=== PATIENT | female | born 1985 | race Caucasian/White ===

== ENCOUNTER → 2017-12-17 10:37 | Outpatient (CLI) | payer BC, SELFPAY ==
[2017-12-17 12:51] LABS: hCG Titer Quant., Serum 2059 mIU/mL (<9 non-preg)
[2017-12-17 20:07] LABS: Chlamydia Trachomatis by PCR Negative (Negative); Neisserai gonorrhoeae by PCR Negative (Negative); Probe Check PASS; Sample Adequacy Control PASS; Specimen Processing Control PASS
[2017-12-18 09:48] LABS: Progesterone Level 19.35 ng/mL (See Comment)
[2017-12-20 14:17] LABS: HPV Reflexed? NOT INDICATED
== END ==
PROVIDERS: Visit Provider Obstetrics & Gynecology
DX: O20.0 Threatened abortion (principal); Z12.4 Encounter for screening for malignant neoplasm of cervix; Z11.3 Encounter for screening for infections with a predominantly sexual mode of transmission
CPT/HCPCS: 36415; 84144; 84702; 87491; 87591; 88175; G0145

== ENCOUNTER → 2017-12-20 08:23 | Outpatient (CLI) | payer BC, SELFPAY ==
[2017-12-20 09:16] LABS: hCG Titer Quant., Serum 4923 mIU/mL (<9 non-preg)
== END ==
PROVIDERS: Visit Provider Obstetrics & Gynecology
DX: O20.0 Threatened abortion (principal)
CPT/HCPCS: 36415; 84702

== ENCOUNTER → 2017-12-31 15:04 | Outpatient (CLI) | payer BC, SELFPAY ==
[2017-12-31 15:52] LABS: Color, Urine Yellow (Yellow); Glucose, Dipstick Normal (Normal); Ketone-Dipstick Negative (Negative); Leukocyte Esterase-Dipstick 25 /ul (Negative); Nitrite-Dipstick Negative (Negative); Occult Blood-Urine 10 /ul (Negative); Protein-Dipstick Negative (Negative); Specific Gravity, Urine 1.025 (1.002-1.030); Urine Bilirubin Dipstick Negative (Negative); Urine Clarity Turbid (Clear); Urine Urobilinogen Normal (Normal)
[2017-12-31 16:29] LABS: Absolute Lymphocyte Count 1.12 X10^3/ul (0.83-4.51); Absolute Neutrophil Count 4.4 X10^3/uL (2.0-7.7); Basophil# 0.01 X10^3/uL; Basophil% 0.2 % (0-1); Eosinophil# 0.04 X10^3/uL; Eosinophils% 0.7 % (0-5); Hematocrit 36.9 % (37-47); Lymphocyte # 1.12 X10^3/ul (4.0); Lymphocyte % 19.2 % (19-41); Mean Corp Hgb Conc 32.5 g/gl (32-36); Mean Corpuscular Hgb 29.4 pg (27.0-32.0); Mean Corpuscular Volume 90.4 fL (81-99); Monocyte# 0.29 X10^3/uL; Neutrophil # 4.36 X10^3/uL (2.7-7.7); Neutrophil % 74.7 % (47-70); Platelet Count 222 K/mm3 (150-450); RBC Distribution Width CV 14.5 % (11.6-14.6); RBC Distribution Width SD 46.8 fl (35.1-43.9); Red Blood Count 4.08 M/mm3 (4.2-5.4); White Blood Count 5.8 K/mm3 (4.4-11.0)
[2017-12-31 16:32] LABS: Thyroid Stim Hormone (TSH) 1.16 uIU/mL (0.358-3.74)
[2017-12-31 16:36] LABS: POSITIVE COUNT NO; POSITIVE DIFFERENTIAL NO; POSITIVE MORPHOLOGY NO
[2017-12-31 16:47] LABS: Amphetamine Urine VISTA NEGATIVE (<1000 ng/mL); Barbiturate Urine VISTA NEGATIVE (< 200 ng/mL); Benzodiazepine Urine VISTA NEGATIVE (< 200 ng/mL); Cocaine Urine VISTA NEGATIVE (< 300 ng/mL); Ecstacy Urine VISTA POSITIVE (< 500 ng/mL); Methadone Urine VISTA NEGATIVE (< 300 ng/mL); PCP Urine VISTA NEGATIVE (< 25 ng/mL); THC Urine VISTA NEGATIVE (< 50 ng/mL); Vista UDS pH Range 5
[2017-12-31 16:51] LABS: COTININE Drug Screen Negative (<200 ng/mL)
[2018-01-01 09:36] LABS: HIV - WCH Non-Reactive (Nonreactive); Rubella IgG 78.3 IU/mL
[2018-01-02 14:23] LABS: HEPATITIS B SURFACE AG Negative (Negative); Hep C Antibodies 0.1 s/co ratio (0.0-0.9)
[2018-01-03 03:15] LABS: Prenatal RPR NONREACTIVE (NONREACTIVE)
== END ==
PROVIDERS: Visit Provider Obstetrics & Gynecology
DX: Z34.81 Encounter for supervision of other normal pregnancy, first trimester (principal)
CPT/HCPCS: 36415; 80307; 81002; 84443; 85025; 86703; 86762; 86803; 87340

== ENCOUNTER → 2018-05-23 13:16 | Outpatient (CLI) | payer BC, SELFPAY ==
[2018-05-23 14:10] LABS: Hematocrit 32.2 % (37-47); Hemoglobin 10.8 g/dl (12.0-15.0); Mean Corp Hgb Conc 33.5 g/gl (32-36); Mean Corpuscular Hgb 31.4 pg (27.0-32.0); Mean Corpuscular Volume 93.6 fL (81-99); Mean Platelet Vol. 9.6 fl (6.2-12.0); Platelet Count 194 K/mm3 (150-450); RBC Distribution Width CV 13.3 % (11.6-14.6); Red Blood Count 3.44 M/mm3 (4.2-5.4); White Blood Count 7.8 K/mm3 (4.4-11.0)
[2018-05-23 14:13] LABS: AST(SGOT) 12 U/L (15-37); Alanine Aminotransfer ALT/SGPT 16 U/L (13-56); Creatinine, Serum 0.61 mg/dL (0.55-1.02); EST Glomerular Filtration Rate 120 mL/min (>60); Est Glom Filt Rate - Afr Amer 145 mL/min (>60); Glucose Challenge Gest 1H 50g 108 mg/dL (70-140); Uric Acid 2.9 mg/dL (2.6-6.0)
[2018-05-23 14:14] LABS: Protein, Urine (Random) 16.2 mg/dL (<11.9)
[2018-05-23 14:15] LABS: International Normalized Ratio 0.9; Partial Thromboplast Time 25.4 Seconds (24.1-36.2); Prothrombin Time (Protime)PT. 12.5 SECONDS (11.7-14.9)
[2018-05-23 14:19] LABS: Scan Indicated on CBC? Y/N NO
== END ==
PROVIDERS: Visit Provider Obstetrics & Gynecology
DX: Z34.83 Encounter for supervision of other normal pregnancy, third trimester (principal)
CPT/HCPCS: 36415; 82565; 82570; 82950; 84156; 84450; 84460; 84550; 85027; 85610; 85730

== ENCOUNTER → 2018-07-24 14:52 | Outpatient (CLI) | payer BC, SELFPAY ==
[2018-07-24 17:33] LABS: Group B Strep DNA By PCR Negative (Negative); Internal Control PASS; Probe Check PASS; Specimen Processing Control PASS
== END ==
PROVIDERS: Visit Provider Obstetrics & Gynecology
DX: Z36.85 Encounter for antenatal screening for Streptococcus B (principal)
CPT/HCPCS: 87081; 87653

== ENCOUNTER → 2018-08-01 11:35 | Outpatient (CLI) | payer BC, SELFPAY ==
[2018-08-01 12:15] LABS: Prothrombin Time (Protime)PT. 12.8 SECONDS (11.7-14.9)
[2018-08-01 12:16] LABS: Hematocrit 33.8 % (37-47); Hemoglobin 11.4 g/dl (12.0-15.0); Mean Corp Hgb Conc 33.7 g/gl (32-36); Mean Corpuscular Hgb 31.3 pg (27.0-32.0); Mean Corpuscular Volume 92.9 fL (81-99); Mean Platelet Vol. 10.4 fl (6.2-12.0); Partial Thromboplast Time 25.1 Seconds (24.1-36.2); Platelet Count 149 K/mm3 (150-450); RBC Distribution Width CV 13.6 % (11.6-14.6); RBC Distribution Width SD 44.6 fl (35.1-43.9); Red Blood Count 3.64 M/mm3 (4.2-5.4); White Blood Count 5.9 K/mm3 (4.4-11.0)
[2018-08-01 12:27] LABS: Scan Indicated on CBC? Y/N NO
[2018-08-01 12:49] LABS: AST(SGOT) 15 U/L (15-37); Alanine Aminotransfer ALT/SGPT 20 U/L (13-56); Creatinine, Serum 0.79 mg/dL (0.55-1.02); EST Glomerular Filtration Rate 88 mL/min (>60); Est Glom Filt Rate - Afr Amer 106 mL/min (>60); Uric Acid 5.1 mg/dL (2.6-6.0)
[2018-08-01 14:03] LABS: Microalbumin:Creatinine Ratio 87.1 mg/g CRE (<30 mg/g CRE); Protein, Urine (Random) 44.3 mg/dL (<11.9)
== END ==
PROVIDERS: Visit Provider Obstetrics & Gynecology
DX: O13.9 Gestational [pregnancy-induced] hypertension without significant proteinuria, unspecified trimester (principal); Z3A.00 Weeks of gestation of pregnancy not specified
CPT/HCPCS: 36415; 82043; 82565; 82570; 84156; 84450; 84460; 84550; 85027; 85610; 85730

== ENCOUNTER 2018-08-03 19:05 | Inpatient (IN) | payer BC, SELFPAY ==
[2018-08-03] VITALS (14 sets, daily range): BP systolic 132–163; BP diastolic 61–95; PULSE 69–92; RESP 12–20; TEMP 36.4–37.1; O2SAT 96–98; BMI 54.2
[2018-08-03] MEDS: 0.9% Saline Lock 10 ML Syringe IV (19:10)
[2018-08-03] MEDS: Lactated Ringers 1,000 ML 999 ML IV (19:10)
[2018-08-03 19:23] LABS: Hematocrit 35.1 % (37-47); Hemoglobin 11.5 g/dl (12.0-15.0); Mean Corp Hgb Conc 32.8 g/gl (32-36); Mean Corpuscular Hgb 30.8 pg (27.0-32.0); Mean Corpuscular Volume 94.1 fL (81-99); Mean Platelet Vol. 10.3 fl (6.2-12.0); Platelet Count 149 K/mm3 (150-450); RBC Distribution Width SD 48.3 fl (35.1-43.9); Red Blood Count 3.73 M/mm3 (4.2-5.4); Scan Indicated on CBC? Y/N NO; White Blood Count 5.7 K/mm3 (4.4-11.0)
[2018-08-03 19:31] LABS: International Normalized Ratio 1.1; Partial Thromboplast Time 27.7 Seconds (24.1-36.2); Prothrombin Time (Protime)PT. 14.6 SECONDS (11.7-14.9)
[2018-08-03] MEDS: Sodium Citrate/Citric Acid 30 ML UDC PO (19:32)
[2018-08-03 19:47] LABS: Protein, Urine (Random) 109.2 mg/dL (<11.9); Protein:Creat Ratio 821 mg/g CRE (0-200)
[2018-08-03 19:48] LABS: ALB/GLOB Ratio 0.6 RATIO (0.9-2.4); AST(SGOT) 11 U/L (15-37); Alanine Aminotransfer ALT/SGPT 13 U/L (13-56); Albumin, Serum 1.3 g/dL (3.2-5.0); Alkaline Phosphatase 58 U/L (45-117); Anion Gap 15 (5-15); BUN 8 mg/dL (7-18); BUN/Creat Ratio 25.7 RATIO (10-20); Calcium,Total 7.2 mg/dL (8.5-10.1); Chloride 108 mmol/L (98-107); Creatinine, Serum 0.31 mg/dL (0.55-1.02); EST Glomerular Filtration Rate 258 mL/min (>60); Est Glom Filt Rate - Afr Amer 312 mL/min (>60); Estimated Creatinine Clearance 209.53 ml/min; Globulin 2.2 g/dL (2.2-4.2); Glucose 59 mg/dL (74-106); Potassium 4.1 mmol/L (3.5-5.1); Protein, Total 3.5 g/dL (6.4-8.2); Sodium Level 139 mmol/L (136-145); Total Bilirubin < 0.10 mg/dL (0.20-1.00); Uric Acid 3.1 mg/dL (2.6-6.0)
[2018-08-03] MEDS: Magnesium Sulfate 20 GM/500 ML BAG IV (20:00)
[2018-08-03] MEDS: Lactated Ringers 1,000 ML 150 ML IV (20:30)
[2018-08-03] MEDS: Oxytocin 30 units/NS 500 ml 30 UNITS/500 ML IV.SOLN 167 UNITS IV (21:00)
--- NOTE | 2018-08-03 21:16 | PCM.OB.CSR ---
- Problem List (1) Chronic hypertension with superimposed preeclampsia Status: Acute (2) 37 weeks gestation of Status: Acute (3) delivery delivered Status: Acute Delivery Classification: EVANS Final RICHARD: 08/27/18 Final RICHARD Source: US <20 weeks Gestational age: 36 Weeks and 4 Days [place] doctor who attended delivery (if requested by OB): Ml Rowe Indications: 33year old @ 37 4/7wga with history of 2 prior sections admitted with chronic hypertension superimposed preeclampsia for repeat section. Risks, benefits, indications reviewed and informed consent obtained. Indications for : Repeat Elective , - - chronic hypertension with superimposed preeclampsia Description of Procedure: Patient was brought to the OR and sign in performed. Spinal analgesia was placed and the patient repositioned into dorsal supine position with left lateral tilt. FHR obtained 140 bpm. The abdominal retraction system was applied and sharma catheter placed. Time out performed. The abdomen was prepped and draped in sterile fashion and the spinal found to be adequate. A Pfannenstiel incision was made and brought down to incise the rectus fascia at the midline and the fascial incision extended laterally. The superior leaflet of the rectus fascia was bluntly and sharply dissected from the underlying muscle. In similar fashion the inferior rectus fascia was dissected from the underlying muscle. The rectus muscles were sharply and the midline and the peritoneum sharply entered. The peritoneal incision was extended. The bladder blade was placed into the abdomen. The vesicouterine peritoneum was identified and bladder flap created. The bladder blade was repositioned. A low transverse hysterotomy was performed using the Metzumbaum scissors. The hysterotomy was bluntly extended and the head brought to the hysterotomy. A vigorous male delivered. The cord was doubly clamped and cut after approximately 60 seconds. The was passed to the awaiting Pediatric Hospitalist. The placenta was expressed from the uterus and appeared intact on inspection. The uterus was cleared of debris. The hysterotomy was repaired using 0 Vicryl. A second imbricating layer was placed for additional hemostasis. There was however few sites of bleeding from venous sinuses. Several figure of eight sutures were placed with hemostasis attained. The peritoneum was reapproximated using 2-0 Vicryl. The rectus fascia was reapproximated using 0 Vicryl. The subcutaneous tissue was reapproximated in 3 layers using 0-Vicryl, 0-Vicryl and 3-0Vicryl, respectively. The skin was closed using 4-0 Monocryl by the FENCE LABORER under my supervision. The patient was transferred to the recovery room without complication. She tolerated the procedure well. Sponge, needle and instrument counts were correct x 2. 4040g Amniotic Membrane Rupture Type: Artificial Amniotic Fluid Description: Clear Placenta Disposition: Sent to Pathology Specimen(s) sent to pathology: placenta Drain: Sharma to straight drain Fluids Replaced: 2000ml Cord Entanglement: None Nuchal Cord Compression: Without compression Cord Vessel Description: 3 Vessels Esitmated Blood Loss (ml): 600 Infant Gender: Male (1 minute): 9 (5 minute): 9 Delayed cord clamping: Yes Pre-op Antibiotic Given: - - Ancef 3g IV x 1 Pt instructed on risks of surgery: Bleeding, Anesthesia Risks, Infection, Need for Future C-Sections, Injury to surrounding structure(s) including bowel and bladder Complications: None - Admit VTE Documentation VTE Present on Admission: No VTE Mechan Device Prophylaxis: SCD's VTE Pharm Prophylaxis ordered?: No
--- NOTE | 2018-08-03 21:27 | OP.PCM_ITS ---
- Problem List (1) Chronic hypertension with superimposed preeclampsia Status: Acute (2) 37 weeks gestation of Status: Acute (3) delivery delivered Status: Acute Delivery Classification: EVANS Final RICHARD: 08/27/18 Final RICHARD Source: US <20 weeks Gestational age: 36 Weeks and 4 Days [place] doctor who attended delivery (if requested by OB): Ml Rowe Indications: 33year old @ 37 4/7wga with history of 2 prior sections admit roz with chronic hypertension superimposed preeclampsia for repeat section. Risks, benefits, indications reviewed and informed consent obtained. Indications for : Repeat Elective , - - chronic hypertension with superimposed preeclampsia Description of Procedure: Patient was brought to the OR and sign in performed. Spinal analgesia was placed and the patient repositioned into dorsal supine position with left lateral tilt. FHR obtained 140 bpm. The abdominal retraction system was applied and sharma catheter placed. Time out performed. The abdomen was prepped and draped in sterile fashion and the spinal found to be adequate. A Pfannenstiel incision was made and brought down to incise the rectus fascia at the midline and the fascial incision extended laterally. The superior leaflet of the rectus fascia was bluntly and sharply dissected from the underlying muscle. In similar fashion the inferior rectus fascia was dissected from the underlying muscle. The rectus muscles were sharply and the midline and the peritoneum sharply entered. The peritoneal incision was extended. The bladder blade was placed into the abdomen. The vesicouterine peritoneum was identified and bladder flap created. The bladder blade was repositioned. A low transverse hysterotomy was performed using the Metzumbaum scissors. The hysterotomy was bluntly extended and the head brought to the hysterotomy. A vigorous male delivered. The cord was doubly clamped and cut after approximately 60 seconds. The was passed to the awaiting Pediatric Hospitalist. The placenta was expressed from the uterus and appeared intact on inspection. The uterus was cleared of debris. The hysterotomy was repaired using 0 Vicryl. A second imbricating layer was placed for additional hemostasis. There was however few sites of bleeding from venous sinuses. Several figure of eight sutures were placed with hemostasis attained. The peritoneum was reapproximated using 2-0 Vicryl. The rectus fascia was reapproximated using 0 Vicryl. The subcutaneous tissue was reapproximated in 3 layers using 0-Vicryl, 0-Vicryl and 3-0Vicryl, respectively. The skin was closed using 4-0 Monocryl by the SENIOR SYSTEMS PROGRAMMER under my supervision. The patient was transferred to the recovery room without complication. She tolerated the procedure well. Sponge, needle and instrument counts were correct x 2. Infant 4040g Amniotic Membrane Rupture Type: Artificial Amniotic Fluid Description: Clear Placenta Disposition: Sent to Pathology Specimen(s) sent to pathology: placenta Drain: Sharma to straight drain Fluids Replaced: 2000ml Cord Entanglement: None Nuchal Cord Compression: Without compression Cord Vessel Description: 3 Vessels Esitmated Blood Loss (ml): 600 Infant Gender: Male (1 minute): 9 (5 minute): 9 Delayed cord clamping: Yes Pre-op Antibiotic Given: - - Ancef 3g IV x 1 Pt instructed on risks of surgery: Bleeding, Anesthesia Risks, Infection, Need for Future C-Sections, Injury to surrounding structure(s) including bowel and bladder Complications: None - Admit VTE Documentation VTE Present on Admission: No VTE Mechan Device Prophylaxis: SCD's VTE Pharm Prophylaxis ordered?: No
--- NOTE | 2018-08-03 21:31 | PLAC_PTH ---
PATIENT: REI FLANAGAN LOC: [facility] U#:[id number] AGE/SX: 33/F ROOM: WP011 RE08/03/[address]: Dr. Ana Lujan MD : 1985 BED: 1 DIS: 08/06/2018 SPEC #: [id number] RECD: 08/04/18 04:03 STATUS: NAMITA SHALA #: [id number] TARA: 08/03/18 21:[address]: Ana Thompson DEPT: SURGICAL PATHOLOGY RECD BY: Glenroy Schulte Tissues: Placenta, NOS Procedures: Surgery Specimen Level V HEADER OPERATION: Repeat section PRE-OP DIAGNOSIS: CHTN with superimposed preeclampsia, 37 weeks TISSUE SUBMITTED: Placenta MICROSCOPIC DIAGNOSIS Placenta: Placental disc - third trimester placenta (535 gm). Focal area of intraparenchymal hemorrhage (1.5 and 2 cm in greatest dimension). Membranes - no pathologic diagnosis. Umbilical cord - three blood vessels and no pathologic diagnosis. SJ:emmanuel 08/06/18 MICROSCOPIC DESCRIPTION Slides are reviewed. GROSS DESCRIPTION SPECIMEN: PLACENTA / CLINICAL INFORMATION: A. Weight: 4.04 kg B. Gestational Age: 37 weeks C. Sex: Male PLACENTAL WEIGHT (POST FIXATION): 535 gm PLACENTAL DIMENSIONS: 21 x 15 x 3 cm PLACENTAL SHAPE: Usual ovoid PLACENTAL WEIGHT FOR GESTATIONAL AGE: Within 10-99th percentile MEMBRANES - Present A. Insertion: Marginal B. Site of rupture from edge: 5 cm from edge of placental disc. C. Color of membrane: Jaime-short D. Abnormalities: None UMBILICAL CORD - Present A. Color: Jaime-short B. Insertion: Paracentral C. Length: 28 cm D. Diameter: 1.5cm E. Number of vessels: Three F. Abnormalities: None PLACENTAL DISC - Present A. Color of surface: Jaime-short B. surface abnormalities: None C. Maternal cotyledons: Intact with minimal tears. Maternal surface is partly disrupted in one-half of the placenta. No obvious clots are identified in this portion. D. Attached retro placental clot: No clot E. Cut surface: Dark red and spongy F. Lesions: Sections reveal two jaime, hemorrhagic and indurated areas measuring 1.5 and 2 cm in greatest dimension. G. Separate clot: Absent SECTIONS SUBMITTED: 1. Membrane roll 2. Cord, maternal end 3. Cord, end, smaller lesion 4. Placental disc, and maternal surfaces, larger lesion 5. Placental disc, and maternal surfaces 6. Placental disc, and maternal surfaces SIMA:emmanuel 08/05/18 TC:5 CPT: 45940
--- NOTE | 2018-08-03 21:47 | PCM.DCCSEC ---
Discharge Diet: No Restrictions Discharge Activity: Return to Normal Activity, May not drive while taking narcotic pain medications., May Shower May resume sexual activity in: 6 weeks Lifting Restrictions: 10-20 lb Call your doctor if your incision/area has: Continuous Slow Oozing, Sudden Increased Bleeding, Increased Pain/ Swelling, Increased Redness, Foul Smelling Discharge Call your doctor if you observe: Fever of 101 or Higher, Inability to urinate, Inability to have a bowel movement, Using more than one pad per hour, Shortness of breath, Chest pain, Calf discomfort, Uncontrolled pain Suture Line Care: Avoid Pulling/Pushing Remove Dressing in (days):: 5 Cleanse incision/area with: Soap & Water Instructions: Discharge Instructions for High Blood Pressure (Hypertension) Additional Instructions: If you experience any of the following, contact your healthcare provider. Bleeding that soaks a pad every hour for 2 hours Fever 100.4 or higher Unrelieved incision or abdominal pain Swelling, redness, discharge or bleeding from your incision or episiotomy site Your incision begins to separate Problems urinating (including inability to urinate or burning while urinating). Visual changes Severe headache Flu-like symptoms Pain or redness in one of both of your breasts Pain, warmth, tenderness or swelling in your legs, especially the calf area Frequent nausea and vomiting Symptoms of depression or anxiety If you experience any of the following, call 911 or go to the nearest Emergency Room. Chest pain Problems breathing Seizure activity Partial or complete paralysis of a body part, slurred speech, weakness or drooping of the face, or a sudden inability to walk or hold your balance Allergies/Adverse Reactions: Allergies Sulfa (Sulfonamide Antibiotics) Adverse Reaction (Verified 04/24/17 13:17) Vomiting Medications to take at Discharge Docusate Sodium [Colace] 100 mg PO BID PRN PRN #60 capsule 08/03/18 Oxycodone [Oxyir] 5 mg PO Q6H PRN PRN 5 Days #20 tablet 08/03/18 The following prescriptions were given: Oxycodone [Oxyir] 5 mg PO Q6H PRN PRN 5 Days #20 tablet PRN Reason: Severe Pain (6-07/16) Docusate Sodium [Colace] 100 mg PO BID PRN PRN #60 capsule PRN Reason: Constipation Follow-Up: Call to make an appointment with your doctor for an incision check in 1-2 weeks. You will also need a 6 week post- follow up appointment. Test results from this visit will be discussed in further detail at your follow-up appointment, if applicable. Please Follow Up With: Gavino Cortez MD - Blood pressure, incision check When: 7-10 days Please Follow Up With: Gavino Cortez MD - visit When: 6 weeks
--- NOTE | 2018-08-03 21:50 | DCINST_ITS ---
Discharge Diet: No Restrictions Discharge Activity: Return to Normal Activity, May not drive while taking narcotic pain medications., May Shower May resume sexual activity in: 6 weeks Lifting Restrictions: 10-20 lb Call your doctor if your incision/area has: Continuous Slow Oozing, Sudden Increased Bleeding, Increased Pain/ Swelling, Increased Redness, Foul Smelling Discharge Call your doctor if you observe: Fever of 101 or Higher, Inability to urinate, Inability to have a bowel movement, Using more than one pad per hour, Shortness of breath, Chest pain, Calf discomfort, Uncontrolled pain Suture Line Care: Avoid Pulling/Pushing Remove Dressing in (days):: 5 Cleanse incision/area with: Soap & Water Instructions: Discharge Instructions for High Blood Pressure (Hypertension) Additional Instructions: If you experience any of the following, contact your healthcare provider. * Bleeding that soaks a pad every hour for 2 hours * Fever 100.4 or higher * Unrelieved incision or abdominal pain * Swelling, redness, discharge or bleeding from your incision or episiotomy site * Your incision begins to separate * Problems urinating (including inability to urinate or burning while urinating). * Visual changes * Severe headache * Flu-like symptoms * Pain or redness in one of both of your breasts * Pain, warmth, tenderness or swelling in your legs, especially the calf area * Frequent nausea and vomiting * Symptoms of depression or anxiety If you experience any of the following, call 911 or go to the nearest Emergency Room. * Chest pain * Problems breathing * Seizure activity * Partial or complete paralysis of a body part, slurred speech, weakness or drooping of the face, or a sudden inability to walk or hold your balance Allergies/Adverse Reactions: Allergies Sulfa (Sulfonamide Antibiotics) Adverse Reaction (Verified 04/24/17 13:17) Vomiting Medications to take at Discharge Docusate Sodium [Colace] 100 mg PO BID PRN PRN #60 capsule 08/03/18 Oxycodone [Oxyir] 5 mg PO Q6H PRN PRN 5 Days #20 tablet 08/03/18 The following prescriptions were given: Oxycodone [Oxyir] 5 mg PO Q6H PRN PRN 5 Days #20 tablet PRN Reason: Severe Pain (-07/16) Docusate Sodium [Colace] 100 mg PO BID PRN PRN #60 capsule PRN Reason: Constipation Follow-Up: Call to make an appointment with your doctor for an incision check in 1-2 weeks. You will also need a 6 week post- follow up appointment. Test results from this visit will be discussed in further detail at your follow- up appointment, if applicable. Please Follow Up With: Gavino Cortez MD - Blood pressure, incision check When: 7-10 days Please Follow Up With: Gavino Cortez MD - visit When: 6 weeks
[2018-08-04] VITALS (26 sets, daily range): BP systolic 104–148; BP diastolic 57–78; PULSE 72–89; RESP 14–20; TEMP 36.6–37.3; O2SAT 94–99
[2018-08-04 04:05] LABS: Pathology Specimen OB SEE PATHOLOGY REPORT
[2018-08-04] MEDS: Ketorolac 30 MG/ML Syringe IV ×3 (04:29→20:28)
[2018-08-04] MEDS: Magnesium Sulfate 20 GM/500 ML BAG IV ×2 (06:44→17:04)
[2018-08-04] MEDS: Lactated Ringers 500 ML 999 ML IV (07:15)
[2018-08-04] MEDS: Lactated Ringers 1,000 ML 50 ML IV (07:45)
--- NOTE | 2018-08-04 07:52 | NURSING ---
Dr. Spivey notified at 0615 that pt's sharma was emptied for 175cc of concentrated, clear, fidel urine. Sharma last emptied at 0000. also notified of AM BP's of 105/57 and 104/71. ordered 500cc bolus of LR over 30 minutes, hold 0600 labetolol dose this am, and draw serum creatinine with cbc this am.
--- NOTE | 2018-08-04 08:12 | PCM.PN.OB ---
Patient Problems: Active and Suspected Problems Chronic hypertension with superimposed preeclampsia (Acute) 37 weeks gestation of (Acute) delivery delivered (Acute) Subjective: Relates sinus headache and requests Zyrtec. Denies vision changes or abdominal pain. Incisional pain well controlled. She feels well this morning. No nausea or vomiting. Objective: AVSS - Physical Exam General: Alert, Oriented x3, Cooperative, No apparent distress HEENT: Atraumatic, Normocephalic Lungs: Clear to auscultation, Normal air movement Cardiovascular: Regular rate, Regular Rhythm, Normal S1, Normal S2 Abdomen: Bowel Sounds Present, Soft, Non Tender, Non-Distended, - - Fundus firm and nontender - pannal edema present - incisional dressing c/d/i, lochia scant Extremities: No Calf Tenderness, - - +1 b/l LE edema Neurological: - - No clonus, +2 b/l LE DTRs Psych/Mental Status: Normal Affect, Appropriate, Alert and oriented to time, place, person, mood and affect Vital Signs Temp Pulse Resp BP Pulse Ox 98.1 F 77 16 105/57 L 97 08/04/18 06:48 08/04/18 06:48 08/04/18 06:48 08/04/18 06:48 08/04/18 06:48 Oxygen Delivery Method CPAP Weight: 138.9 kg Body Mass Index (BMI) 54.2 Intake and Output for Last 24 Hours 08/02/18 08/03/18 08/04/18 23:59 23:59 23:59 Intake Total 3416 / 3416 1750 / 1750 Output Total 200 / 200 175 / 175 Balance 3216 / 3216 1575 / 1575 Laboratory Tests Past 24 Hrs 08/03/18 08/03/18 08/03/18 19:10 19:10 19:10 WBC 5.7 RBC 3.73 L Hgb 11.5 L Hct 35.1 L MCV 94.1 MCH 30.8 MCHC 32.8 RDW 14.0 RDW Differential 48.3 H Plt Count 149 L MPV 10.3 PT 14.6 INR 1.1 APTT 27.7 Sodium 139 Potassium 4.1 Chloride 108 H Carbon Dioxide 16.0 L Anion Gap 15 BUN 8 Creatinine 0.31 L Estim Creat Clear Calc 209.53 Est GFR (MDRD) Af Amer 312 Est GFR (MDRD) Non-Af 258 BUN/Creatinine Ratio 25.7 H Glucose 59 L Uric Acid 3.1 Calcium 7.2 L Total Bilirubin < 0.10 L AST 11 L ALT 13 Alkaline Phosphatase 58 Total Protein 3.5 L Albumin 1.3 L Globulin 2.2 Albumin/Globulin Ratio 0.6 L U Random Total Protein Urine Creatinine Protein/Creatinin Ratio Blood Type Antibody Screen 08/03/18 08/03/18 19:10 19:30 WBC RBC Hgb Hct MCV MCH MCHC RDW RDW Differential Plt Count MPV PT INR APTT Sodium Potassium Chloride Carbon Dioxide Anion Gap BUN Creatinine Estim Creat Clear Calc Est GFR (MDRD) Af Amer Est GFR (MDRD) Non-Af BUN/Creatinine Ratio Glucose Uric Acid Calcium Total Bilirubin AST ALT Alkaline Phosphatase Total Protein Albumin Globulin Albumin/Globulin Ratio U Random Total Protein 109.2 H Urine Creatinine 133.00 Protein/Creatinin Ratio 821 H Blood Type A POSITIVE Antibody Screen NEGATIVE Medical Necessity - Tobacco Use Smoking Status: Never smoker Assessment/Plan All Active Problems Chronic hypertension with superimposed preeclampsia (Acute) 37 weeks gestation of (Acute) delivery delivered (Acute) 33yo POD#1 s/p RLTCS for cHTN with superimposed preeclampsia -BPs improved this am - am Labetalol held, will continue to monitor -UO low - 500cc bolus given -Continue magnesium to 24h or diuresis -Routine postop care -Rh positive
[2018-08-04 08:33] LABS: Hemoglobin 9.5 g/dl (12.0-15.0); Mean Corp Hgb Conc 32.8 g/gl (32-36); Mean Corpuscular Volume 94.8 fL (81-99); Platelet Count 113 K/mm3 (150-450); RBC Distribution Width CV 14.2 % (11.6-14.6); RBC Distribution Width SD 48.6 fl (35.1-43.9); Red Blood Count 3.06 M/mm3 (4.2-5.4); White Blood Count 5.8 K/mm3 (4.4-11.0)
[2018-08-04 08:34] LABS: Scan Indicated on CBC? Y/N NO
[2018-08-04 08:58] LABS: Creatinine, Serum 0.77 mg/dL (0.55-1.02); EST Glomerular Filtration Rate 91 mL/min (>60); Est Glom Filt Rate - Afr Amer 110 mL/min (>60); Estimated Creatinine Clearance 84.36 ml/min
[2018-08-04] MEDS: Senna/Docusate Sodium 1 Tablet PO (09:14)
[2018-08-04] MEDS: Acetaminophen 500 MG Tablet 1000 MG PO ×2 (09:15→17:03)
[2018-08-04] MEDS: 0.9% Saline Lock 10 ML Syringe IV ×2 (12:17→20:29)
[2018-08-04] MEDS: Labetalol 200 MG Tablet 600 MG PO ×2 (14:02→21:57)
--- NOTE | 2018-08-04 19:29 | NURSING ---
rate verified with LCoe RN at shift change.
[2018-08-05 01:25] VITALS: BP 141/72; PULSE 85; RESP 18; TEMP 37.1; O2SAT 98
[2018-08-05] MEDS: oxyCODONE 5 MG Tablet PO ×4 (01:32→21:45)
[2018-08-05] MEDS: 0.9% Saline Lock 10 ML Syringe IV ×3 (04:18→18:36)
[2018-08-05] MEDS: Ketorolac 30 MG/ML Syringe IV ×3 (04:20→18:36)
[2018-08-05 05:44] VITALS: BP 134/64; PULSE 80; RESP 18; TEMP 36.8; O2SAT 98
[2018-08-05] MEDS: Labetalol 200 MG Tablet 600 MG PO ×3 (05:49→21:45)
[2018-08-05 06:14] LABS: Absolute Lymphocyte Count 0.83 X10^3/ul (0.83-4.51); Basophil# 0.01 X10^3/uL; Basophil% 0.2 % (0-1); Eosinophil# 0.03 X10^3/uL; Eosinophils% 0.6 % (0-5); Hematocrit 27.2 % (37-47); Hemoglobin 8.8 g/dl (12.0-15.0); Lymphocyte # 0.83 X10^3/ul (4.0); Lymphocyte % 16.1 % (19-41); Mean Corp Hgb Conc 32.4 g/gl (32-36); Mean Corpuscular Hgb 30.9 pg (27.0-32.0); Mean Corpuscular Volume 95.4 fL (81-99); Mean Platelet Vol. 9.7 fl (6.2-12.0); Monocyte# 0.26 X10^3/uL; Neutrophil # 4.02 X10^3/uL (2.7-7.7); Neutrophil % 77.7 % (47-70); Platelet Count 123 K/mm3 (150-450); RBC Distribution Width CV 14.1 % (11.6-14.6); RBC Distribution Width SD 46.3 fl (35.1-43.9); Red Blood Count 2.85 M/mm3 (4.2-5.4); White Blood Count 5.2 K/mm3 (4.4-11.0)
[2018-08-05 06:24] LABS: POSITIVE COUNT NO; POSITIVE DIFFERENTIAL NO; POSITIVE MORPHOLOGY NO
[2018-08-05 07:50] VITALS: BP 140/77; PULSE 83; RESP 16; TEMP 37.3; O2SAT 98
[2018-08-05] MEDS: Senna/Docusate Sodium 1 Tablet PO (07:54)
--- NOTE | 2018-08-05 08:15 | PCM.PN.OB ---
Patient Problems: Active and Suspected Problems Chronic hypertension with superimposed preeclampsia (Acute) 37 weeks gestation of (Acute) delivery delivered (Acute) Subjective: Denies headache, vision changes. She is sore this morning. OOB to chair and walking. Passing flatus. Infant is being monitored for blood sugars. Objective: AVSS - Physical Exam General: Alert, Oriented x3, Cooperative, No apparent distress HEENT: Atraumatic, Normocephalic Lungs: Clear to auscultation, Normal air movement Cardiovascular: Regular rate, Regular Rhythm, Normal S1, Normal S2 Abdomen: Bowel Sounds Present, Soft, Non Tender, Non-Distended, - - Incisional dressing c/d/i Extremities: No Calf Tenderness, - - b/l LE edema to calves - 1+ Neurological: Neuro grossly intact Psych/Mental Status: Normal Affect, Appropriate, Alert and oriented to time, place, person, mood and affect Vital Signs Temp Pulse Resp BP Pulse Ox 98.3 F 80 18 134/64 H 98 08/05/18 05:44 08/05/18 05:44 08/05/18 05:44 08/05/18 05:44 08/05/18 05:44 Oxygen Delivery Method Room Air Weight: 138.9 kg Body Mass Index (BMI) 54.2 Intake and Output for Last 24 Hours 08/03/18 08/04/18 08/05/18 23:59 23:59 23:59 Intake Total 3416 / 3416 3824 / 3824 Output Total 200 / 200 2105 / 2105 200 / 200 Balance 3216 / 3216 1719 / 1719 -200 / -200 Laboratory Tests Past 24 Hrs 08/04/18 08/04/18 08/05/18 07:50 07:50 06:00 WBC 5.8 5.2 RBC 3.06 L 2.85 L Hgb 9.5 L 8.8 L Hct 29.0 L 27.2 L MCV 94.8 95.4 MCH 31.0 30.9 MCHC 32.8 32.4 RDW 14.2 14.1 RDW Differential 48.6 H 46.3 H Plt Count 113 L 123 L MPV 10.0 9.7 Immature Gran % (Auto) 0.400 Neut % (Auto) 77.7 H Lymph % (Auto) 16.1 L [place] % (Auto) 5.0 Eos % (Auto) 0.6 Baso % (Auto) 0.2 Absolute Neuts (auto) 4.0 Absolute Lymphs (auto) 0.83 Total Counted Not Reportable Creatinine 0.77 Estim Creat Clear Calc 84.36 Est GFR (MDRD) Af Amer 110 Est GFR (MDRD) Non-Af 91 Medical Necessity - Tobacco Use Smoking Status: Never smoker Assessment/Plan All Active Problems Chronic hypertension with superimposed preeclampsia (Acute) 37 weeks gestation of (Acute) delivery delivered (Acute) 33yo POD#2 s/p RLTCS for cHTN with superimposed preeclampsia -s/p magnesium. -BPs normal to mildly elevated - will titrate antihypertensive as needed. -Rh positive -Routine postop care
--- NOTE | 2018-08-05 08:41 | NURSING ---
pt provided contour gel pads and instructed on use
[2018-08-05] MEDS: Sertraline 50 MG Tablet PO (10:28)
[2018-08-05] MEDS: Acetaminophen 500 MG Tablet 1000 MG PO (10:33)
[2018-08-05 14:30] VITALS: BP 147/73; PULSE 80; RESP 16; TEMP 37; O2SAT 95
[2018-08-05 20:00] VITALS: BP 152/73; PULSE 76; RESP 18; TEMP 37.8; O2SAT 97
[2018-08-05 22:20] VITALS: BP 149/74; PULSE 75
[2018-08-06 04:00] VITALS: BP 156/80; PULSE 85; RESP 16; TEMP 37.1; O2SAT 98
[2018-08-06] MEDS: Acetaminophen 500 MG Tablet 1000 MG PO ×2 (04:31→14:33)
[2018-08-06] MEDS: Labetalol 200 MG Tablet 600 MG PO ×2 (06:19→14:33)
[2018-08-06 08:10] VITALS: BP 148/75; PULSE 82; RESP 16; TEMP 37.1; O2SAT 97
--- NOTE | 2018-08-06 08:32 | PCM.PN.OB ---
Patient Problems: Active and Suspected Problems Chronic hypertension with superimposed preeclampsia (Acute) 37 weeks gestation of (Acute) delivery delivered (Acute) Subjective: No complaints. Pain reasonably controlled. Breast feeding and pumping. Objective: Afeb BP stable but modestly elevated. - Physical Exam General: Alert, Oriented x3, Cooperative, No apparent distress Lungs: Clear to auscultation, Normal air movement Cardiovascular: Regular rate, Regular Rhythm Abdomen: Soft, Non Tender, Non-Distended, - - Incision dressing dry. Extremities: Edema - 1+ Skin: No rashes Neurological: Neuro grossly intact Psych/Mental Status: Normal Affect Comment: Lochia light Vital Signs Temp Pulse Resp BP Pulse Ox 98.8 F 82 16 148/75 H 97 08/06/18 08:10 08/06/18 08:10 08/06/18 08:10 08/06/18 08:10 08/06/18 08:10 Oxygen Delivery Method Room Air Weight: 306 lb 3.553 oz Body Mass Index (BMI) 54.2 Intake and Output for Last 24 Hours 08/04/18 08/05/18 08/06/18 23:59 23:59 23:59 Intake Total 3824 / 3824 Output Total 2105 / 2105 200 / 200 Balance 1719 / 1719 -200 / -200 Medical Necessity - Tobacco Use Smoking Status: Never smoker Assessment/Plan All Active Problems Chronic hypertension with superimposed preeclampsia (Acute) 37 weeks gestation of (Acute) delivery delivered (Acute) Stable on POD#3. Will discharge to hotel status today. Home going instructions and warnings given.
--- NOTE | 2018-08-06 08:34 | PCM.DC.SUM ---
Discharge Date and Diagnosis - Problem List Patient Problems: Active and Suspected Problems Chronic hypertension with superimposed preeclampsia (Acute) 37 weeks gestation of (Acute) delivery delivered (Acute) Date of Admission: 08/03/18 Date of Discharge: 08/06/18 - Primary Discharge Diagnosis Active and Suspected Problems Chronic hypertension with superimposed preeclampsia (Acute) 37 weeks gestation of (Acute) delivery delivered (Acute) - Secondary Discharge Diagnosis Chronic Problems Previous section complicating , with delivery (Chronic) Hospital Course and Treatment Operations: - - Repeat LTCS Summary of Care Provided: The patient is a 33 year old F [admitted with worsening BPs and significant proteinuria with headache. Repeat LTCS performed without complication. Placed on magnesium sulfate prophylaxis due to preeclampsia but made uneventful PO recovery. Discharged on POD#3.] Patient Problems: Active and Suspected Problems Chronic hypertension with superimposed preeclampsia (Acute) 37 weeks gestation of (Acute) delivery delivered (Acute) - Physical Exam Vital Signs Temp Pulse Resp BP Pulse Ox 98.8 F 82 16 148/75 H 97 08/06/18 08:10 08/06/18 08:10 08/06/18 08:10 08/06/18 08:10 08/06/18 08:10 Oxygen Delivery Method Room Air Weight: 306 lb 3.553 oz Body Mass Index (BMI) 54.2 Intake and Output for Last 24 Hours 08/04/18 08/05/18 08/06/18 23:59 23:59 23:59 Intake Total 3824 / 3824 Output Total 2105 / 2105 200 / 200 Balance 1719 / 1719 -200 / -200 Discharge Diet: No Restrictions Discharge Activity: Return to Normal Activity, May not drive while taking narcotic pain medications., May Shower May resume sexual activity in: 6 weeks Call your doctor if your incision/area has: Continuous Slow Oozing, Sudden Increased Bleeding, Increased Pain/ Swelling, Increased Redness, Foul Smelling Discharge Call your doctor if you observe: Fever of 101 or Higher, Inability to urinate, Inability to have a bowel movement, Using more than one pad per hour, Shortness of breath, Chest pain, Calf discomfort, Uncontrolled pain Suture Line Care: Avoid Pulling/Pushing Remove Dressing in (days):: 5 Cleanse incision/area with: Soap & Water Home Medications: Medications to take at Discharge Docusate Sodium [Colace] 100 mg PO BID PRN PRN #60 capsule 08/03/18 Oxycodone [Oxyir] 5 mg PO Q6H PRN PRN 5 Days #20 tablet 08/03/18 Ferrous Sulfate 325 mg PO BID #60 tablet. 08/05/18 Ibuprofen 600 mg PO 4X/DAY #30 tab 08/06/18 Labetalol [Trandate (Beta José Miguel)] 600 mg PO TID #90 tab 08/06/18 Oxycodone [Oxyir] 5 - 10 mg PO Q4H PRN PRN 7 Days #28 tab 08/06/18 Following Prescrptions Were Given to Patient: Oxycodone [Oxyir] 5 - 10 mg PO Q4H PRN PRN 7 Days #28 tab PRN Reason: Mod-Severe Pain (-07/16) Oxycodone [Oxyir] 5 mg PO Q6H PRN PRN 5 Days #20 tablet PRN Reason: Severe Pain (6-07/16) Docusate Sodium [Colace] 100 mg PO BID PRN PRN #60 capsule PRN Reason: Constipation Ferrous Sulfate 325 mg PO BID #60 tablet. Labetalol [Trandate (Beta José Miguel)] 600 mg PO TID #90 tab Ibuprofen 600 mg PO 4X/DAY #30 tab Please Follow Up With: Gavino Cortez MD - Blood pressure, incision check When: 7-10 days Please Follow Up With: Gavino Cortez MD - visit When: 6 weeks Patient Instructions: Discharge Instructions for High Blood Pressure (Hypertension) Disposition: Home Minutes spent on discharge:: 15 Patient Condition:: Good Medical Necessity - Tobacco Use Smoking Status: Never smoker Meaningful Use Info Meaningful Use Diagnoses (Choose all that apply): None applicable
[2018-08-06] MEDS: Sertraline 50 MG Tablet PO (10:00)
[2018-08-06] MEDS: Ibuprofen 600 MG Tablet PO (10:04)
[2018-08-06] MEDS: Senna/Docusate Sodium 1 Tablet PO (10:06)
[2018-08-06 14:30] VITALS: BP 167/78; PULSE 86; RESP 14; TEMP 37.2; O2SAT 96
[2018-08-06 18:00] VITALS: BP 154/97; RESP 16
--- NOTE | 2018-08-06 18:25 | NURSING ---
Discharged to [facility] stay while baby remains in [facility].
--- NOTE | 2018-08-08 13:30 | CASEMGMT ---
Social Work Assessment Labor and Delivery Unit Date of Referral: 08-04-2018 Time of Referral: 09 Date of Intervention: 08-08-2018 Time of Intervention: 1330 Referred by: oven roaster, Dr. Miguel Nair Reason for Referral: [facility]; maternal history of depression History obtained from: Medical record, mother of baby (MOB) and father of baby (FOB). Educated MOB that as this assembly instructions writer is the social media executive for hospital of delivery labor and delivery unit, for continuity of care of families while on the [facility] this assembly instructions writer is assigned as the social media executive to the [facility] Household composition: NABOR Mccall and FORussel Sloan, along with all of their children. Home situation is reported to be safe and adequate. Patient's parent/guardian status: NABOR is 33 year old to WHITNEY, who is the father to all of NABOR's children. Minor children include: Augustus (b. 10-18-2012), Tomy (b. 06.06.2016) and Irineo (b. 08.03.2018). No reports or indication of abuse or safety concerns at home. Medical History: NABOR is G5, P2 to 3 after delivering Irineo. MOB with one first trimester loss in 2010 and then a 16 week loss in 2017. care this started in the first trimester and adequate thereafter. MOB with longstanding history of HTN, and history of preeclampsia. MOB reports this delivery was the first experience of being placed on mag post delivery. Irineo delivered at 37 weeks, weighed 8 pounds 15 ounces, Apgars 9 and 9. Educational Status: NABOR is college educated. No issues with reading, writing, or learning comprehension. Health Care Coverage: [employer] Financial Status: Both parent are gainfully employed. No financial concerns reported or indicated. MOB works in [employer] for [employer] and FOB for [employer]. Childcare/Caregiver(s): MOB and FOB; Parents do have a daycare/preschool lined up for the children. Transportation: No reported issues. Programs/Agencies Involved: No agency involvement or reported/indicated need for referrals for financial help. No reports of any past or present involvement with children services. Behavioral Health Issues: NABOR with history of depression in 2017 after the 16 week loss. MOB reports was place on Sertraline and was going to try and wean off this , but she and FOB thought it would be a good idea to remain on the medicine. MOB reports plan to maintain on medication in this period. MOB denies any thoughts, plans ,intent for harm to self or others. MOB does report that had a lot of stress in 2017 with the loss of the baby at 16 weeks, and MOB's father dying in June of 2017. MOB does have history of treatment with Xanax as needed, but was not on this during . MOB denies any use of illicit drugs and no abuse of prescribed medicine reported or indicated. MOB does not use tobacco. No alcohol use in . MOB with one positive drug screen this on 12.31.17 for MDMA, which was the same for MOB last . In 2016 after investigation the MDMA ended up being a false positive for labetalol (HTN medication). Family Stressors: Maternal history of depression after loss in 2017 and also loss of MOB's father. MOB dealing with high blood pressures now, so this has been more stressful. baby currently admitted to [facility]. No other stressors or concerns reported or identified. Support Systems: MOB, family, and friends. MOB reports support system is adequate. Assessment MOB and FOB both pleasant, cooperative, and engaging in conversation. MOB held good eye contact, bright affect, mood and affect appropriate and congruent to content. MOB and FOB reports to have needed supplies for baby, to have support system as well. MOB plans to remain on antidepressant medication in the period, and receptive to taking depression packet from this assembly instructions writer for home going reference needs (included counseling options should MOB feel the need for more support down the road). Plan MOB and baby to home when medically stable. Resources have been provided. No further needs requested or indicated. -EDDA Griffin, MANAGER OF DRILLING
== END 2018-08-06 17:45 | disposition home or self-care (01) | DRG 788 ==
LOC: WPOUT 19:08 → WP 20:14
PROVIDERS: Admitting Provider Obstetrics & Gynecology; Referring Provider Obstetrics & Gynecology; Visit Provider Obstetrics & Gynecology
DX: O11.4 Pre-existing hypertension with pre-eclampsia, complicating childbirth (principal); O10.92 Unspecified pre-existing hypertension complicating childbirth; O69.81X0 Labor and delivery complicated by cord around neck, without compression, not applicable or unspecified; Z3A.37 37 weeks gestation of pregnancy; Z37.0 Single live birth; Z79.899 Other long term (current) drug therapy
CPT/HCPCS: 59050; 80053; 82565; 82570; 84156; 84550; 85025; 85027; 85610; 85730; 86850; 86900; 88307; 99218; J7120; 90686; A4216; G0378

== ENCOUNTER 2018-08-11 21:55 | Inpatient (IN) | payer BC, SELFPAY ==
[2018-08-11 21:57] VITALS: BP 234/127; PULSE 76; RESP 16; TEMP 36.9; O2SAT 94; BMI 49.8
--- NOTE | 2018-08-11 21:58 | EKG12_ITS ---
Test Reason : CP Blood Pressure : / mmHG Vent. Rate : 081 BPM Atrial Rate : 081 BPM P-R Int : 154 ms QRS Dur : 086 ms QT Int : 364 ms P-R-T Axes : 059 -14 015 degrees QTc Int : 422 ms Normal sinus rhythm Possible Left atrial enlargement Borderline ECG Confirmed by IVONNE VELAZQUEZ, JERALD ([id number]), slot editor HANNAH MAI ([id number]) on 08/14/2018 3:29:20 PM Referred By: LORIE Confirmed By:JERALD CORONADO MD
--- NOTE | 2018-08-11 22:01 | ED.RN ---
NO OLD EKGS IN MUSE
--- NOTE | 2018-08-11 22:10 | RAD_ITS ---
STUDY: X-RAY CHEST REASON FOR EXAM: Female, 33 years old. Shortness of breath and chest pain TECHNIQUE: Single AP portable view of the chest. COMPARISON: None. FINDINGS: equipment monitor phototypesetting leads are present. There are bilateral pulmonary infiltrates in a predominantly perihilar distribution. There is no demonstrated pleural abnormality. Normal size heart. Normal mediastinum and dario. Normal visualized pulmonary arteries. Normal visualized aortic arch and descending thoracic aorta. Normal visualized thoracic spine. Normal visualized ribs, clavicles, and shoulders. There is no demonstrated abnormality of the visualized soft tissue structures of the upper abdomen. RAD/Chest 1 View (Portable) IMPRESSION: Bilateral infiltrates in a predominantly perihilar distribution suggestive of pulmonary edema. Electronically Signed: Winston Singh MD at 22:40 EST , Service support ,
[2018-08-11 22:23] VITALS: BP 211/103; PULSE 75; RESP 16; O2SAT 96
[2018-08-11 23:12] LABS: Absolute Lymphocyte Count 1.17 X10^3/ul (0.83-4.51); Absolute Neutrophil Count 4.8 X10^3/uL (2.0-7.7); Basophil# 0.03 X10^3/uL; Basophil% 0.5 % (0-1); Eosinophil# 0.08 X10^3/uL; Eosinophils% 1.2 % (0-5); Hematocrit 30.8 % (37-47); Hemoglobin 9.9 g/dl (12.0-15.0); Lymphocyte # 1.17 X10^3/ul (4.0); Lymphocyte % 18.1 % (19-41); Mean Corp Hgb Conc 32.1 g/gl (32-36); Mean Corpuscular Hgb 30.4 pg (27.0-32.0); Mean Corpuscular Volume 94.5 fL (81-99); Mean Platelet Vol. 8.9 fl (6.2-12.0); Monocyte# 0.33 X10^3/uL; Monocyte% 5.1 % (0-10); Neutrophil # 4.83 X10^3/uL (2.7-7.7); Neutrophil % 74.9 % (47-70); Platelet Count 238 K/mm3 (150-450); RBC Distribution Width CV 13.5 % (11.6-14.6); RBC Distribution Width SD 46.4 fl (35.1-43.9); Red Blood Count 3.26 M/mm3 (4.2-5.4); White Blood Count 6.5 K/mm3 (4.4-11.0)
[2018-08-11 23:13] LABS: POSITIVE COUNT NO; POSITIVE DIFFERENTIAL NO; POSITIVE MORPHOLOGY NO
[2018-08-11 23:19] LABS: Prothrombin Time (Protime)PT. 13.1 SECONDS (11.7-14.9)
[2018-08-11 23:32] LABS: AST(SGOT) 27 U/L (15-37); Alanine Aminotransfer ALT/SGPT 60 U/L (13-56); Albumin, Serum 2.4 g/dL (3.2-5.0); Alkaline Phosphatase 123 U/L (45-117); Anion Gap 11 (5-15); BUN 23 mg/dL (7-18); BUN/Creat Ratio 25.8 RATIO (10-20); Bilirubin, Direct 0.09 mg/dL (0.00-0.30); Calcium,Total 8.2 mg/dL (8.5-10.1); Chloride 108 mmol/L (98-107); Creatinine, Serum 0.89 mg/dL (0.55-1.02); EST Glomerular Filtration Rate 77 mL/min (>60); Est Glom Filt Rate - Afr Amer 93 mL/min (>60); Estimated Creatinine Clearance 72.98 ml/min; Globulin 3.6 g/dL (2.2-4.2); Glucose 113 mg/dL (74-106); LDH 238 U/L (84-246); Potassium 4.2 mmol/L (3.5-5.1); Sodium Level 143 mmol/L (136-145)
[2018-08-11] MEDS: Labetalol 20 MG/4 ML Vial IV (23:35)
[2018-08-11] MEDS: Magnesium Sulfate 20 GM/500 ML BAG IV (23:36)
--- NOTE | 2018-08-11 23:36 | ED.RN ---
AT THIS TIME, DR BUCKLEY CHECKED A BASELINE DEEP TENDON REFLEX ON THIS PATIENT AND THIS PATIENT +3 ALL AROUND
[2018-08-11 23:41] VITALS: BP 201/99; PULSE 72; RESP 16; O2SAT 94
[2018-08-11 23:45] VITALS: BP 205/102; PULSE 70; RESP 18; O2SAT 93
[2018-08-12] VITALS (82 sets, daily range): BP systolic 137–211; BP diastolic 69–106; PULSE 70–94; RESP 16–25; TEMP 36.3–37; O2SAT 90–100; BMI 50.3
--- NOTE | 2018-08-12 01:35 | ED.RN ---
AT THIS TIME DR BUCKLEY CHECKED DEEP TENDON REFLEXES ON THIS PATIENT AND THEY REMAINED THE SAME PRIOR
--- NOTE | 2018-08-12 02:00 | NURSING ---
Dr Massey called and updated that pt is on unit, bp's 211/106 & 204/100. Orders to start hypertension order set with 1st line of labetalol 20mg IV then follow orders. Aware pt sob with activity and pulse ox 92%-95% states to observe pt as odered
[2018-08-12] MEDS: Lactated Ringers 1,000 ML 50 ML IV ×2 (02:17→20:12)
[2018-08-12] MEDS: hydrALAZINE 20 MG/ML Vial 10 MG IV ×3 (03:03→23:13)
--- NOTE | 2018-08-12 03:23 | NURSING ---
Dr Massey updated on patient BP and pulse oximetry 88-94% on room air. RN to contact Dr Gutierrez to be updated at this time per Dr Horn orders.
--- NOTE | 2018-08-12 03:31 | NURSING ---
pt pumping. 2L NC applied, sats 95% on rm air. Resp labored with exertion, Resp easy at this time.
--- NOTE | 2018-08-12 03:32 | NURSING ---
Plan of care discussed with pharmacy and Nursing picking supervisor Micaela. Ok to proceed with vasotec administations
--- NOTE | 2018-08-12 03:33 | NURSING ---
Addendum entered by Fatou Thomas 08/12/18 04:21: PRN hydralazine to be ordered 20 mg iv q6 hour for bp > 160/110 Original Note: Dr Hernandez notified via phone of BP and pulse ox 88-93%. Orders recieved to given hydralizine 10 mg now and vasotec 0.625mg IV x1. Hydralizine dosage increased at this time.
[2018-08-12] MEDS: Enalaprilat 1.25 MG/ML Vial 0.625 MG IV ×2 (04:06→20:31)
--- NOTE | 2018-08-12 05:38 | NURSING ---
Dr Massey updated via phone, aware pt is c/o headache, pt is sob with sats dropping to 85-88% on 2LNC with exertion that recovers in approx 1-2 min at rest, pt c/o SOB at times, lungs clear, no cough, good output. Reg diet, I.S., Motrin prn ordered, states to clarify with hospitalist about PO meds for BP control, and continue to monitor vitals and O2 sats.
[2018-08-12] MEDS: Ibuprofen 400 MG Tablet PO ×4 (06:00→20:11)
--- NOTE | 2018-08-12 06:13 | NURSING ---
Dr Card updated on patient BP now 150/70s. PRN iv vasotec ordered for BP >160/100 q 6 hr. Hospitalist to see patient this AM and address oral medication. RN unable to find CT results, only chest x-ray report following report of shortness of breath. No new orders at this time. RN to educate patient on risk of and vasotec. Continue to monitor patient at this time.
--- NOTE | 2018-08-12 07:52 | CT_ITS ---
STUDY: CTA CHEST REASON FOR EXAM: Female, 33 years old. Hypoxia. Chest pain. History of eclampsia and recent section. RADIATION DOSAGE (If Supplied By Facility): CTDIvol = ( 16.72 ) mGy, DLP = ( 691.36 ) mGycm TECHNIQUE: The examination was performed with the intravenous administration of 100mL ml of Isovue 370 contrast material. Post-processing of the angiographic images was performed, with multiplanar reformation and 3D reconstruction. Individualized dose optimization techniques were used for this CT. COMPARISON: None. FINDINGS: Normal enhancement of the main pulmonary artery and right and left pulmonary arteries. Normal enhancement of the bilateral peripheral pulmonary arteries. There is no demonstrated pulmonary embolism. Normal thoracic aorta and visualized great vessels. There is no demonstrated aortic dissection. Normal heart and pericardium. Normal mediastinum. Normal hilar regions. Normal visualized trachea and bronchi. The lungs are well expanded. There are small bilateral pleural effusions with bibasilar atelectasis and/or infiltrations. Patchy areas of the airspace disease in the upper lobes. Increased markings with areas of confluence in the perihilar regions bilaterally suggestive of mild degree of CHF. Normal chest wall structures. Normal osseous structures. Normal visualized upper abdomen. CT/CTA Chest W/WO Contrast IMPRESSION: Small bilateral pleural effusions with bibasilar atelectasis and/or infiltration. Nonspecific airspace disease in the upper lobes and perihilar regions. This may represent CHF or fluid overload. Electronically Signed: Sergey Bowers MD at 9:18 EST Tel [phone], Service support ,
--- NOTE | 2018-08-12 07:53 | VDLE_ITS ---
Reason For Study: SOB RIGHT LEFT GSV is normal. GSV is normal. CFV is compressible, spontaneous, phasic, CFV is compressible, spontaneous, phasic, competent and demonstrates normal competent, and demonstrates normal augmentation. augmentation. FV is compressible, spontaneous, phasic, FV is compressible, spontaneous, phasic, competent and demonstrates normal competent and demonstrates normal augmentation. augmentation. POP V is compressible, spontaneous, phasic, POP V is compressible, spontaneous, phasic, competent and demonstrates normal competent and demonstrates normal augmentation. augmentation. T/P Trunk is compressible. T/P Trunk is compressible. PTV is compressible. PTV is compressible. RT PerV is compressible. LT PerV is compressible. Procedure Exam performed portable in patient room. The exam was diagnostic. A preliminary report was called and/or faxed to the pt's RN. <> Interpretation Summary Deep veins of the lower extremities are bilaterally patent and compressible segmentally. There is no evidence of deep vein thrombosis on either side. Valvular competence appears intact within the proximal deep venous systems bilaterally. The greater saphenous veins appear bilaterally patent and compressible segmentally. Ordering Physician: Gavino Haddad Performed By: Jhoan Trujillo, RVT
--- NOTE | 2018-08-12 07:54 | CON.PCM_ITS ---
Problem List (1) CHF (congestive heart failure) Status: Acute (2) Hypertensive crisis Status: Acute (3) delivery delivered Status: Chronic (4) Chronic hypertension with superimposed preeclampsia Status: Chronic Reason for Consult Date of Consultation: 08/12/18 Reason for Consultation: Chest pain and shortness of breath History of Present Illness: The patient is a 33 year old F who underwent section on 08/03/18 who presented to the emergency department on 08/11/2018 with chest pain and shortness of breath. Patient was apparently diagnosed with preeclampsia prior to her delivery of note she did have hypertension is on labetalol 300 mg p.o. twice daily. Hospitalist service was consulted to assist with management of patient markedly elevated systolic blood pressure of greater than 200 on admission. On further questioning patient admits did admit to increasing swelling involving both lower extremities as well as dyspnea with minimal exertion Past Medical History Past Medical History (Chronic Problems): Chronic Problems Chronic hypertension with superimposed preeclampsia (Chronic) delivery delivered (Chronic) Previous section complicating , with delivery (Chronic) Allergies Sulfa (Sulfonamide Antibiotics) Adverse Reaction (Verified 08/12/18 02:31) Vomiting Home Medications: Ambulatory Orders Medication Instructions Recorded Docusate Sodium [Colace] 100 mg PO BID PRN PRN #60 capsule 08/03/18 Ibuprofen 600 mg PO 4X/DAY #30 tab 08/06/18 Oxycodone [Oxyir] 5 - 10 mg PO Q4H PRN PRN 7 Days 08/06/18 #28 tab Labetalol [Trandate (Beta José Miguel)] 600 mg PO TID 08/12/18 Sertraline HCl [Zoloft] 50 mg PO DAILY 08/12/18 Smoking Status: Never smoker - *Family History Maternal History Items: Hypertension Review of Systems Constitutional: Denies: Anorexia, Chills, Fever, Night Sweats, Weight Change HEENT: Denies: Head Aches, Sinus Congestion, Sinus Drainage Cardiovascular: Reports: Chest Pain, Edema. Denies: Orthopnea, Palpitations Respiratory: Reports: Shortness of Breath. Denies: Cough Gastrointestinal: Denies: Abdominal Pain, Hematemesis, Hematochezia, Nausea, Melena, Vomiting Genitourinary: Denies: Dysuria, Frequency, Hematuria, Urgency Musculoskeletal: Denies: Joint Pain, Joint Tenderness Skin: Denies: Rash Neurological: Denies: Focal weakness, Numbness, Tingling Psychiatric: Denies: Homicidal Ideations, Suicidal Ideations Hematologic/ Lymphatic: Denies: Easy Bruising, Easy Bleeding Patient Problems: Active and Suspected Problems CHF (congestive heart failure) (Acute) Hypertensive crisis (Acute) Objective: GENERAL: cooperative, dyspneic at rest HEENT: Atraumatic; moist oral mucosa EYES; Anicteric, Normal Conjunctiva NECK; supple, normal thyroid, no distended JVD. RESPIRATORY: Diminished to auscultation bilaterally, CARDIOVASCULAR: Regular S1 S2, no audible murmurs GI: soft, non-tender, normoactive bowel sounds, : No Renal angle tenderness; EXTREMITIES: Bilateral pedal edema edema, no clubbing, no cyanosis. MUSCULOSKELETAL: No Joint Tenderness; no muscle waisting NEURO: Awake; no lateralizing signs. SKIN: No Rash PSYCH; Normal affect - Physical Exam Vital Signs Temp Pulse Resp BP Pulse Ox 98.1 F 90 24 H 157/77 H 97 08/12/18 07:35 08/12/18 07:35 08/12/18 07:35 08/12/18 07:35 08/12/18 07:51 Oxygen Flow Rate (L/min) 2 Oxygen Delivery Method Nasal Cannula Weight: 128.82 kg Body Mass Index (BMI) 50.3 Intake and Output for Last 24 Hours 08/10/18 08/11/18 08/12/18 23:59 23:59 23:59 Intake Total 799 / 799 Output Total 700 / 700 Balance 99 / 99 Laboratory Tests Past 24 Hrs 08/11/18 08/11/18 08/11/18 23:03 23:03 23:03 WBC 6.5 RBC 3.26 L Hgb 9.9 L Hct 30.8 L MCV 94.5 MCH 30.4 MCHC 32.1 RDW 13.5 RDW Differential 46.4 H Plt Count 238 MPV 8.9 Immature Gran % (Auto) 0.200 Neut % (Auto) 74.9 H Lymph % (Auto) 18.1 L [place] % (Auto) 5.1 Eos % (Auto) 1.2 Baso % (Auto) 0.5 Absolute Neuts (auto) 4.8 Absolute Lymphs (auto) 1.17 Total Counted Not Reportable PT 13.1 INR 1.0 Sodium 143 Potassium 4.2 Chloride 108 H Carbon Dioxide 24.0 Anion Gap 11 BUN 23 H Creatinine 0.89 Estim Creat Clear Calc 72.98 Est GFR (MDRD) Af Amer 93 Est GFR (MDRD) Non-Af 77 BUN/Creatinine Ratio 25.8 H Glucose 113 H Calcium 8.2 L Total Bilirubin 0.30 Direct Bilirubin 0.09 AST 27 ALT 60 H Alkaline Phosphatase 123 H Lactate Dehydrogenase 238 Troponin I 0.020 Total Protein 6.0 L Albumin 2.4 L Globulin 3.6 Assessment/Plan All Active Problems 37 weeks gestation of (Acute) CHF (congestive heart failure) (Acute) Hypertensive crisis (Acute) Patient is a 33-year-old lady who underwent section on 08/03/2017 presented with chest pain, shortness of breath and markedly elevated blood pressure 1. Acute hypertensive crisis: Patient has been admitted to the OB unit. Patient did receive IV Vasotec as well as hydralazine and labetalol. Did resume her home labetalol dose at 100 mg p.o. 3 times daily, also added hydralazine 25 mg p.o. twice daily 2. Shortness of breath do suspect peripartum CHF 2D echo was ordered for EF assessment. Did rule out pulmonary embolism with CTA of the chest 3. Status post section on 08/03/2018 postop management deferred to primary service 4. Morbid obesity with BMI of 50.3 lifestyle modification including weight loss advised Code Visit Office Visits / Consults: [id number] IP Consult L5
--- NOTE | 2018-08-12 07:55 | NURSING ---
appeared labored with slight activity.
--- NOTE | 2018-08-12 08:04 | PCM.HP.BLA ---
History and Physical Date of Admission: 08/11/18 HPI: 33-year-old patient who delivered approximately a week ago by section with hypertension and -induced hypertension during labor presents with severe headache to the emergency room. PIH labs in the emergency room were normal. However, blood pressures were severely elevated requiring IV labetalol to control. Patient has been on p.o. labetalol 400 mg 3 times daily at home. Magnesium sulfate was started in the emergency room and patient brought to labor and delivery for continuation of magnesium sulfate with a presumed diagnosis of -induced hypertension. Past medical histort: patient is a non-smoker. Delivered approximately a week ago by and is breast-feeding Physical exam: HEENT normocephalic, no thyromegaly; cardiovascular shows regular rate and rhythm without murmurs or gallops; respiratory clear to auscultation x2 with no rales wheezing or rhonchi; abdomen is without distention; extremities are with 2+ pitting edema and 1-2+ clonus. Labs: No evidence of -induced hypertension. Cardiac labs okay. O2 sats 94-95% on room air. 97-98% on 2 L O2. Impression and plan: Likely -induced hypertension. Doppler studies ordered. Continuing magnesium sulfate at 2 g an hour, IV labetalol. Consider ordering cardiac echo to rule out cardiomyopathy if condition does not improve. Continuing to monitor closely. Appreciate hospitalist input.
[2018-08-12] MEDS: Labetalol 100 MG Tablet PO ×3 (08:20→21:37)
[2018-08-12] MEDS: hydrALAZINE 25 MG Tablet PO ×2 (08:20→14:43)
[2018-08-12] MEDS: Magnesium Sulfate 20 GM/500 ML BAG IV ×3 (08:23→20:13)
--- NOTE | 2018-08-12 08:40 | ED.VISSUMM ---
- ER Visit Summary Date of Service: 08/12/18 Chief Complaint: Chest pain shortness of breath History of Present Illness: The patient is a 33 F presenting for evaluation secondary chest pain shortness of breath. Patient is couple of days from a section on 08/03. Patient states that her was complicated by preeclampsia. Patient states that she since delivery has been on 600 mg of labetalol 3 times a day. Patient reports that today she started to have chest pain, and since her discharge she is actually had shortness of breath and edema. Patient states that chest pain is worse with breathing, and is not associated with any sort of infectious signs or symptoms such as fever or cough. Patient denies any visual changes numbness weakness lightheadedness or seizure activity. Review of systems otherwise negative. Physical Examination: Blood pressure notable for a elevated pressure of 234/127. Well-nourished female no acute distress. Head normocephalic. Moist mucous membranes. No JVD. PRL, EOMI no evidence of changes on endoscopy. Heart regular rate and rhythm, lungs clear, abdomen soft nontender. Peripheral edema +1 and symmetric. Skin normal color no rash. Patient was alert and oriented. Normal strength and sensation. Patellar reflexes are 3+ and bilaterally symmetric, Achilles are 2 some bilaterally symmetric. Test Results: EKG shows sinus rate of [address] segments normal T waves. CBC chemistry liver LDH and troponin studies are found to be unremarkable. Emergency Department Course and Treatment: Patient presented for evaluation secondary to elevated blood pressure. Patient is in the early stage and I believe this to be preeclampsia. Patient was given labetalol in the emergency department. I discussed patient's case with PATCH FINISHER on-call Dr. Massey and we are in agreement that the patient should be started on a magnesium drip. Ultimately I was able to bring the patient's blood pressure down to 184/100. Patient will be [facility] at this time. Disposition: Admission Impression: 1. Preeclampsia, severe Critical care time 40 minutes This note was generated with [employer] dictation software. It may contain incorrect words, spelling, and punctuation that were not noted in review of the chart prior to signing ED Disposition - Plan for ED Patient: Disposition: Acute Care Hospital [facility] Chief Complaint: Chest Pain
--- NOTE | 2018-08-12 08:44 | ED.DCSUM_ITS ---
- ER Visit Summary Date of Service: 08/12/18 Chief Complaint: Chest pain shortness of breath History of Present Illness: The patient is a 33 F presenting for evaluation secondary chest pain shortness of breath. Patient is couple of days from a section on 08/03. Patient states that her was complicated by preeclampsia. Patient states that she since delivery has been on 600 mg of labetalol 3 times a day. Patient reports that today she started to have chest pain, and since her discharge she is actually had shortness of breath and edema. Patient states that chest pain is worse with breathing, and is not associated with any sort of infectious signs or symptoms such as fever or cough. Patient denies any visual changes numbness weakness lightheadedness or seizure activity. Review of systems otherwise negative. Physical Examination: Blood pressure notable for a elevated pressure of 234/127. Well-nourished female no acute distress. Head normocephalic. Moist mucous membranes. No JVD. PRL, EOMI no evidence of changes on endoscopy. Heart re gular rate and rhythm, lungs clear, abdomen soft nontender. Peripheral edema +1 and symmetric. Skin normal color no rash. Patient was alert and oriented. Normal strength and sensation. Patellar reflexes are 3+ and bilaterally symmetric, Achilles are 2 some bilaterally symmetric. Test Results: EKG shows sinus rate of [address] segments normal T waves. CBC chemistry liver LDH and troponin studies are found to be unremarkable. Emergency Department Course and Treatment: Patient presented for evaluation secondary to elevated blood pressure. Patient is in the early stage and I believe this to be preeclampsia. Patient was given labetalol in the emergency department. I discussed patient's case with BUILDING CONSTRUCTION SUPERINTENDENT on-call Dr. Massey and we are in agreement that the patient should be started on a magnesium drip. Ultimately I was able to bring the patient's blood pressure down to 184/100. [facility] at this [facility]. Disposition: Admission Impression: 1. Preeclampsia, severe Critical care time 40 minutes This note was generated with [employer] dictation software. It may contain incorrect words, spelling, and punctuation that were not noted in review of the chart prior to signing ED Disposition - Plan for ED Patient: Disposition: Acute Care Hospital [facility] Chief Complaint: Chest Pain
--- NOTE | 2018-08-12 08:49 | ECHOD_ITS ---
Reason For Study: CHF Procedure This was a 2D Doppler, Color Flow transthoracic echocardiogram. Exam performed portable in patient room. Left Ventricle Normal size and thickness. The estimated ejection fraction is 65 %. Normal diastology for age. No regional wall motion abnormalities noted. Right Ventricle Mildly dilated right ventricle. Normal systolic function. Atria The left atrium is mildly enlarged. Normal right atrium. Normal atrial septum. Mitral Valve The mitral valve is structurally normal. No prolapse or stenosis seen. Mild (1+) mitral valve insufficiency. Tricuspid Valve Normal tricuspid valve. Mild (1+) tricuspid valve insufficiency. Right ventricular systolic pressure estimated to be 38 mmHg. Mild pulmonary hypertension. Aortic Valve Trisinus/trileaflet aortic valve. Normal aortic valve. Pulmonic Valve Normal pulmonic valve. Great Vessels Normal aortic root. Normal arch. Normal inferior vena cava. Inferior vena cava collapse with sniff. Pericardium/Pleural No pericardial effusion. MMode/2D Measurements & Calculations LVIDd: 5.0 cm IVSd: 1.2 cm Ao root diam: 3.3 cm LVIDs: 3.2 cm LVPWd: 1.3 cm LA dimension: 4.4 cm RVDd: 4.0 cm FS: 35.7 % LAV(MOD-bp): 73.0 ml LVAd ap4: 38.0 cm2 SV(MOD-sp4): 79.0 ml LAV(MOD-bp) Indexed: 32.5 ml/m2 EDV(MOD-sp4): 135.4 ml LAV(MOD-sp2): 79.1 ml EDV(sp4-el): 141.0 ml LAV(MOD-sp4): 65.9 ml LVAs ap4: 21.9 cm2 ESV(MOD-sp4): 56.4 ml ESV(sp4-el): 58.5 ml EF(MOD-sp4): 58.4 % EF(sp4-el): 58.5 % SV(sp4-el): 82.5 ml LA A4 area: 21.8 cm2 RA A4 area: 19.6 cm2 Time Measurements MV dec time: 0.23 sec Doppler Measurements & Calculations MV E max chuy: 135.5 cm/sec Lat Peak E' Chuy: 11.1 cm/sec Med Peak E' Chuy: 8.5 cm/sec MV A max chuy: 68.9 cm/sec E/E' lat: 12.3 E/E' med: 16.0 MV E/A: 2.0 Ao V2 max: 181.3 cm/sec LV V1 max: 134.9 cm/sec PA V2 max: 137.5 cm/sec Ao max P.2 mmHg LV V1 max P.3 mmHg PI end-d chuy: 106.6 cm/sec TR max chuy: 284.8 cm/sec TR max P.4 mmHg Interpretation Summary The estimated ejection fraction is 65 %. Normal diastology for age. The left atrium is mildly enlarged. Normal size and thickness. Mildly dilated right ventricle. Mild (1+) mitral valve insufficiency. Mild (1+) tricuspid valve insufficiency. Right ventricular systolic pressure estimated to be 38 mmHg. Mild pulmonary hypertension. Compared to echo report dated 07/20/2011, LV function has remained the same, but RVSP has increased from 24 to 38 mm Hg. Ordering Physician: Gavino Haddad Referring Physician: MEGGAN MOMIN Performed By: Noni Toro RDCS
--- NOTE | 2018-08-12 08:49 | NURSING ---
0709 dr delgado into see pt states ok for pt to be off of mag for CT scan; pt to CT
--- NOTE | 2018-08-12 09:58 | NURSING ---
0900-Patient back from CT. Patient back to bed and IV Magnesium restarted.
--- NOTE | 2018-08-12 10:24 | NURSING ---
1015- Ultrasound in to do Vascular U/S of L.
[2018-08-12] MEDS: Furosemide 40 MG/4 ML Vial IV ×2 (12:56→22:00)
--- NOTE | 2018-08-12 13:17 | NURSING ---
6064- Dr Haddad paged to call for to update on blood pressure reading
--- NOTE | 2018-08-12 13:18 | NURSING ---
1315- U/S here to perform Echo of heart
--- NOTE | 2018-08-12 14:11 | NURSING ---
1410- Dr Cortez in to discuss POC. Plan is to continue lasix and magnesium until tomorrow. awaiting Echo results to further decide course of treatment.
--- NOTE | 2018-08-12 18:25 | NURSING ---
182-Dr Haddad paged via vegetable harvest machine operator to inform him of most current BPs.
--- NOTE | 2018-08-12 18:36 | NURSING ---
183- no return call from Dr Haddad, called nylon machine operator again to have hospitalist paged to report bp readings.
--- NOTE | 2018-08-12 19:05 | NURSING ---
spoke with hospitalist viewed and discussed medication regime; states to toggle between hydralizine and vasotec to keep Sbp at or under 160
--- NOTE | 2018-08-12 20:36 | NURSING ---
@ 2031 pt placed on hospital monitor before administration of enalaprilat IV. hospital monitor at bedside
[2018-08-12] MEDS: hydrALAZINE 50 MG Tablet PO (21:37)
--- NOTE | 2018-08-12 22:40 | NURSING ---
IBCLC round done. Patient was able to nurse baby earlier today while he was here with her. Plan to pump every 3 hours throughout night. Mother reports being able to nurse her last baby well and was even able to donate milk to the milk bank due to her oversupply. Discussed possibility of lasix to affect . Mother states she had bad PP depression after a 16 week loss. States she had to go back to work shortly after her procedure and loss and it was very difficult for her but states so far this time she has felt good emotionally even with everything she is going through physically. Introduced hospital grade pump to mother so she could pump effectively while away from baby.
[2018-08-13] VITALS (38 sets, daily range): BP systolic 129–171; BP diastolic 63–85; PULSE 74–100; RESP 16–22; TEMP 36.2–37.3; O2SAT 93–98
--- NOTE | 2018-08-13 02:38 | SLEEP ---
Pt's home CPAP unit set up with 2 lpm bled inline.
[2018-08-13] MEDS: Furosemide 40 MG/4 ML Vial IV ×3 (06:02→21:56)
[2018-08-13] MEDS: hydrALAZINE 50 MG Tablet PO ×4 (06:02→23:51)
[2018-08-13] MEDS: Labetalol 100 MG Tablet PO (06:02)
[2018-08-13 06:52] LABS: Hemoglobin 10.8 g/dl (12.0-15.0); Mean Corp Hgb Conc 31.8 g/gl (32-36); Mean Corpuscular Hgb 30.2 pg (27.0-32.0); Mean Platelet Vol. 8.7 fl (6.2-12.0); Platelet Count 271 K/mm3 (150-450); RBC Distribution Width CV 14.1 % (11.6-14.6); RBC Distribution Width SD 48.5 fl (35.1-43.9); Red Blood Count 3.58 M/mm3 (4.2-5.4)
[2018-08-13 06:53] LABS: Scan Indicated on CBC? Y/N NO
[2018-08-13 07:21] LABS: Anion Gap 12 (5-15); BUN 16 mg/dL (7-18); BUN/Creat Ratio 18.6 RATIO (10-20); Calcium,Total 6.4 mg/dL (8.5-10.1); Chloride 100 mmol/L (98-107); Creatinine, Serum 0.86 mg/dL (0.55-1.02); EST Glomerular Filtration Rate 80 mL/min (>60); Est Glom Filt Rate - Afr Amer 97 mL/min (>60); Estimated Creatinine Clearance 75.53 ml/min; Glucose 106 mg/dL (74-106); Magnesium 7.2 mg/dL (1.6-2.6); Potassium 3.8 mmol/L (3.5-5.1); Sodium Level 139 mmol/L (136-145)
[2018-08-13] MEDS: Magnesium Sulfate 20 GM/500 ML BAG IV (07:29)
--- NOTE | 2018-08-13 07:54 | PCM.PN.HOSP ---
Patient Problems: Active and Suspected Problems CHF (congestive heart failure) (Acute) Hypertensive crisis (Acute) Subjective: Seen responded to Lasix with almost 5 L of urine output. Blood pressure still remains elevated with systolic in the 170s. Adjustment was made to patient antihypertensive regimen. Review of diagnostic data significant for calcium of 6.4 replacement initiated Objective: GENERAL: cooperative, HEENT: Atraumatic; moist oral mucosa EYES; Anicteric, Normal Conjunctiva NECK; supple, normal thyroid, RESPIRATORY: Diminished to auscultation bilaterally, CARDIOVASCULAR: Regular S1 S2, no audible murmurs GI: soft, non-tender, normoactive bowel sounds, : No Renal angle tenderness; EXTREMITIES: Bilateral pedal edema edema, MUSCULOSKELETAL: No Joint Tenderness; no muscle waisting NEURO: Awake; no lateralizing signs. SKIN: No Rash PSYCH; Normal affect Vitals/I&O's: Vital Signs Temp Pulse Resp BP Pulse Ox 98.4 F 76 18 132/67 H 96 08/13/18 07:00 08/13/18 07:00 08/13/18 07:00 08/13/18 07:00 08/13/18 07:00 Oxygen Flow Rate (L/min) 2 Oxygen Delivery Method Room Air Weight: 128.82 kg Body Mass Index (BMI) 50.3 Intake and Output for Last 24 Hours 08/11/18 08/12/18 08/13/18 23:59 23:59 23:59 Intake Total 2985.5 / 2985.5 952 / 952 Output Total 6550 / 6550 1825 / 1825 Balance -3564.5 / -3564.5 -873 / -873 Laboratory Results 08/13/18 06:46: WBC 6.0, RBC 3.58 L, Hgb 10.8 L, Hct 34.0 L, MCV 95.0, MCH 30.2, MCHC 31.8 L, RDW 14.1, RDW Differential 48.5 H, Plt Count 271, MPV 8.7 08/13/18 06:46: Sodium 139, Potassium 3.8, Chloride 100, Carbon Dioxide 27.0, Anion Gap 12, BUN 16, Creatinine 0.86, Estim Creat Clear Calc 75.53, Est GFR (MDRD) Af Amer 97, Est GFR (MDRD) Non-Af 80, BUN/Creatinine Ratio 18.6, Glucose 106, Calcium 6.4 L*, Magnesium 7.2 H* Current Medications Calcium Gluconate () 1 gm IV X1 PRN PRN Reason: MAGNESIUM TOXICITY Calcium/Vitamin D (Os-Fidencio 500mg + D) 1 tablet PO TIDCM [facility] Enalaprilat (Vasotec) 0.625 mg IV Q6H PRN PRN PRN Reason: BLOOD PRESSURE Last Admin: 08/12/18 20:31 Dose: 0.625 mg Furosemide (Lasix) 40 mg IV Q8 [facility] Last Admin: 08/13/18 06:02 Dose: 40 mg Hydralazine HCl (Apresoline Iv) 10 mg IV Q4H PRN PRN PRN Reason: SBP > or = 160 Last Admin: 08/12/18 23:13 Dose: 10 mg Hydralazine HCl (Apresoline) 50 mg PO 4X/DAY [facility] Magnesium Sulfate (20gm/500ml) 20 gm in 500 mls @ 50 mls/hr IV .Q10H [facility] Last Admin: 08/13/18 07:29 Dose: 50 mls/hr Lactated Ringer's () 1,000 mls @ 50 mls/hr IV .Q20H [facility] Last Admin: 08/12/18 20:12 Dose: 50 mls/hr Ibuprofen (Motrin) 400 mg PO Q4H PRN PRN PRN Reason: MILD PAIN (1-310) Last Admin: 08/12/18 20:11 Dose: 400 mg Labetalol HCl (Trandate) 200 mg PO TID [facility] Midazolam HCl (Versed) 2 mg IV Q5M PRN PRN Reason: SEIZURE Potassium Chloride (K-Dur) 20 meq PO BIDCM [facility] Sertraline HCl (Zoloft) 50 mg PO DAILY [facility] Medical Necessity - Tobacco Use Smoking Status: Never smoker Assessment/Plan All Active Problems 37 weeks gestation of (Acute) CHF (congestive heart failure) (Acute) Hypertensive crisis (Acute) Patient is a 33-year-old lady who underwent section on 08/03/2017 presented with chest pain, shortness of breath and markedly elevated blood pressure 1. Acute hypertensive crisis: Patient has been admitted to the OB unit. Patient did receive IV Vasotec as well as hydralazine and labetalol. Did resume her home labetalol dose at 100 mg p.o. 3 times daily, also added hydralazine 25 mg p.o. twice daily with patient blood pressure still being markedly elevated adjusted patient antihypertensive medications by increasing labetalol to 200 mg p.o. 3 times daily and hydralazine 50 mg p.o. 4 times daily 2. Acute diastolic congestive heart failure. EF demonstrated preserved ejection fraction of 65%. Patient responded to Lasix. CTA of the chest was negative for PE 3. Status post section on 08/03/2018 postop management deferred to primary service 4. Morbid obesity with BMI of 50.3 lifestyle modification including weight loss advised 5. Hypocalcemia correction initiated 6. DVT prophylaxis; SC heparin Code Visit Inpatient E&M: 99209 Subs Hosp L3
--- NOTE | 2018-08-13 07:57 | PN_ITS ---
Patient Problems: Active and Suspected Problems CHF (congestive heart failure) (Acute) Hypertensive crisis (Acute) Subjective: Seen responded to Lasix with almost 5 L of urine output. Blood pressure still remains elevated with systolic in the 170s. Adjustment was made to patient antihypertensive regimen. Review of diagnostic data significant for calcium of 6.4 replacement initiated Objective: GENERAL: cooperative, HEENT: Atraumatic; moist oral mucosa EYES; Anicteric, Normal Conjunctiva NECK; supple, normal thyroid, RESPIRATORY: Diminished to auscultation bilaterally, CARDIOVASCULAR: Regular S1 S2, no audible murmurs GI: soft, non-tender, normoactive bowel sounds, : No Renal angle tenderness; EXTREMITIES: Bilateral pedal edema edema, MUSCULOSKELETAL: No Joint Tenderness; no muscle waisting NEURO: Awake; no lateralizing signs. SKIN: No Rash PSYCH; Normal affect Vitals/I&O's: Vital Signs Temp Pulse Resp BP Pulse Ox 98.4 F 76 18 132/67 H 96 08/13/18 07:00 08/13/18 07:00 08/13/18 07:00 08/13/18 07:00 08/13/18 07:00 Oxygen Flow Rate (L/min) 2 Oxygen Delivery Method Room Air Weight: 128.82 kg Body Mass Index (BMI) 50.3 Intake and Output for Last 24 Hours 08/11/18 08/12/18 08/13/18 23:59 23:59 23:59 Intake Total 2985.5 / 2985.5 952 / 952 Output Total 6550 / 6550 1825 / 1825 Balance -3564.5 / -3564.5 -873 / -873 Laboratory Results 08/13/18 06:46: WBC 6.0, RBC 3.58 L, Hgb 10.8 L, Hct 34.0 L, MCV 95.0, MCH 30.2, MCHC 31.8 L, RDW 14.1, RDW Differential 48.5 H, Plt Count 271, MPV 8.7 08/13/18 06:46: Sodium 139, Potassium 3.8, Chloride 100, Carbon Dioxide 27.0, Anion Gap 12, BUN 16, Creatinine 0.86, Estim Creat Clear Calc 75.53, Est GFR (MDRD) Af Amer 97, Est GFR (MDRD) Non-Af 80, BUN/Creatinine Ratio 18.6, Glucose 106, Calcium 6.4 L*, Magnesium 7.2 H* Current Medications Calcium Gluconate () 1 gm IV X1 PRN PRN Reason: MAGNESIUM TOXICITY Calcium/Vitamin D (Os-Fidencio 500mg + D) 1 tablet PO TIDCM [facility] Enalaprilat (Vasotec) 0.625 mg IV Q6H PRN PRN PRN Reason: BLOOD PRESSURE Last Admin: 08/12/18 20:31 Dose: 0.625 mg Furosemide (Lasix) 40 mg IV Q8 [facility] Last Admin: 08/13/18 06:02 Dose: 40 mg Hydralazine HCl (Apresoline Iv) 10 mg IV Q4H PRN PRN PRN Reason: SBP > or = 160 Last Admin: 08/12/18 23:13 Dose: 10 mg Hydralazine HCl (Apresoline) 50 mg PO 4X/DAY [facility] Magnesium Sulfate (20gm/500ml) 20 gm in 500 mls @ 50 mls/hr IV .Q10H [facility] Last Admin: 08/13/18 07:29 Dose: 50 mls/hr Lactated Ringer's () 1,000 mls @ 50 mls/hr IV .Q20H [facility] Last Admin: 08/12/18 20:12 Dose: 50 mls/hr Ibuprofen (Motrin) 400 mg PO Q4H PRN PRN PRN Reason: MILD PAIN (1-310) Last Admin: 08/12/18 20:11 Dose: 400 mg Labetalol HCl (Trandate) 200 mg PO TID [facility] Midazolam HCl (Versed) 2 mg IV Q5M PRN PRN Reason: SEIZURE Potassium Chloride (K-Dur) 20 meq PO BIDCM [facility] Sertraline HCl (Zoloft) 50 mg PO DAILY [facility] Medical Necessity - Tobacco Use Smoking Status: Never smoker Assessment/Plan All Active Problems 37 weeks gestation of (Acute) CHF (congestive heart failure) (Acute) Hypertensive crisis (Acute) Patient is a 33-year-old lady who underwent section on 08/03/2017 presented with chest pain, shortness of breath and markedly elevated blood pressure 1. Acute hypertensive crisis: Patient has been admitted to the OB unit. Patient did receive IV Vasotec as well as hydralazine and labetalol. Did resume her home labetalol dose at 100 mg p.o. 3 times daily, also added hydralazine 25 mg p.o. twice daily with patient blood pressure still being markedly elevated adjusted patient antihypertensive medications by increasing labetalol to 200 mg p.o. 3 times daily and hydralazine 50 mg p.o. 4 times daily 2. Acute diastolic congestive heart failure. EF demonstrated preserved ejection fraction of 65%. Patient responded to Lasix. CTA of the chest was negative for PE 3. Status post section on 08/03/2018 postop management deferred to primary service 4. Morbid obesity with BMI of 50.3 lifestyle modification including weight loss advised 5. Hypocalcemia correction initiated 6. DVT prophylaxis; SC heparin Code Visit Inpatient E&M: 46996 Subs Hosp L3
--- NOTE | 2018-08-13 08:28 | PCM.PN.OB ---
Patient Problems: Active and Suspected Problems CHF (congestive heart failure) (Acute) Hypertensive crisis (Acute) Subjective: Having some blurry vision this morning. Some nausea. Headache mild. Breathing well. Objective: Afeb BPs 132-169/67-80 HR 88-109 O2 sats 96-97 now 97% on room air. Uses CPAP at night. urine output over 6500 since yesterday - Physical Exam General: Alert, Oriented x3, Cooperative, No apparent distress Cardiovascular: Regular rate, Regular Rhythm Abdomen: Soft, Non Tender, Non-Distended, - - Incision healing well Extremities: Edema - less Skin: No rashes Psych/Mental Status: Normal Affect Vital Signs Temp Pulse Resp BP Pulse Ox 98.4 F 76 18 132/67 H 96 08/13/18 07:00 08/13/18 07:00 08/13/18 07:00 08/13/18 07:00 08/13/18 07:00 Oxygen Flow Rate (L/min) 2 Oxygen Delivery Method Room Air Weight: 284 lb Body Mass Index (BMI) 50.3 Intake and Output for Last 24 Hours 08/11/18 08/12/18 08/13/18 23:59 23:59 23:59 Intake Total 2985.5 / 2985.5 952 / 952 Output Total 6550 / 6550 1825 / 1825 Balance -3564.5 / -3564.5 -873 / -873 Laboratory Tests Past 24 Hrs 08/13/18 08/13/18 06:46 06:46 WBC 6.0 RBC 3.58 L Hgb 10.8 L Hct 34.0 L MCV 95.0 MCH 30.2 MCHC 31.8 L RDW 14.1 RDW Differential 48.5 H Plt Count 271 MPV 8.7 Sodium 139 Potassium 3.8 Chloride 100 Carbon Dioxide 27.0 Anion Gap 12 BUN 16 Creatinine 0.86 Estim Creat Clear Calc 75.53 Est GFR (MDRD) Af Amer 97 Est GFR (MDRD) Non-Af 80 BUN/Creatinine Ratio 18.6 Glucose 106 Calcium 6.4 L* Magnesium 7.2 H* Medical Necessity - Tobacco Use Smoking Status: Never smoker Assessment/Plan All Active Problems 37 weeks gestation of (Acute) CHF (congestive heart failure) (Acute) Hypertensive crisis (Acute) CHF--responded well to IV lasix with less labored breathing. Echo with preserved EF. Could consider PO diuretic Hypertensive crisis--Over night required two IV doses of Vasotec and one IV dose of hydralazine. PO meds increased today. Will observe for need for rescue IV meds. If stabilized could consider discharge. Consider PO diuretic. Preeclampsia--labs stable except calcium. Magnesium sulfate prophylaxis discontinued. No overt signs of preeclampsia. Continue observation for now. Post operative repeat C/S--Doing well from postoperative healing standpoint.
--- NOTE | 2018-08-13 08:31 | NURSING ---
Dr. Cortez called and updated on Mag level 7.2 per Soila TRIVEDI. Orders to discontinue Mag at this time, states he will be in to unit.
[2018-08-13] MEDS: Calcium Carb/Vitamin D 1 TABLET Tablet PO ×3 (09:05→17:51)
[2018-08-13] MEDS: Sertraline 50 MG Tablet PO (10:00)
[2018-08-13] MEDS: Docusate Sodium 100 MG Capsule PO ×2 (10:00→21:55)
--- NOTE | 2018-08-13 12:03 | NURSING ---
This nursing home social worker reviewed the charting completed by Camila Jay and it is complete.
[2018-08-13] MEDS: Labetalol 200 MG Tablet PO ×2 (13:32→21:58)
[2018-08-13] MEDS: Heparin Injection (Vial) 5,000 UNIT/ML VIAL 5000 UNIT SC ×2 (13:33→21:56)
[2018-08-13] MEDS: hydrALAZINE 20 MG/ML Vial 10 MG IV (21:12)
--- NOTE | 2018-08-13 22:04 | NURSING ---
Dr Cortez updated on most recent BP 161/78 Iv hydralazine given patient due for oral medication at 2200. Orders recieved to monitor patient q 4 hours.
[2018-08-13] MEDS: Lactated Ringers 1,000 ML 50 ML IV (22:15)
[2018-08-14 03:40] VITALS: BP 157/76; PULSE 77; RESP 20; TEMP 37.2
[2018-08-14] MEDS: Labetalol 200 MG Tablet PO (06:12)
[2018-08-14 06:13] VITALS: BP 142/80; PULSE 80
[2018-08-14] MEDS: hydrALAZINE 50 MG Tablet PO ×2 (06:13→10:52)
[2018-08-14] MEDS: Furosemide 40 MG/4 ML Vial IV (06:15)
[2018-08-14] MEDS: Ibuprofen 400 MG Tablet PO (06:26)
[2018-08-14] MEDS: Heparin Injection (Vial) 5,000 UNIT/ML VIAL 5000 UNIT SC (06:31)
[2018-08-14 06:47] LABS: Hematocrit 34.9 % (37-47); Hemoglobin 11.1 g/dl (12.0-15.0); Mean Corp Hgb Conc 31.8 g/gl (32-36); Mean Corpuscular Hgb 30.8 pg (27.0-32.0); Mean Corpuscular Volume 96.9 fL (81-99); Mean Platelet Vol. 8.9 fl (6.2-12.0); Platelet Count 336 K/mm3 (150-450); RBC Distribution Width CV 13.9 % (11.6-14.6); RBC Distribution Width SD 46.8 fl (35.1-43.9); White Blood Count 5.5 K/mm3 (4.4-11.0)
[2018-08-14 06:57] LABS: Scan Indicated on CBC? Y/N NO
--- NOTE | 2018-08-14 07:12 | PCM.PN.HOSP ---
Patient Problems: Active and Suspected Problems CHF (congestive heart failure) (Acute) Hypertensive crisis (Acute) Subjective: Patient seen blood pressure control significantly improved. Did discuss with patient regarding her antihypertensive management when discharged. Plan is to prescribe labetalol 200 mg p.o. 3 times daily, hydralazine 50 mg p.o. 3 times daily, as well as HCTZ 25 mg daily and patient to follow-up with PCP within a week of her discharge for subsequent adjustment if needed Objective: GENERAL: cooperative, HEENT: Atraumatic; moist oral mucosa EYES; Anicteric, Normal Conjunctiva NECK; supple, normal thyroid, RESPIRATORY: Diminished to auscultation bilaterally, CARDIOVASCULAR: Regular S1 S2, no audible murmurs GI: soft, non-tender, normoactive bowel sounds, : No Renal angle tenderness; EXTREMITIES: Bilateral pedal edema edema, MUSCULOSKELETAL: No Joint Tenderness; no muscle waisting NEURO: Awake; no lateralizing signs. SKIN: No Rash PSYCH; Normal affect Vitals/I&O's: Vital Signs Temp Pulse Resp BP Pulse Ox 99 F 80 20 H 142/80 H 98 08/14/18 03:40 08/14/18 06:13 08/14/18 03:40 08/14/18 06:13 08/13/18 22:36 Oxygen Flow Rate (L/min) 2 Oxygen Delivery Method Room Air Weight: 128.82 kg Body Mass Index (BMI) 50.3 Intake and Output for Last 24 Hours 08/12/18 08/13/18 08/14/18 23:59 23:59 23:59 Intake Total 2985.5 / 2985.5 2955 / 2955 Output Total 6550 / 6550 4375 / 4375 600 / 600 Balance -3564.5 / -3564.5 -1420 / -1420 -600 / -600 Laboratory Results 08/13/18 06:46: Sodium 139, Potassium 3.8, Chloride 100, Carbon Dioxide 27.0, Anion Gap 12, BUN 16, Creatinine 0.86, Estim Creat Clear Calc 75.53, Est GFR (MDRD) Af Amer 97, Est GFR (MDRD) Non-Af 80, BUN/Creatinine Ratio 18.6, Glucose 106, Calcium 6.4 L*, Magnesium 7.2 H* 08/14/18 06:35: WBC 5.5, RBC 3.60 L, Hgb 11.1 L, Hct 34.9 L, MCV 96.9, MCH 30.8, MCHC 31.8 L, RDW 13.9, RDW Differential 46.8 H, Plt Count 336, MPV 8.9 08/14/18 06:35: Sodium Pending, Potassium Pending, Chloride Pending, Carbon Dioxide Pending, Anion Gap Pending, BUN Pending, Creatinine Pending, Est GFR (MDRD) Af Amer Pending, Est GFR (MDRD) Non-Af Pending, BUN/Creatinine Ratio Pending, Glucose Pending, Calcium Pending Current Medications Calcium Gluconate () 1 gm IV X1 PRN PRN Reason: MAGNESIUM TOXICITY Calcium/Vitamin D (Os-Fidencio 500mg + D) 1 tablet PO TIDCM [facility] Last Admin: 08/13/18 17:51 Dose: 1 tablet Docusate Sodium (Colace) 100 mg PO BID [facility] Last Admin: 08/13/18 21:55 Dose: 100 mg Enalaprilat (Vasotec) 0.625 mg IV Q6H PRN PRN PRN Reason: BLOOD PRESSURE Last Admin: 08/12/18 20:31 Dose: 0.625 mg Furosemide (Lasix) 40 mg IV Q8 [facility] Last Admin: 08/14/18 06:15 Dose: 40 mg Heparin Sodium (Porcine) (Heparin Na) 5,000 unit SC Q8 [facility] Last Admin: 08/14/18 06:31 Dose: 5,000 unit Hydralazine HCl (Apresoline Iv) 10 mg IV Q4H PRN PRN PRN Reason: SBP > or = 160 Last Admin: 08/13/18 21:12 Dose: 10 mg Hydralazine HCl (Apresoline) 50 mg PO Q6 [facility] Last Admin: 08/14/18 06:13 Dose: 50 mg Lactated Ringer's () 1,000 mls @ 50 mls/hr IV .Q20H [facility] Last Admin: 08/13/18 22:15 Dose: 50 mls/hr Ibuprofen (Motrin) 400 mg PO Q4H PRN PRN PRN Reason: MILD PAIN (1-3/10) Last Admin: 08/14/18 06:26 Dose: 400 mg Labetalol HCl (Trandate) 200 mg PO TID [facility] Last Admin: 08/14/18 06:12 Dose: 200 mg Midazolam HCl (Versed) 2 mg IV Q5M PRN PRN Reason: SEIZURE Potassium Chloride (K-Dur) 20 meq PO BIDCM [facility] Last Admin: 08/13/18 17:51 Dose: 20 meq Sertraline HCl (Zoloft) 50 mg PO DAILY [facility] Last Admin: 08/13/18 10:00 Dose: 50 mg Medical Necessity - Tobacco Use Smoking Status: Never smoker Assessment/Plan All Active Problems 37 weeks gestation of (Acute) CHF (congestive heart failure) (Acute) Hypertensive crisis (Acute) Patient is a 33-year-old lady who underwent section on 08/03/2017 presented with chest pain, shortness of breath and markedly elevated blood pressure 1. Acute hypertensive crisis: Patient has been admitted to the OB unit. Patient did receive IV Vasotec as well as hydralazine and labetalol. Did resume her home labetalol dose at 100 mg p.o. 3 times daily, also added hydralazine 25 mg p.o. twice daily with patient blood pressure still being markedly elevated adjusted patient antihypertensive medications by increasing labetalol to 200 mg p.o. 3 times daily and hydralazine 50 mg p.o. 4 times daily. Did discuss with patient regarding her antihypertensive management when discharged. Plan is to prescribe labetalol 200 mg p.o. 3 times daily, hydralazine 50 mg p.o. 3 times daily, as well as HCTZ 25 mg daily and patient to follow-up with PCP within a week of her discharge for subsequent adjustment if needed 2. Acute diastolic congestive heart failure. EF demonstrated preserved ejection fraction of 65%. Patient responded to Lasix. CTA of the chest was negative for PE 3. Status post section on 08/03/2018 postop management deferred to primary service 4. Morbid obesity with BMI of 50.3 lifestyle modification including weight loss advised 5. Hypocalcemia correction initiated 6. DVT prophylaxis; SC heparin Code Visit Inpatient E&M: 36338 Subs Hosp L2
[2018-08-14 07:22] LABS: Anion Gap 9 (5-15); BUN 20 mg/dL (7-18); BUN/Creat Ratio 21.2 RATIO (10-20); Calcium,Total 6.7 mg/dL (8.5-10.1); Chloride 102 mmol/L (98-107); Creatinine, Serum 0.94 mg/dL (0.55-1.02); EST Glomerular Filtration Rate 72 mL/min (>60); Est Glom Filt Rate - Afr Amer 87 mL/min (>60); Glucose 94 mg/dL (74-106); Sodium Level 142 mmol/L (136-145)
--- NOTE | 2018-08-14 07:51 | PCM.DC ---
- Discharge Diagnoses Current Active Problems: Current Active and Chronic Problems CHF (congestive heart failure) (Acute) Hypertensive crisis (Acute) You will use the following diet at home:: Regular Your food should be the consistency of: Regular Discharge Activity: Return to Normal Activity, May Drive, May Shower Return to work on:: 10/14/18 May shower in (days): 0 May resume sexual activity in: 4 weeks Call your doctor if your incision/area has: Sudden Increased Bleeding, Foul Smelling Discharge, Swelling at the incision site Call your doctor if you observe: Fever of 101 or Higher, Inability to urinate, Inability to have a bowel movement, Using more than one pad per hour, Shortness of breath, Chest pain, Calf discomfort, Uncontrolled pain Cleanse incision/area with: Soap & Water Allergies/Adverse Reactions: Allergies Sulfa (Sulfonamide Antibiotics) Adverse Reaction (Verified 08/12/18 02:31) Vomiting Medications to take at Discharge Docusate Sodium [Colace] 100 mg PO BID PRN PRN #60 capsule 08/03/18 Ibuprofen 600 mg PO 4X/DAY #30 tab 08/06/18 Sertraline HCl [Zoloft] 50 mg PO DAILY 08/12/18 Calcium Carb/Vitamin D [Os-Fidencio 500MG + D] 1 tablet PO TIDCM #90 tablet 08/14/18 Docusate Sodium [Colace] 100 mg PO BID #60 cap 08/14/18 Hydrochlorothiazide [Hctz] 25 mg PO DAILY #30 tab 08/14/18 Hydrochlorothiazide [Hctz] 25 mg PO DAILY #30 tablet 08/14/18 Labetalol [Trandate (Beta José Miguel)] 600 mg PO TID #90 tablet 08/14/18 Sertraline HCl [Zoloft] 50 mg PO DAILY tablet 08/14/18 hydrALAZINE [Apresoline] 50 mg PO TID #60 tab 08/14/18 hydrALAZINE [Apresoline] 50 mg PO TID #90 tablet 08/14/18 The following prescriptions were given: Hydrochlorothiazide [Hctz] 25 mg PO DAILY #30 tablet Hydrochlorothiazide [Hctz] 25 mg PO DAILY #30 tab Docusate Sodium [Colace] 100 mg PO BID #60 cap Calcium Carb/Vitamin D [Os-Fidnecio 500MG + D] 1 tablet PO TIDCM #90 tablet hydrALAZINE [Apresoline] 50 mg PO TID #90 tablet hydrALAZINE [Apresoline] 50 mg PO TID #60 tab Labetalol [Trandate (Beta José Miguel)] 600 mg PO TID #90 tablet Primary Care Physician: Gladys Broussard PA [Primary Care Provider] - Test Results: Test results from this visit will be discussed in further detail at your follow-up appointment, if applicable. Please Follow Up With: Gavino Cortez MD When: one week
--- NOTE | 2018-08-14 07:54 | DCINST_ITS ---
- Discharge Diagnoses Current Active Problems: Current Active and Chronic Problems CHF (congestive heart failure) (Acute) Hypertensive crisis (Acute) You will use the following diet at home:: Regular Your food should be the consistency of: Regular Discharge Activity: Return to Normal Activity, May Drive, May Shower Return to work on:: 10/14/18 May shower in (days): 0 May resume sexual activity in: 4 weeks Call your doctor if your incision/area has: Sudden Increased Bleeding, Foul Smelling Discharge, Swelling at the incision site Call your doctor if you observe: Fever of 101 or Higher, Inability to urinate, Inability to have a bowel movement, Using more than one pad per hour, Shortness of breath, Chest pain, Calf discomfort, Uncontrolled pain Cleanse incision/area with: Soap & Water Allergies/Adverse Reactions: Allergies Sulfa (Sulfonamide Antibiotics) Adverse Reaction (Verified 08/12/18 02:31) Vomiting Medications to take at Discharge Docusate Sodium [Colace] 100 mg PO BID PRN PRN #60 capsule 08/03/18 Ibuprofen 600 mg PO 4X/DAY #30 tab 08/06/18 Sertraline HCl [Zoloft] 50 mg PO DAILY 08/12/18 Calcium Carb/Vitamin D [Os-Fidencio 500MG + D] 1 tablet PO TIDCM #90 tablet 08/14/18 Docusate Sodium [Colace] 100 mg PO BID #60 cap 08/14/18 Hydrochlorothiazide [Hctz] 25 mg PO DAILY #30 tab 08/14/18 Hydrochlorothiazide [Hctz] 25 mg PO DAILY #30 tablet 08/14/18 Labetalol [Trandate (Beta José Miguel)] 600 mg PO TID #90 tablet 08/14/18 Sertraline HCl [Zoloft] 50 mg PO DAILY tablet 08/14/18 hydrALAZINE [Apresoline] 50 mg PO TID #60 tab 08/14/18 hydrALAZINE [Apresoline] 50 mg PO TID #90 tablet 08/14/18 The following prescriptions were given: Hydrochlorothiazide [Hctz] 25 mg PO DAILY #30 tablet Hydrochlorothiazide [Hctz] 25 mg PO DAILY #30 tab Docusate Sodium [Colace] 100 mg PO BID #60 cap Calcium Carb/Vitamin D [Os-Fidencio 500MG + D] 1 tablet PO TIDCM #90 tablet hydrALAZINE [Apresoline] 50 mg PO TID #90 tablet hydrALAZINE [Apresoline] 50 mg PO TID #60 tab Labetalol [Trandate (Beta José Miguel)] 600 mg PO TID #90 tablet Primary Care Physician: Gladys Broussard PA [Primary Care Provider] - Test Results: Test results from this visit will be discussed in further detail at your follow- up appointment, if applicable. Please Follow Up With: Gavino Cortez MD When: one week
--- NOTE | 2018-08-14 07:54 | PCM.PN.OB ---
Patient Problems: Active and Suspected Problems CHF (congestive heart failure) (Acute) Hypertensive crisis (Acute) Subjective: Feels better this morning. No headache. Swelling decrease significantly. Tolerating PO. No respiratory complaints. Objective: Afeb BPs reasonable today with diastolics in 80s. Occassional elevated sytolic above 160. O2 sats normal. - Physical Exam General: Alert, Oriented x3, Cooperative, No apparent distress Lungs: Clear to auscultation, Normal air movement Cardiovascular: Regular rate, Regular Rhythm Abdomen: Soft, Non Tender, Non-Distended, - - Incision healing well. Extremities: Edema - trace Skin: No rashes Neurological: Neuro grossly intact Psych/Mental Status: Normal Affect Comment: Lochia scant Vital Signs Temp Pulse Resp BP Pulse Ox 99 F 80 20 H 142/80 H 98 08/14/18 03:40 08/14/18 06:13 08/14/18 03:40 08/14/18 06:13 08/13/18 22:36 Oxygen Flow Rate (L/min) 2 Oxygen Delivery Method Room Air Weight: 284 lb Body Mass Index (BMI) 50.3 Intake and Output for Last 24 Hours 08/12/18 08/13/18 08/14/18 23:59 23:59 23:59 Intake Total 2985.5 / 2985.5 2955 / 2955 Output Total 6550 / 6550 4375 / 4375 600 / 600 Balance -3564.5 / -3564.5 -1420 / -1420 -600 / -600 Laboratory Tests Past 24 Hrs 08/14/18 08/14/18 06:35 06:35 WBC 5.5 RBC 3.60 L Hgb 11.1 L Hct 34.9 L MCV 96.9 MCH 30.8 MCHC 31.8 L RDW 13.9 RDW Differential 46.8 H Plt Count 336 MPV 8.9 Sodium 142 Potassium 4.0 Chloride 102 Carbon Dioxide 31.0 Anion Gap 9 BUN 20 H Creatinine 0.94 Estim Creat Clear Calc 69.10 Est GFR (MDRD) Af Amer 87 Est GFR (MDRD) Non-Af 72 BUN/Creatinine Ratio 21.2 H Glucose 94 Calcium 6.7 L Medical Necessity - Tobacco Use Smoking Status: Never smoker Assessment/Plan All Active Problems 37 weeks gestation of (Acute) CHF (congestive heart failure) (Acute) Hypertensive crisis (Acute) Doing well today. Given overall improvement in blood pressure control willl discharge home on PO medications. Warnings given regarding worsening BPs or symptoms of respiratory problems or headaches or swelling.
--- NOTE | 2018-08-14 08:02 | PCM.DC.SUM ---
Discharge Date and Diagnosis - Problem List Patient Problems: Active and Suspected Problems CHF (congestive heart failure) (Acute) Hypertensive crisis (Acute) Date of Admission: 08/11/18 Date of Discharge: 08/14/18 - Primary Discharge Diagnosis Active and Suspected Problems CHF (congestive heart failure) (Acute) Hypertensive crisis (Acute) - Secondary Discharge Diagnosis Chronic Problems Chronic hypertension with superimposed preeclampsia (Chronic) delivery delivered (Chronic) Previous section complicating , with delivery (Chronic) Hospital Course and Treatment Operations: None, - - Repeat LTCS Procedures: 2-D Echocardiogram, EKG, - - Chest CT, Doppler venous study Summary of Care Provided: The patient is a 33 year old F [admitted approximately one week post operatively from repeat C/S which was performed for preeclampsia and worsening BPs. She had symptoms of headache and difficulty breathing. She was placed on magnesium sulfate prophylaxis. Studies included CT of the chest, echocardiogram, and venous doppler study. She was diagnosed with CHF but had normal echocardiogram with preserved EF. SHe was placed on a combination of IV and PO antihypertensives and diuretics with good diuresis obtained resulting in better blood pressures and respiratory symptoms. She was stabilized on PO medications and discharged home on hospital day #4.] Patient Problems: Active and Suspected Problems CHF (congestive heart failure) (Acute) Hypertensive crisis (Acute) - Physical Exam General: Alert, Oriented x3, Cooperative, No apparent distress Lungs: Clear to auscultation, Normal air movement Cardiovascular: Regular rate, Regular Rhythm Abdomen: Soft, Non Tender, Non-Distended Extremities: Edema - trace Skin: No rashes Neurological: Neuro grossly intact Psych/Mental Status: Normal Affect Vital Signs Temp Pulse Resp BP Pulse Ox 99 F 80 20 H 142/80 H 98 08/14/18 03:40 08/14/18 06:13 08/14/18 03:40 08/14/18 06:13 08/13/18 22:36 Oxygen Flow Rate (L/min) 2 Oxygen Delivery Method Room Air Weight: 284 lb Body Mass Index (BMI) 50.3 Intake and Output for Last 24 Hours 08/12/18 08/13/18 08/14/18 23:59 23:59 23:59 Intake Total 2985.5 / 2985.5 2955 / 2955 Output Total 6550 / 6550 4375 / 4375 2400 / 2400 Balance -3564.5 / -3564.5 -1420 / -1420 -2400 / -2400 Laboratory Tests Past 24 Hrs 08/14/18 08/14/18 06:35 06:35 WBC 5.5 RBC 3.60 L Hgb 11.1 L Hct 34.9 L MCV 96.9 MCH 30.8 MCHC 31.8 L RDW 13.9 RDW Differential 46.8 H Plt Count 336 MPV 8.9 Sodium 142 Potassium 4.0 Chloride 102 Carbon Dioxide 31.0 Anion Gap 9 BUN 20 H Creatinine 0.94 Estim Creat Clear Calc 69.10 Est GFR (MDRD) Af Amer 87 Est GFR (MDRD) Non-Af 72 BUN/Creatinine Ratio 21.2 H Glucose 94 Calcium 6.7 L Discharge Diet: No Restrictions Discharge Activity: Return to Normal Activity, May Drive, May Shower Return to work on:: 10/14/18 May shower in (days): 0 May resume sexual activity in: 4 weeks Call your doctor if your incision/area has: Sudden Increased Bleeding, Foul Smelling Discharge, Swelling at the incision site Call your doctor if you observe: Fever of 101 or Higher, Inability to urinate, Inability to have a bowel movement, Using more than one pad per hour, Shortness of breath, Chest pain, Calf discomfort, Uncontrolled pain Cleanse incision/area with: Soap & Water Home Medications: Medications to take at Discharge Docusate Sodium [Colace] 100 mg PO BID PRN PRN #60 capsule 08/03/18 Ibuprofen 600 mg PO 4X/DAY #30 tab 08/06/18 Sertraline HCl [Zoloft] 50 mg PO DAILY 08/12/18 Calcium Carb/Vitamin D [Os-Fidencio 500MG + D] 1 tablet PO TIDCM #90 tablet 08/14/18 Docusate Sodium [Colace] 100 mg PO BID #60 cap 08/14/18 Hydrochlorothiazide [Hctz] 25 mg PO DAILY #30 tab 08/14/18 Hydrochlorothiazide [Hctz] 25 mg PO DAILY #30 tablet 08/14/18 Labetalol [Trandate (Beta José Miguel)] 600 mg PO TID #90 tablet 08/14/18 Sertraline HCl [Zoloft] 50 mg PO DAILY tablet 08/14/18 hydrALAZINE [Apresoline] 50 mg PO TID #60 tab 08/14/18 hydrALAZINE [Apresoline] 50 mg PO TID #90 tablet 08/14/18 Following Prescrptions Were Given to Patient: Hydrochlorothiazide [Hctz] 25 mg PO DAILY #30 tablet Hydrochlorothiazide [Hctz] 25 mg PO DAILY #30 tab Docusate Sodium [Colace] 100 mg PO BID #60 cap Calcium Carb/Vitamin D [Os-Fidencio 500MG + D] 1 tablet PO TIDCM #90 tablet hydrALAZINE [Apresoline] 50 mg PO TID #90 tablet hydrALAZINE [Apresoline] 50 mg PO TID #60 tab Labetalol [Trandate (Beta José Miguel)] 600 mg PO TID #90 tablet Primary Care Physician: Gladys Broussard PA [Primary Care Provider] - Please Follow Up With: Gavino Cortez MD When: one week Disposition: Home Minutes spent on discharge:: 20 Patient Condition:: Good Medical Necessity - Tobacco Use Smoking Status: Never smoker Meaningful Use Info Meaningful Use Diagnoses (Choose all that apply): CHF - treated - CHF LAKEISHA/ARB ordered at discharge?: No Reason LAKEISHA/ARB not ordered?: Allergy Documented LVEF (%): 65
[2018-08-14] MEDS: Calcium Carb/Vitamin D 1 TABLET Tablet PO (08:21)
[2018-08-14 08:56] LABS: Magnesium 3.2 mg/dL (1.6-2.6)
[2018-08-14 10:52] VITALS: BP 144/81; PULSE 60
[2018-08-14] MEDS: Docusate Sodium 100 MG Capsule PO (10:52)
[2018-08-14] MEDS: Sertraline 50 MG Tablet PO (10:52)
[2018-08-14 10:55] VITALS: BP 140/78; PULSE 80; RESP 16; TEMP 36.8; O2SAT 98
[2018-08-14 11:00] VITALS: BP 140/78; PULSE 83; RESP 16; TEMP 36.8; O2SAT 98
[2018-08-14] MEDS: hydroCHLOROthiazide 25 MG Tablet PO (11:17)
== END 2018-08-14 11:40 | disposition home or self-care (01) | DRG 776 ==
LOC: ED 22:49 → WP 08-12 01:34
PROVIDERS: Internal Medicine; Admitting Provider Obstetrics & Gynecology; Emergency Provider Emergency Medicine; Family Provider Physician Assistant Medical; PCP Physician Assistant Medical; Visit Provider Obstetrics & Gynecology
DX: O11.5 Pre-existing hypertension with pre-eclampsia, complicating the puerperium (principal); I50.31 Acute diastolic (congestive) heart failure; Z68.43 Body mass index [BMI] 50.0-59.9, adult; I16.9 Hypertensive crisis, unspecified; O10.119 Pre-existing hypertensive heart disease complicating pregnancy, unspecified trimester; I11.0 Hypertensive heart disease with heart failure; O13.5 Gestational [pregnancy-induced] hypertension without significant proteinuria, complicating the puerperium; O99.215 Obesity complicating the puerperium; E66.01 Morbid (severe) obesity due to excess calories; F53.0 Postpartum depression; O90.89 Other complications of the puerperium, not elsewhere classified; R06.02 Shortness of breath; E83.51 Hypocalcemia; Z79.899 Other long term (current) drug therapy
CPT/HCPCS: 36415; 71045; 71275; 80048; 80076; 83615; 83735; 84484; 85025; 85027; 85610; 93005; 93306; 93970; 99218; 99283; J7120; Q9967; A4216; G0378; J1940

== ENCOUNTER → 2018-09-04 08:34 | Outpatient (CLI) | payer BC, SELFPAY ==
[2018-09-04 09:37] LABS: Anion Gap 7 (5-15); BUN 19 mg/dL (7-18); BUN/Creat Ratio 15.6 RATIO (10-20); Calcium,Total 8.7 mg/dL (8.5-10.1); Chloride 104 mmol/L (98-107); Creatinine, Serum 1.22 mg/dL (0.55-1.02); EST Glomerular Filtration Rate 53 mL/min (>60); Est Glom Filt Rate - Afr Amer 64 mL/min (>60); Glucose 104 mg/dL (74-106); Potassium 3.6 mmol/L (3.5-5.1); Sodium Level 142 mmol/L (136-145)
[2018-09-04 10:23] LABS: BNP,B-Type NATRIURETIC PEPTIDE 12.1 pg/mL (0-100)
--- OUTSIDE RECORDS SUMMARY | 2018-10-30 08:16 | XMS RPT_ITS ---
:1985 Author Organization OHIP Support Name Relationship Address Phone MESSI RIVER Unavailable [address] + [place] [address] CHATA FLANAGAN Unavailable [address] + [place] [phone] MESSI RIVER Unavailable [address] + [place] [address] CHATA FLANAGAN Unavailable [address] + [place] [phone] MESSI RIVER Unavailable [address] + [place] [address] CHATA FLANAGAN Unavailable [address] + [place] [phone] MESSI RIVER Unavailable [address] + [place] [address] CHATA FLANAGAN Unavailable [address] + [place] [phone] MESSI RIVER Unavailable [address] + [place] [address] CHATA FLANAGAN Unavailable [address] + [place] [address] MESSI RIVER Unavailable [address] + [place] [phone] CHTAA FLANAGAN Unavailable [address] + [place] [address] MESSI RIVER Unavailable [address] + [place] [phone] CHATA FLANAGAN Unavailable [address] + [place] [phone] MESSI RIVER Unavailable [address] + [place] [address] CHATA FLANAGAN Unavailable [address] + [place] [phone] MESSI RIVER Unavailable [address] + [place] [phone] CHATA FLANAGAN Unavailable [address] + [place] [address] MESSI RIVER Unavailable [address] + [place] [phone] MUNDO FLANAGANIAN Unavailable [address] + [place] [phone] MESSI RIVER Unavailable [address] + [place] [address] CHATA FLANAGAN Unavailable [address] + [place] [phone] MESSI RIVER Unavailable [address] + [place] [address] CHATA FLANAGAN Unavailable [address] + [place] [phone] MESSI RIVER Unavailable [address] + [place] [address] CHATA FLANAGAN Unavailable [address] + [place] [phone] MESSI RIVER Unavailable [address] + [place] [phone] CHATA FLANAGAN Unavailable [address] + [place] [phone] MESSI RIVER Unavailable [address] + [place] [address] CHATA FLANAGAN Unavailable [address] + [place] [phone] MESSI RIVER Unavailable [address] + [place] [phone] CHATA FLANAGAN Unavailable [address] + [place] [address] Care Team Providers Name Role Phone MEGGAN BROUSSARD Admitting Unavailable MEGGAN BROUSSARD Attending Unavailable MEGGAN BROUSSARD Primary Care Unavailable MEGGAN BROUSSARD Admitting Unavailable MEGGAN BROUSSARD Attending Unavailable MEGGAN BROUSSARD Primary Care Unavailable MEGGAN BROUSSARD Attending Unavailable MEGGAN BROUSSARD Primary Care Unavailable MEGGAN BROUSSARD Admitting Unavailable MEGGAN BROUSSARD Attending Unavailable MEGGAN BROUSSARD Primary Care Unavailable MEGGAN BROUSSARD Admitting Unavailable AARTI, MEGGAN B Attending Unavailable AARTI, MEGGAN B Primary Care Unavailable Seals, Gavino Attending Unavailable Aarti, Meggan Primary Care Unavailable Seals, Gavino Attending Unavailable Seals, Gavino Attending Unavailable Seals, Gavino Attending Unavailable Seals, Gavino Attending Unavailable Seals, Gavino Attending Unavailable Seals, Gavino Admitting Unavailable Seals, Gavino Attending Unavailable Aarti, Meggan Primary Care Unavailable Seals, Gavino Attending Unavailable Seals, Gavino Attending Unavailable Tripathi-Tai, Summer Attending Unavailable Tripathi-Tai, Summer Referring Unavailable Tripathi-Tai, Summer Admitting Unavailable Aarti, Meggan Primary Care Unavailable Weeman, Phi Admitting Unavailable Weeman, Phi Attending Unavailable Weeman, Phi Admitting Unavailable Kittoe, Gavino Attending Unavailable Gladstone, Meggan Primary Care Unavailable Weeman, Phi Consulting Unavailable Weeman, Phi Admitting Unavailable Kittoe, Gavino Attending Unavailable Aarti, Meggan Primary Care Unavailable Weeman, Phi Consulting Unavailable Weeman, Phi Admitting Unavailable Kittoe, Gavino Attending Unavailable Aarti, Princewick Primary Care Unavailable Weeman, Phi Consulting Unavailable Aarti, Meggan Attending Unavailable Aarti, Princewick Primary Care Unavailable Aarti, Meggan Referring Unavailable Gilberto Suh Attending Unavailable Weeman, Phi Referring Unavailable PROBLEMS PROBLEMS DATE TYPE CONDITION / CODE ATTENDING STATUS SOURCE 09/22/2018 Unknown Z11.3 - Encounter Gavino Cortez Active [place] for screening for Community infections with a Hospital predominantly sexual Repository mode of transmission / Z11.3(ICD-10) 09/02/2018 Unknown R07.9 - Chest pain, Gilberto Suh Active [place] unspecified / Community R07.9(ICD-10) Hospital Repository 08/06/2018 Unknown O82 - Encounter for Tripathi-Tai, Active [facility]rielle delivery [facility] without indication / Hospital O82(ICD-10) Repository 08/06/2018 Unknown G89.18 - Other acute Deuce-Tai, Active [place] postprocedural pain [facility] / G89.18(ICD-10) Hospital Repository 07/24/2018 Unknown Z36.85 - Encounter Gavino Cortez Active [place] for Community screening for Hospital Streptococcus B / Repository Z36.85(ICD-10) 05/23/2018 Unknown Z34.83 - Encounter Gavino Cortez Active [place] for supervision of Community other normal Hospital , third Repository trimester / Z34.83(ICD-10) 12/31/2017 Unknown Z34.81 - Encounter Seals, Gavino Anthony for supervision of Community other normal Hospital , first Repository trimester / Z34.81(ICD-10) 12/20/2017 Unknown O20.0 - Threatened Seals Gavino Anthony / Community O20.0(ICD-10) Hospital Repository 12/17/2017 Unknown Z12.4 - Encounter Seals Gavino Anthony for screening for Community malignant neoplasm Hospital of cervix / Repository Z12.4(ICD-10) 12/17/2017 Unknown Z32.01 - Encounter Seals, Gavino Anthony for test, Community result positive / Hospital Z32.01(ICD-10) Repository PROCEDURES PROCEDURES No Procedure Records FoundRESULTS RESULTS CT/NG WCH BY PCR Collected: 09/22/2018 Status: F Source: [place] 9:45 AM [facility] REPOSITORY TYPE CODE TESTS RESULT OUT OF RANGE REFERENCE UNITS LAB L8200.2100 Negative Normal Chlam Negative Trac PCR LAB L8200.2200 Negative Normal NG by Negative PCR Performed By: #### L8200.2000 #### [facility] [address] [place], [place], [address] PROGESTERONE LEVEL Collected: 09/18/2018 Status: F Source: [place] 9:54 AM [facility] REPOSITORY TYPE CODE TESTS RESULT OUT OF REFERENCE UNITS RANGE LAB L509.4001 See Comment ng/mL Progesterone Normal 0.16 Result Comment: Progesterone Reference Table: UNITS Female: Follicular 0.15 - 1.40 ng/mL Luteal 3.34 - 25.56 ng/mL Mid-luteal 4.44 - 28.03 ng/mL Postmenopausal 0.0 - 0.73 ng/mL : 1st Trimester 11.22 - 90.00 ng/mL 2nd Trimester 25.55 - 89.40 ng/mL 3rd Trimester 48.40 -422.50 ng/mL Performed By: #### L509.4001 #### [facility] [address] [place], [place], [address] HCG TITER QUANT., Collected: 09/18/2018 Status: F Source: [place] SERUM 9:54 AM [facility] REPOSITORY TYPE CODE TESTS RESULT OUT OF RANGE REFERENCE UNITS LAB L700.8000 <9 non-preg mIU/mL Normal HCG < 1 QUANT. Performed By: #### L700.8000 #### [facility] [address] [place], [address] BASIC METABOLIC Collected: 09/04/2018 Status: F Source: [place] PROFILE (BMP) 8:40 AM [facility] REPOSITORY TYPE CODE TESTS RESULT OUT OF RANGE REFERENCE UNITS LAB L501.0100 74-106 mg/dL Normal GLU 104 Result Comment: Fasting Glucose result from 100 to 125 mg/dL suggests IMPAIRED HOMEOSTASIS per A.D.A. criteria. Please note revised GLUCOSE reference range effective 2017. LAB L501.1000 7-18 mg/dL High BUN 19 LAB L501.1100 0.55-1.02 mg/dL High CREAT,SERUM 1.22 Result Comment: The validity of the calculated GFR AND GFRAA in patients over 70 years has not been determined. Clinical correlation is essential. LAB L501.1110 >60 mL/min Low EST GFR 53 Result Comment: Non- GFR Calc LAB L501.1115 >60 mL/min Normal EST GFR - AA 64 Result Comment: GFR Calc LAB L501.1300 10-20 RATIO Normal BUN/CRE 15.6 LAB L501.2200 8.5-10.1 mg/dL CA Normal 8.7 LAB L501.5300 136-145 mmol/L NA Normal 142 LAB L501.5600 3.5-5.1 mmol/L K Normal 3.6 LAB L501.5900 98-107 mmol/L CL Normal 104 LAB L501.6100 21.0-32.0 mmol/L Normal CO2 31.0 LAB L501.6200 5-15 Normal GAP 7 Performed By: #### L500.2500 #### [facility] [address] [facility] [address] [place], [place], [id number] BNP,B-TYPE NATRIURETIC Collected: 09/04/2018 Status: F Source: [place] PEPTIDE 8:40 AM [facility] REPOSITORY TYPE CODE TESTS RESULT OUT OF RANGE REFERENCE UNITS LAB L503.6620 0-100 pg/mL Normal B-TYPE 12.1 SHAUNA PEP Performed By: #### L503.6620 #### [facility] [address] [place], [address] 12 LEAD ELECTROCARDIOGRAM Observed: 08/14/2018 Status: F Source: [place] 3:29 PM [facility] Cardiovascular Services [address] [place] [address] 12 Lead EKG 08/11/18 2210 MR#: [id number] Acct: [id number] Name: REI FLANAGAN Rep #: [id number] : 1985 33 From: Geo Loco MD Attending Dr: Shilpa VELAZQUEZ,Phi Status: DIS IN Ordering Dr: Provider,Ed P. Date: 08/11/18 Location: Sex: F C Admitted: 08/12/18 Test Reason : CP Blood Pressure : / mmHG Vent. Rate : 081 BPM Atrial Rate : 081 BPM P-R Int : 154 ms QRS Dur : 086 ms QT Int : 364 ms P-R-T Axes : 059 -14 015 degrees QTc Int : 422 ms Normal sinus rhythm Possible Left atrial enlargement Borderline ECG Confirmed by IVONNE VELAZQUEZ, GEO ([id number]), film editor HANNAH MAI ([id number]) on 08/14/2018 3:29:20 PM Referred By: LORIE Confirmed By:GEO LOCO MD 08/14/18 1529 Date Geo Loco MD CC: Meggan Broussard; ED PHYSICIAN PROVIDER; Phi Massey MD Signed DISCHARGE SUMMARY Observed: 08/14/2018 Status: F Source: [place] 8:11 AM [facility] REPOSITORY [facility] Medical Records Department [address] [place] [address] Discharge Summary 08/14/18 0802 MR#: [id number] Acct: [id number] Name: REI FLANAGAN Rep #: [id number] : 1985 33 From: Gavino Cortez MD PCP: Meggan Broussard Status: ADM IN Y Location: [id number] Discharge Date and Diagnosis - Problem List Patient Problems: Active and Suspected Problems CHF (congestive heart failure) (Acute) Hypertensive crisis (Acute) Date of Admission: 08/11/18 Date of Discharge: 08/14/18 - Primary Discharge Diagnosis Active and Suspected Problems CHF (congestive heart failure) (Acute) Hypertensive crisis (Acute) - Secondary Discharge Diagnosis Chronic Problems Chronic hypertension with superimposed preeclampsia (Chronic) delivery delivered (Chronic) Previous section complicating , with delivery (Chronic) Hospital Course and Treatment Operations: None, - - Repeat LTCS Procedures: 2-D Echocardiogram, EKG, - - Chest CT, Doppler venous study Summary of Care Provided: The patient is a 33 year old F [admitted approximately one week post operatively from repeat C/S which was performed for preeclampsia and worsening BPs. She had symptoms of headache and difficulty breathing. She was placed on magnesium sulfate prophylaxis. Studies included CT of the chest, echocardiogram, and venous doppler study. She was diagnosed with CHF but had normal echocardiogram with preserved EF. SHe was placed on a combination of IV and PO antihypertensives and diuretics with good diuresis obtained resulting in better blood pressures and respiratory symptoms. She was stabilized on PO medications and discharged home on hospital day #4.] Patient Problems: Active and Suspected Problems CHF (congestive heart failure) (Acute) Hypertensive crisis (Acute) - Physical Exam General: Alert, Oriented x3, Cooperative, No apparent distress Lungs: Clear to auscultation, Normal air movement Cardiovascular: Regular rate, Regular Rhythm Abdomen: Soft, Non Tender, Non-Distended Extremities: Edema - trace Skin: No rashes Neurological: Neuro grossly intact Psych/Mental Status: Normal Affect Vital Signs Temp Pulse Resp BP Pulse Ox 99 F 80 20 H 142/80 H 98 08/14/18 03:40 08/14/18 06:13 08/14/18 03:40 08/14/18 06:13 08/13/18 22:36 Oxygen Flow Rate (L/min) 2 Oxygen Delivery Method Room Air Weight: 284 lb Body Mass Index (BMI) 50.3 Intake and Output for Last 24 Hours Laboratory Tests Past 24 Hrs WBC 5.5 RBC 3.60 L Hgb 11.1 L Hct 34.9 L Discharge Diet: No Restrictions Discharge Activity: Return to Normal Activity, May Drive, May Shower Return to work on:: 10/14/18 May shower in (days): 0 May resume sexual activity in: 4 weeks Call your doctor if your incision/area has: Sudden Increased Bleeding, Foul Smelling Discharge, Swelling at the incision site Call your doctor if you observe: Fever of 101 or Higher, Inability to urinate, Inability to have a bowel movement, Using more than one pad per hour, Shortness of breath, Chest pain, Calf discomfort, Uncontrolled pain Cleanse incision/area with: Soap AND Water Home Medications: Medications to take at Discharge Docusate Sodium [Colace] 100 mg PO BID PRN PRN #60 capsule 08/03/18 Ibuprofen 600 mg PO 4X/DAY #30 tab 08/06/18 Sertraline HCl [Zoloft] 50 mg PO DAILY 08/12/18 Calcium Carb/Vitamin D [Os-Fidencio 500MG + D] 1 tablet PO TIDCM #90 tablet 08/14/18 Docusate Sodium [Colace] 100 mg PO BID #60 cap 08/14/18 Hydrochlorothiazide [Hctz] 25 mg PO DAILY #30 tab 08/14/18 Hydrochlorothiazide [Hctz] 25 mg PO DAILY #30 tablet 08/14/18 Labetalol [Trandate (Beta José Miguel)] 600 mg PO TID #90 tablet 08/14/18 Sertraline HCl [Zoloft] 50 mg PO DAILY tablet 08/14/18 hydrALAZINE [Apresoline] 50 mg PO TID #60 tab 08/14/18 hydrALAZINE [Apresoline] 50 mg PO TID #90 tablet 08/14/18 Following Prescrptions Were Given to Patient: Hydrochlorothiazide [Hctz] 25 mg PO DAILY #30 tablet Hydrochlorothiazide [Hctz] 25 mg PO DAILY #30 tab Docusate Sodium [Colace] 100 mg PO BID #60 cap Calcium Carb/Vitamin D [Os-Fidencio 500MG + D] 1 tablet PO TIDCM #90 tablet hydrALAZINE [Apresoline] 50 mg PO TID #90 tablet hydrALAZINE [Apresoline] 50 mg PO TID #60 tab Labetalol [Trandate (Beta José Miguel)] 600 mg PO TID #90 tablet Primary Care Physician: Meggan Broussard PA [Primary Care Provider] - Please Follow Up With: Gavino Cortez MD When: one week Disposition: Home Minutes spent on discharge:: 20 Patient Condition:: Good Medical Necessity - Tobacco Use Smoking Status: Never smoker Meaningful Use Info Meaningful Use Diagnoses (Choose all that apply): CHF - treated - CHF LAKEISHA/ARB ordered at discharge?: No Reason LAKEISHA/ARB not ordered?: Allergy Documented LVEF (%): 65 08/14/18 0811 <Electronically signed by Gavino Cortez MD> Date Gavino Cortez MD Cosigner Signature (if applicable): Date CC: Meggan Broussard; Gavino Cortez MD Signed DISCHARGE INSTRUCTION Observed: 08/14/2018 Status: F Source: [place] 7:54 AM [facility] REPOSITORY [facility] Medical Records Department [address] [place] [address] Instructions for Home/Discharge Instructions 08/14/18 0751 MR#: [id number] Acct: [id number] Name: REI FLANAGAN Rep #: [id number] : 1985 33 From: Gavino Cortez MD PCP: Meggan Broussard Status: ADM IN - Discharge Diagnoses Current Active Problems: Current Active and Chronic Problems CHF (congestive heart failure) (Acute) Hypertensive crisis (Acute) You will use the following diet at home:: Regular Your food should be the consistency of: Regular Discharge Activity: Return to Normal Activity, May Drive, May Shower Return to work on:: 10/14/18 May shower in (days): 0 May resume sexual activity in: 4 weeks Call your doctor if your incision/area has: Sudden Increased Bleeding, Foul Smelling Discharge, Swelling at the incision site Call your doctor if you observe: Fever of 101 or Higher, Inability to urinate, Inability to have a bowel movement, Using more than one pad per hour, Shortness of breath, Chest pain, Calf discomfort, Uncontrolled pain Cleanse incision/area with: Soap AND Water Allergies/Adverse Reactions: Allergies Sulfa (Sulfonamide Antibiotics) Adverse Reaction (Verified 08/12/18 02:31) Vomiting Medications to take at Discharge Docusate Sodium [Colace] 100 mg PO BID PRN PRN #60 capsule 08/03/18 Ibuprofen 600 mg PO 4X/DAY #30 tab 08/06/18 Sertraline HCl [Zoloft] 50 mg PO DAILY 08/12/18 Calcium Carb/Vitamin D [Os-Fidencio 500MG + D] 1 tablet PO TIDCM #90 tablet 08/14/18 Docusate Sodium [Colace] 100 mg PO BID #60 cap 08/14/18 Hydrochlorothiazide [Hctz] 25 mg PO DAILY #30 tab 08/14/18 Hydrochlorothiazide [Hctz] 25 mg PO DAILY #30 tablet 08/14/18 Labetalol [Trandate (Beta José Miguel)] 600 mg PO TID #90 tablet 08/14/18 Sertraline HCl [Zoloft] 50 mg PO DAILY tablet 08/14/18 hydrALAZINE [Apresoline] 50 mg PO TID #60 tab 08/14/18 hydrALAZINE [Apresoline] 50 mg PO TID #90 tablet 08/14/18 The following prescriptions were given: Hydrochlorothiazide [Hctz] 25 mg PO DAILY #30 tablet Hydrochlorothiazide [Hctz] 25 mg PO DAILY #30 tab Docusate Sodium [Colace] 100 mg PO BID #60 cap Calcium Carb/Vitamin D [Os-Fidencio 500MG + D] 1 tablet PO TIDCM #90 tablet hydrALAZINE [Apresoline] 50 mg PO TID #90 tablet hydrALAZINE [Apresoline] 50 mg PO TID #60 tab Labetalol [Trandate (Beta José Miguel)] 600 mg PO TID #90 tablet Primary Care Physician: Meggan Broussard PA [Primary Care Provider] - Test Results: Test results from this visit will be discussed in further detail at your follow-up appointment, if applicable. Please Follow Up With: Gavino Cortez MD When: one week 08/14/18 0754 <Electronically signed by Gavino Cortez MD> Date Gavino Cortez MD CC: Meggan Broussard CBC-COMPLETE BLOOD CNT Collected: 08/14/2018 Status: F Source: [place] NO DIFF 6:35 AM [facility] REPOSITORY TYPE CODE TESTS RESULT OUT OF RANGE REFERENCE UNITS LAB L100.1000 4.4-11.0 K/mm3 Normal WBC 5.5 LAB L100.1200 4.2-5.4 M/mm3 Low RBC 3.60 LAB L100.1300 12.0-15.0 g/dl Low HGB 11.1 LAB L100.1400 37-47 % Low HCT 34.9 LAB L100.1500 81-99 fL Normal MCV 96.9 LAB L100.1600 27.0-32.0 pg Normal MCH 30.8 LAB L100.1700 32-36 g/gl Low MCHC 31.8 LAB L100.1810 11.6-14.6 % Normal RDW CV 13.9 LAB L100.1820 35.1-43.9 fl High RDW SD 46.8 LAB L100.1900 150-450 K/mm3 Normal PLT 336 LAB L100.2000 6.2-12.0 fl Normal MPV 8.9 Performed By: #### L100.0500 #### [facility] [address] [place], [place], [address] BASIC METABOLIC Collected: 08/14/2018 Status: F Source: [place] PROFILE (BMP) 6:35 AM [facility] REPOSITORY TYPE CODE TESTS RESULT OUT OF RANGE REFERENCE UNITS LAB L501.0100 74-106 mg/dL Normal GLU 94 Result Comment: Please note revised GLUCOSE reference range effective 2017. LAB L501.1000 7-18 mg/dL High BUN 20 LAB L501.1100 0.55-1.02 mg/dL Normal CREAT,SERUM 0.94 Result Comment: The validity of the calculated GFR AND GFRAA in patients over 70 years has not been determined. Clinical correlation is essential. LAB L501.1110 >60 mL/min Normal EST GFR 72 Result Comment: Non- GFR Calc LAB L501.1115 >60 mL/min Normal EST GFR - AA 87 Result Comment: GFR Calc LAB L501.1255 ml/min Normal Estimated CRCL 69.10 LAB L501.1300 10-20 RATIO High BUN/CRE 21.2 LAB L501.2200 8.5-10 mg/dL Low .1 CA 6.7 LAB L501.5300 136-14 mmol/L Normal 5 NA 142 LAB L501.5600 3.5-5. mmol/L Normal 1 K 4.0 LAB L501.5900 98-107 mmol/L Normal CL 102 LAB L501.6100 21.0-3 mmol/L Normal 2.0 CO2 31.0 LAB L501.6200 5-15 Normal GAP 9 Performed By: #### L500.2500 #### [facility] [address] [facility] [place], [address] MAGNESIUM Collected: 08/14/2018 Status: F Source: [place] 6:35 AM [facility] REPOSITORY TYPE CODE TESTS RESULT OUT OF RANGE REFERENCE UNITS LAB L501.5200 1.6-2.6 mg/dL High MG 3.2 Performed By: #### L501.5200 #### [facility] [address] [place], [place], [address] CBC-COMPLETE BLOOD CNT Collected: 08/13/2018 Status: F Source: [place] NO DIFF 6:46 AM [facility] REPOSITORY TYPE CODE TESTS RESULT OUT OF RANGE REFERENCE UNITS LAB L100.1000 4.4-11.0 K/mm3 Normal WBC 6.0 LAB L100.1200 4.2-5.4 M/mm3 Low RBC 3.58 LAB L100.1300 12.0-15.0 g/dl Low HGB 10.8 LAB L100.1400 37-47 % Low HCT 34.0 LAB L100.1500 81-99 fL Normal MCV 95.0 LAB L100.1600 27.0-32.0 pg Normal MCH 30.2 LAB L100.1700 32-36 g/gl Low MCHC 31.8 LAB L100.1810 11.6-14.6 % Normal RDW CV 14.1 LAB L100.1820 35.1-43.9 fl High RDW SD 48.5 LAB L100.1900 150-450 K/mm3 Normal PLT 271 LAB L100.2000 6.2-12.0 fl Normal MPV 8.7 Performed By: #### L100.0500 #### [facility] [address] [place], [address] BASIC METABOLIC Collected: 08/13/2018 Status: F Source: [place] PROFILE (BMP) 6:46 AM [facility] REPOSITORY TYPE CODE TESTS RESULT OUT OF RANGE REFERENCE UNITS LAB L501.0100 74-106 mg/dL Normal GLU 106 Result Comment: Fasting Glucose result from 100 to 125 mg/dL suggests IMPAIRED HOMEOSTASIS per A.D.A. criteria. Please note revised GLUCOSE reference range effective 2017. LAB L501.1000 7-18 mg/dL Normal BUN 16 LAB L501.1100 0.55-1.02 mg/dL Normal CREAT,SERUM 0.86 Result Comment: The validity of the calculated GFR AND GFRAA in patients over 70 years has not been determined. Clinical correlation is essential. LAB L501.1110 >60 mL/min Normal EST GFR 80 Result Comment: Non- GFR Calc LAB L501.1115 >60 mL/min Normal EST GFR - AA 97 Result Comment: GFR Calc LAB L501.1255 ml/min Normal Estimated CRCL 75.53 LAB L501.1300 10-20 RATIO Normal BUN/CRE 18.6 LAB L501.2200 8.5-10 mg/dL Low .1 CA alert 6.4 Result Comment: Critical Result(s) Called at: 07:21:19 08/13/2018 by: Urszula Rollins LAB L501.5300 136-145 mmol/L Normal NA 139 LAB L501.5600 3.5-5.1 mmol/L Normal K 3.8 LAB L501.5900 98-107 mmol/L Normal CL 100 LAB L501.6100 21.0-32.0 mmol/L Normal CO2 27.0 LAB L501.6200 5-15 Normal GAP 12 Performed By: #### L500.2500, L501.5200 #### [facility] [address] [place], [address] MAGNESIUM Collected: 08/13/2018 Status: F Source: [place] 6:46 AM [facility] REPOSITORY TYPE CODE TESTS RESULT OUT OF RANGE REFERENCE UNITS LAB L501.5200 1.6-2.6 mg/dL High alert MG 7.2 Result Comment: Critical Result(s) Called at: 07:21:29 08/13/2018 by: Urszula Rollins Performed By: #### L500.2500, L501.5200 #### [facility] [address] [place], [address] ECHOCARDIOGRAM COMPLETE Observed: 08/12/2018 Status: F Source: [place] 5:18 PM [facility] REPOSITORY [facility] Cardiovascular Services [address] [place] [address] Echo Complete 08/12/18 1416 MR#: [id number] Acct: [id number] Name: REI FLANAGAN Rep #: [id number] : 1985 33 From: Gilberto Suh MD Attending Dr: Phi Massey MD Status: ADM IN Ordering Dr: Gavino Haddad MD Date: 08/12/18 Location: Sex: F C Admitted: 08/12/18 Reason For Study: CHF Procedure This was a 2D Doppler, Color Flow transthoracic echocardiogram. Exam performed portable in patient room. Left Ventricle Normal size and thickness. The estimated ejection fraction is 65 %. Normal diastology for age. No regional wall motion abnormalities noted. Right Ventricle Mildly dilated right ventricle. Normal systolic function. Atria The left atrium is mildly enlarged. Normal right atrium. Normal atrial septum. Mitral Valve The mitral valve is structurally normal. No prolapse or stenosis seen. Mild (1+) mitral valve insufficiency. Tricuspid Valve Normal tricuspid valve. Mild (1+) tricuspid valve insufficiency. Right ventricular systolic pressure estimated to be 38 mmHg. Mild pulmonary hypertension. Aortic Valve Trisinus/trileaflet aortic valve. Normal aortic valve. Pulmonic Valve Normal pulmonic valve. Great Vessels Normal aortic root. Normal arch. Normal inferior vena cava. Inferior vena cava collapse with sniff. Pericardium/Pleural No pericardial effusion. MMode/2D Measurements AND Calculations LVIDd: 5.0 cm IVSd: 1.2 cm Ao root diam: 3.3 cm LVIDs: 3.2 cm LVPWd: 1.3 cm LA dimension: 4.4 cm RVDd: 4.0 cm FS: 35.7 % LAV(MOD-bp): 73.0 ml LVAd ap4: 38.0 cm2 SV(MOD-sp4): 79.0 ml LAV(MOD-bp) Indexed: 32.5 ml/m2 EDV(MOD-sp4): 135.4 ml LAV(MOD-sp2): 79.1 ml EDV(sp4-el): 141.0 ml LAV(MOD-sp4): 65.9 ml LVAs ap4: 21.9 cm2 ESV(MOD-sp4): 56.4 ml ESV(sp4-el): 58.5 ml EF(MOD-sp4): 58.4 % EF(sp4-el): 58.5 % SV(sp4-el): 82.5 ml LA A4 area: 21.8 cm2 RA A4 area: 19.6 cm2 Time Measurements MV dec time: 0.23 sec Doppler Measurements AND Calculations MV E max chuy: 135.5 cm/sec Lat Peak E' Chuy: 11.1 cm/sec Med Peak E' Chuy: 8.5 cm/sec MV A max chuy: 68.9 cm/sec E/E' lat: 12.3 E/E' med: 16.0 MV E/A: 2.0 Ao V2 max: 181.3 cm/sec LV V1 max: 134.9 cm/sec PA V2 max: 137.5 cm/sec Ao max P.2 mmHg LV V1 max P.3 mmHg PI end-d chuy: 106.6 cm/sec TR max chuy: 284.8 cm/sec TR max P.4 mmHg Interpretation Summary The estimated ejection fraction is 65 %. Normal diastology for age. The left atrium is mildly enlarged. Normal size and thickness. Mildly dilated right ventricle. Mild (1+) mitral valve insufficiency. Mild (1+) tricuspid valve insufficiency. Right ventricular systolic pressure estimated to be 38 mmHg. Mild pulmonary hypertension. Compared to echo report dated 07/20/2011, LV function has remained the same, but RVSP has increased from 24 to 38 mm Hg. Ordering Physician: Gavino Haddad Referring Physician: MEGGAN BROUSSARD Performed By: Noni Toro RDCS 08/12/181717 Date Gilberto Suh MD CC: Meggan Broussard; Gavino Haddad MD; Phi Massey MD Date Dictated: 08/12/18 1416 Date Transcribed: 08/12/181717 Director Design: Signed VENOUS DUPLEX LOWER Observed: 08/12/2018 Status: F Source: [place] EXTREMITY 3:39 PM [facility] REPOSITORY [facility] Cardiovascular Services [address] [place] [address] Venous Duplex US - Luke Extrem 08/12/18 1014 MR#: [id number] Acct: [id number] Name: REI FLANAGAN Rep #: [id number] : 1985 33 From: Salbador Rodrigues MD Attending Dr: Phi Massey MD Status: ADM IN Ordering Dr: Gavino Haddad MD Date: 08/12/18 Location: Sex: F C Admitted: 08/12/18 Reason For Study: SOB RIGHT LEFT GSV is normal. GSV is normal. CFV is compressible, spontaneous, phasic, CFV is compressible, spontaneous, phasic, competent and demonstrates normal competent, and demonstrates normal augmentation. augmentation. FV is compressible, spontaneous, phasic, FV is compressible, spontaneous, phasic, competent and demonstrates normal competent and demonstrates normal augmentation. augmentation. POP V is compressible, spontaneous, phasic, POP V is compressible, spontaneous, phasic, competent and demonstrates normal competent and demonstrates normal augmentation. augmentation. T/P Trunk is compressible. T/P Trunk is compressible. PTV is compressible. PTV is compressible. RT PerV is compressible. LT PerV is compressible. Procedure Exam performed portable in patient room. The exam was diagnostic. A preliminary report was called and/or faxed to the pt's RN. <> Interpretation Summary Deep veins of the lower extremities are bilaterally patent and compressible segmentally. There is no evidence of deep vein thrombosis on either side. Valvular competence appears intact within the proximal deep venous systems bilaterally. The greater saphenous veins appear bilaterally patent and compressible segmentally. Ordering Physician: Gavino Haddad Performed By: Jhoan Trujillo, RVT 08/12/18 1538 Date Salbador Rodrigues MD CC: Meggan Broussard; Gavino Haddad MD; Phi Massey MD Date Dictated: 08/12/18 1014 Date Transcribed: 08/12/18 153 Director Design: Signed CONSULTATION Observed: 08/12/2018 Status: F Source: [place] 12:50 PM [facility] REPOSITORY [facility] Medical Records Department [address] [place] [address] Consultation 08/12/18 0754 MR#: [id number] Acct: [id number] Name: REI FLANAGAN Rep #: [id number] : 1985 33 From: Gavino Haddad MD PCP: Meggan Broussard Status: ADM IN Location: [id number] Problem List (1) CHF (congestive heart failure) Status: Acute (2) Hypertensive crisis Status: Acute (3) delivery delivered Status: Chronic (4) Chronic hypertension with superimposed preeclampsia Status: Chronic Reason for Consult Date of Consultation: 08/12/18 Reason for Consultation: Chest pain and shortness of breath History of Present Illness: The patient is a 33 year old F who underwent section on 08/03/18 who presented to the emergency department on 08/11/2018 with chest pain and shortness of breath. Patient was apparently diagnosed with preeclampsia prior to her delivery of note she did have hypertension is on labetalol 300 mg p.o. twice daily. Hospitalist service was consulted to assist with management of patient markedly elevated systolic blood pressure of greater than 200 on admission. On further questioning patient admits did admit to increasing swelling involving both lower extremities as well as dyspnea with minimal exertion Past Medical History Past Medical History (Chronic Problems): Chronic Problems Chronic hypertension with superimposed preeclampsia (Chronic) delivery delivered (Chronic) Previous section complicating , with delivery (Chronic) Allergies Sulfa (Sulfonamide Antibiotics) Adverse Reaction (Verified 08/12/18 02:31) Vomiting Home Medications: Ambulatory Orders Medication Instructions Recorded Docusate Sodium [Colace] 100 mg PO BID PRN PRN #60 capsule 08/03/18 Ibuprofen 600 mg PO 4X/DAY #30 tab 08/06/18 Smoking Status: Never smoker - *Family History Maternal History Items: Hypertension Review of Systems Constitutional: Denies: Anorexia, Chills, Fever, Night Sweats, Weight Change HEENT: Denies: Head Aches, Sinus Congestion, Sinus Drainage Cardiovascular: Reports: Chest Pain, Edema. Denies: Orthopnea, Palpitations Respiratory: Reports: Shortness of Breath. Denies: Cough Gastrointestinal: Denies: Abdominal Pain, Hematemesis, Hematochezia, Nausea, Melena, Vomiting Genitourinary: Denies: Dysuria, Frequency, Hematuria, Urgency Musculoskeletal: Denies: Joint Pain, Joint Tenderness Skin: Denies: Rash Neurological: Denies: Focal weakness, Numbness, Tingling Psychiatric: Denies: Homicidal Ideations, Suicidal Ideations Hematologic/ Lymphatic: Denies: Easy Bruising, Easy Bleeding Patient Problems: Active and Suspected Problems CHF (congestive heart failure) (Acute) Hypertensive crisis (Acute) Objective: GENERAL: cooperative, dyspneic at rest HEENT: Atraumatic; moist oral mucosa EYES; Anicteric, Normal Conjunctiva NECK; supple, normal thyroid, no distended JVD. RESPIRATORY: Diminished to auscultation bilaterally, CARDIOVASCULAR: Regular S1 S2, no audible murmurs GI: soft, non-tender, normoactive bowel sounds, : No Renal angle tenderness; EXTREMITIES: Bilateral pedal edema edema, no clubbing, no cyanosis. MUSCULOSKELETAL: No Joint Tenderness; no muscle waisting NEURO: Awake; no lateralizing signs. SKIN: No Rash PSYCH; Normal affect - Physical Exam Vital Signs Temp Pulse Resp BP Pulse Ox 98.1 F 90 24 H 157/77 H 97 08/12/18 07:35 08/12/18 07:35 08/12/18 07:35 08/12/18 07:35 08/12/18 07:51 Oxygen Flow Rate (L/min) 2 Oxygen Delivery Method Nasal Cannula Weight: 128.82 kg Body Mass Index (BMI) 50.3 Intake and Output for Last 24 Hours Intake Total 799 / 799 Output Total 700 / 700 Balance 99 / 99 Laboratory Tests Past 24 Hrs Assessment/Plan All Active Problems 37 weeks gestation of (Acute) CHF (congestive heart failure) (Acute) Hypertensive crisis (Acute) Patient is a 33-year-old lady who underwent section on 08/03/2017 presented with chest pain, shortness of breath and markedly elevated blood pressure 1. Acute hypertensive crisis: Patient has been admitted to the OB unit. Patient did receive IV Vasotec as well as hydralazine and labetalol. Did resume her home labetalol dose at 100 mg p.o. 3 times daily, also added hydralazine 25 mg p.o. twice daily 2. Shortness of breath do suspect peripartum CHF 2D echo was ordered for EF assessment. Did rule out pulmonary embolism with CTA of the chest 3. Status post section on 08/03/2018 postop management deferred to primary service 4. Morbid obesity with BMI of 50.3 lifestyle modification including weight loss advised Code Visit Office Visits / Consults: 32189 IP Consult L5 08/12/18 1250 <Electronically signed by Gavino Haddad MD> Date Gavino Haddad MD Cosigner Signature (if applicable): Date CC: Meggan Broussard Signed EMERGENCY DEPARTMENT Observed: 08/12/2018 Status: F Source: [place] SUMMARY 8:56 AM [facility] REPOSITORY [facility] Medical Records Department [address] [place] [address] Emergency Department Summary 08/12/18 0840 MR#: [id number] Acct: [id number] Name: REI FLANAGAN Rep #: [id number] : 1985 33 From: Ranjeet Mendez MD PCP: Meggan Broussard Status: ADM IN - ER Visit Summary Date of Service: 08/12/18 Chief Complaint: Chest pain shortness of breath History of Present Illness: The patient is a 33 F presenting for evaluation secondary chest pain shortness of breath. Patient is couple of days from a section on 08/03. Patient states that her was complicated by preeclampsia. Patient states that she since delivery has been on 600 mg of labetalol 3 times a day. Patient reports that today she started to have chest pain, and since her discharge she is actually had shortness of breath and edema. Patient states that chest pain is worse with breathing, and is not associated with any sort of infectious signs or symptoms such as fever or cough. Patient denies any visual changes numbness weakness lightheadedness or seizure activity. Review of systems otherwise negative. Physical Examination: Blood pressure notable for a elevated pressure of 234/127. Well-nourished female no acute distress. Head normocephalic. Moist mucous membranes. No JVD. PRL, EOMI no evidence of changes on endoscopy. Heart regular rate and rhythm, lungs clear, abdomen soft nontender. Peripheral edema +1 and symmetric. Skin normal color no rash. Patient was alert and oriented. Normal strength and sensation. Patellar reflexes are 3+ and bilaterally symmetric, Achilles are 2 some bilaterally symmetric. Test Results: EKG shows sinus rate of [address] segments normal T waves. CBC chemistry liver LDH and troponin studies are found to be unremarkable. Emergency Department Course and Treatment: Patient presented for evaluation secondary to elevated blood pressure. Patient is in the early stage and I believe this to be preeclampsia. Patient was given labetalol in the emergency department. I discussed patient's case with HEARING AID TECHNICIAN on-call Dr. Massey and we are in agreement that the patient should be started on a magnesium drip. Ultimately I was able to bring the patient's blood pressure down to 184/100. Patient will be admitted to the [facility] at this time. Disposition: Admission Impression: 1. Preeclampsia, severe Critical care time 40 minutes This note was generated with Cu[employer] dictation software. It may contain incorrect words, spelling, and punctuation that were not noted in review of the chart prior to signing ED Disposition - Plan for ED Patient: Disposition: Acute Care Hospital [facility] Chief Complaint: Chest Pain What to do if you have Problems For any increased pain, shortness of breath, bleeding, nausea or vomiting, chest pain, or any unexpected problems, contact your Primary Care Provider. Call [facility] ([phone]) or report to the closest Emergency Room. Call 911 if necessary. 08/12/18 0856 <Electronically signed by Ranjeet Mendez MD> Date Ranjeet Mendez MD Cosigner Signature (If Indicated): Date CC: Meggan Broussard HISTORY AND PHYSICAL Observed: 08/12/2018 Status: F Source: [place] EXAM 8:13 AM [facility] REPOSITORY [facility] Medical Records Department [address] [place] [address] History and Physical 08/12/18 0804 MR#: [id number] Acct: [id number] Name: REI FLANAGAN Rep #: [id number] : 1985 33 From: Phi Massey MD PCP: Meggan Broussard Status: ADM IN Location: [id number] History and Physical Date of Admission: 08/11/18 HPI: 33-year-old patient who delivered approximately a week ago by section with hypertension and -induced hypertension during labor presents with severe headache to the emergency room. PIH labs in the emergency room were normal. However, blood pressures were severely elevated requiring IV labetalol to control. Patient has been on p.o. labetalol 400 mg 3 times daily at home. Magnesium sulfate was started in the emergency room and patient brought to labor and delivery for continuation of magnesium sulfate with a presumed diagnosis of -induced hypertension. Past medical histort: patient is a non-smoker. Delivered approximately a week ago by and is breast-feeding Physical exam: HEENT normocephalic, no thyromegaly; cardiovascular shows regular rate and rhythm without murmurs or gallops; respiratory clear to auscultation x2 with no rales wheezing or rhonchi; abdomen is without distention; extremities are with 2+ pitting edema and 1-2+ clonus. Labs: No evidence of -induced hypertension. Cardiac labs okay. O2 sats 94-95% on room air. 97-98% on 2 L O2. Impression and plan: Likely -induced hypertension. Doppler studies ordered. Continuing magnesium sulfate at 2 g an hour, IV labetalol. Consider ordering cardiac echo to rule out cardiomyopathy if condition does not improve. Continuing to monitor closely. Appreciate hospitalist input. 08/12/18 0813 <Electronically signed by Phi Massey MD> Date Phi Massey MD Cosigner Signature: Date (if applicable) CC: Meggan Broussard; Phi Massey MD Signed CTA CHEST W/WO Observed: 08/12/2018 Status: F Source: [place] CONTRAST 7:54 AM [facility] REPOSITORY [facility] Imaging Services [address] [place] [address] CTA Chest W/WO Contrast MR#: [id number] Acct: [id number] Name: REI FLANAGAN Rep #: [id number] : 1985 F 33 From: Sergey Bowers MD PCP: Meggan Broussard Status: ADM IN Study: CTA Chest W/WO Contrast Date of Exam: 08/12/18 Exam# [id number] Ordering Dr: Gavino Haddad MD STUDY: CTA CHEST REASON FOR EXAM: Female, 33 years old. Hypoxia. Chest pain. History of eclampsia and recent section. RADIATION DOSAGE (If Supplied By Facility): CTDIvol = ( 16.72 ) mGy, DLP = ( 691.36 ) mGycm TECHNIQUE: The examination was performed with the intravenous administration of 100mL ml of Isovue 370 contrast material. Post-processing of the angiographic images was performed, with multiplanar reformation and 3D reconstruction. Individualized dose optimization techniques were used for this CT. COMPARISON: None. FINDINGS: Normal enhancement of the main pulmonary artery and right and left pulmonary arteries. Normal enhancement of the bilateral peripheral pulmonary arteries. There is no demonstrated pulmonary embolism. Normal thoracic aorta and visualized great vessels. There is no demonstrated aortic dissection. Normal heart and pericardium. Normal mediastinum. Normal hilar regions. Normal visualized trachea and bronchi. The lungs are well expanded. There are small bilateral pleural effusions with bibasilar atelectasis and/or infiltrations. Patchy areas of the airspace disease in the upper lobes. Increased markings with areas of confluence in the perihilar regions bilaterally suggestive of mild degree of CHF. Normal chest wall structures. Normal osseous structures. Normal visualized upper abdomen. CT/CTA Chest W/WO Contrast IMPRESSION: Small bilateral pleural effusions with bibasilar atelectasis and/or infiltration. Nonspecific airspace disease in the upper lobes and perihilar regions. This may represent CHF or fluid overload. Electronically Signed: Sergey Bowers MD at 9:18 EST Tel [phone], Service support , CC: Meggan Broussard; Gavino Haddad MD Director Design: Signed CBC W/DIFF, AUTOMATED Collected: 08/11/2018 Status: F Source: [place] 11:03 PM [facility] REPOSITORY TYPE CODE TESTS RESULT OUT OF RANGE REFERENCE UNITS LAB L100.1000 4.4-11.0 K/mm3 Normal WBC 6.5 LAB L100.1200 4.2-5.4 M/mm3 Low RBC 3.26 LAB L100.1300 12.0-15.0 g/dl Low HGB 9.9 LAB L100.1400 37-47 % Low HCT 30.8 LAB L100.1500 81-99 fL Normal MCV 94.5 LAB L100.1600 27.0-32.0 pg Normal MCH 30.4 LAB L100.1700 32-36 g/gl Normal MCHC 32.1 LAB L100.1810 11.6-14.6 % Normal RDW CV 13.5 LAB L100.1820 35.1-43.9 fl High RDW SD 46.4 LAB L100.1900 150-450 K/mm3 Normal PLT 238 LAB L100.2000 6.2-12.0 fl Normal MPV 8.9 LAB L100.2100 47-70 % High NEUT% 74.9 LAB L100.2200 19-41 % Low LY% 18.1 LAB L100.2300 0-10 % Normal MONO% 5.1 LAB L100.2400 0-5 % Normal EO% 1.2 LAB L100.2500 0-1 % Normal BASO% 0.5 LAB L100.2550 0.0-0.9 % Normal IM GRAN % 0.200 Result Comment: IG% - Immature Granulocytes (promyelocytes, myelocytes and metamyelocytes) > 1% indicates that a LEFT SHIFT is Present. LAB L100.2620 2.0-7.7 X10 3/uL Normal Absolute Neut 4.8 LAB L100.2720 0.83-4.51 X10 3/ul Normal Absolute Lymph 1.17 Performed By: #### L100.0100, L300.3900 #### [facility] [address] [place], [place], [id number] PROTHROMBIN TIME W/INR Collected: 08/11/2018 Status: F Source: [place] 11:03 PM [facility] REPOSITORY TYPE CODE TESTS RESULT OUT OF RANGE REFERENCE UNITS LAB L300.4150 11.7-14.9 SECONDS Normal PROTIME 13.1 LAB L300.4200 Normal INR 1.0 Performed By: #### L100.0100, L300.3900 #### [facility] [address] [place], [address] BASIC METABOLIC Collected: 08/11/2018 Status: F Source: [place] PROFILE (BMP) 11:03 PM [facility] REPOSITORY TYPE CODE TESTS RESULT OUT OF RANGE REFERENCE UNITS LAB L501.0100 74-106 mg/dL High GLU 113 Result Comment: Fasting Glucose result from 100 to 125 mg/dL suggests IMPAIRED HOMEOSTASIS per A.D.A. criteria. Please note revised GLUCOSE reference range effective 2017. LAB L501.1000 7-18 mg/dL High BUN 23 LAB L501.1100 0.55-1.02 mg/dL Normal CREAT,SERUM 0.89 Result Comment: The validity of the calculated GFR AND GFRAA in patients over 70 years has not been determined. Clinical correlation is essential. LAB L501.1110 >60 mL/min Normal EST GFR 77 Result Comment: Non- GFR Calc LAB L501.1115 >60 mL/min Normal EST GFR - AA 93 Result Comment: GFR Calc LAB L501.1255 ml/min Normal Estimated CRCL 72.98 LAB L501.1300 10-20 RATIO High BUN/CRE 25.8 LAB L501.2200 8.5-10 mg/dL Low .1 CA 8.2 LAB L501.5300 136-14 mmol/L Normal 5 NA 143 LAB L501.5600 3.5-5. mmol/L Normal 1 K 4.2 LAB L501.5900 98-107 mmol/L High CL 108 LAB L501.6100 21.0-3 mmol/L Normal 2.0 CO2 24.0 LAB L501.6200 5-15 Normal GAP 11 Performed By: #### L500.2500, L500.3400, L501.4010, L504.2610 #### [facility] [address] [place], [address] LIVER PROFILE Collected: 08/11/2018 Status: F Source: [place] 11:03 [facility] [place] TYPE CODE TESTS RESULT OUT OF RANGE REFERENCE UNITS LAB L501.1500 6.4-8.2 g/dL Low T PROT 6.0 LAB L501.1800 3.2-5.0 g/dL Low ALB 2.4 LAB L501.1950 2.2-4.2 g/dL Normal GLOB 3.6 LAB L501.4100 15-37 U/L Normal AST 27 LAB L501.4305 45-117 U/L High ALK P 123 LAB L501.4405 13-56 U/L High ALT 60 LAB L501.4600 0.20-1.00 mg/dL Normal T BILI 0.30 LAB L501.4700 0.00-0.30 mg/dL Normal D BILI 0.09 Performed By: #### L500.2500, L500.3400, L501.4010, L504.2610 #### [facility] [address] [place], [address] TROPONIN-I Collected: 08/11/2018 Status: F Source: [place] 11:03 PM [facility] REPOSITORY TYPE CODE TESTS RESULT OUT OF RANGE REFERENCE UNITS LAB L501.4010 <0.045 ng/mL Normal 0.020 TROPONIN-I Result Comment: TROPONIN-I EXPECTED VALUES <0.045 Negative 0.045 - 0.590 Consistent with Cardiac Damage > OR = 0.600 Critical Value Not every elevated troponin is indicative of NH. These values should be used with clinical judgement in examining the patient's clinical picture for diagnosis. To establish a diagnosis of NH versus myocardial injury, there must be a demonstrated rise and/or fall in the troponin values, in addition to ischemic symptoms, EKG changes, new regional wall motion abnormality, and/or angiographical evidence. PLEASE NOTE: REFERENCE RANGES EDITED 18 Performed By: #### L500.2500, L500.3400, L501.4010, L504.2610 #### [facility] [address] [place], [address] LDH Collected: 08/11/2018 Status: F Source: [place] 11:03 PM [facility] REPOSITORY TYPE CODE TESTS RESULT OUT OF RANGE REFERENCE UNITS LAB L504.2610 84-246 U/L Normal LDH 238 Performed By: #### L500.2500, L500.3400, L501.4010, L504.2610 #### [facility] [address] [place], [address] CHEST 1 VIEW Observed: 08/11/2018 Status: F Source: [place] (PORTABLE) 9:59 PM [facility] REPOSITORY [facility] Imaging Services [address] [place] [address] Chest 1 View (Portable) MR#: [id number] Acct: [id number] Name: REI FLANAGAN Rep #: [id number] : 1985 F 33 From: Winston Singh MD PCP: Meggan Broussard Status: PRE ER Study: Chest 1 View (Portable) Date of Exam: 08/11/18 Exam# [id number] Ordering Dr: Ranjeet Mendez MD STUDY: X-RAY CHEST REASON FOR EXAM: Female, 33 years old. Shortness of breath and chest pain TECHNIQUE: Single AP portable view of the chest. COMPARISON: None. FINDINGS: environmental monitoring specialist leads are present. There are bilateral pulmonary infiltrates in a predominantly perihilar distribution. There is no demonstrated pleural abnormality. Normal size heart. Normal mediastinum and dario. Normal visualized pulmonary arteries. Normal visualized aortic arch and descending thoracic aorta. Normal visualized thoracic spine. Normal visualized ribs, clavicles, and shoulders. There is no demonstrated abnormality of the visualized soft tissue structures of the upper abdomen. RAD/Chest 1 View (Portable) IMPRESSION: Bilateral infiltrates in a predominantly perihilar distribution suggestive of pulmonary edema. Electronically Signed: Winston Singh MD at 22:40 EST , Service support , CC: Meggan Broussard; Ranjeet Mendez Director Design: Signed DISCHARGE SUMMARY Observed: 08/06/2018 Status: F Source: [place] 8:37 AM [facility] REPOSITORY [facility] Medical Records Department [address] [place] [address] Discharge Summary 08/06/18 0834 MR#: [id number] Acct: [id number] Name: REI FLANAGAN Rep #: [id number] : 1985 33 From: Gavino Cortez MD PCP: Status: ADM IN Location: [id number] Discharge Date and Diagnosis - Problem List Patient Problems: Active and Suspected Problems Chronic hypertension with superimposed preeclampsia (Acute) 37 weeks gestation of (Acute) delivery delivered (Acute) Date of Admission: 08/03/18 Date of Discharge: 08/06/18 - Primary Discharge Diagnosis Active and Suspected Problems Chronic hypertension with superimposed preeclampsia (Acute) 37 weeks gestation of (Acute) delivery delivered (Acute) - Secondary Discharge Diagnosis Chronic Problems Previous section complicating , with delivery (Chronic) Hospital Course and Treatment Operations: - - Repeat LTCS Summary of Care Provided: The patient is a 33 year old F [admitted with worsening BPs and significant proteinuria with headache. Repeat LTCS performed without complication. Placed on magnesium sulfate prophylaxis due to preeclampsia but made uneventful PO recovery. Discharged on POD#3.] Patient Problems: Active and Suspected Problems Chronic hypertension with superimposed preeclampsia (Acute) 37 weeks gestation of (Acute) delivery delivered (Acute) - Physical Exam Vital Signs Temp Pulse Resp BP Pulse Ox 98.8 F 82 16 148/75 H 97 08/06/18 08:10 08/06/18 08:10 08/06/18 08:10 08/06/18 08:10 08/06/18 08:10 Oxygen Delivery Method Room Air Weight: 306 lb 3.553 oz Body Mass Index (BMI) 54.2 Intake and Output for Last 24 Hours Intake Total 3824 / 3824 Output Total 2105 / 2105 200 / 200 Balance 1719 / 1719 -200 / -200 Discharge Diet: No Restrictions Discharge Activity: Return to Normal Activity, May not drive while taking narcotic pain medications., May Shower May resume sexual activity in: 6 weeks Call your doctor if your incision/area has: Continuous Slow Oozing, Sudden Increased Bleeding, Increased Pain/ Swelling, Increased Redness, Foul Smelling Discharge Call your doctor if you observe: Fever of 101 or Higher, Inability to urinate, Inability to have a bowel movement, Using more than one pad per hour, Shortness of breath, Chest pain, Calf discomfort, Uncontrolled pain Suture Line Care: Avoid Pulling/Pushing Remove Dressing in (days):: 5 Cleanse incision/area with: Soap AND Water Home Medications: Medications to take at Discharge Docusate Sodium [Colace] 100 mg PO BID PRN PRN #60 capsule 08/03/18 Oxycodone [Oxyir] 5 mg PO Q6H PRN PRN 5 Days #20 tablet 08/03/18 Ferrous Sulfate 325 mg PO BID #60 tablet.dr 08/05/18 Ibuprofen 600 mg PO 4X/DAY #30 tab 08/06/18 Labetalol [Trandate (Beta José Miguel)] 600 mg PO TID #90 tab 08/06/18 Oxycodone [Oxyir] 5 - 10 mg PO Q4H PRN PRN 7 Days #28 tab 08/06/18 Following Prescrptions Were Given to Patient: Oxycodone [Oxyir] 5 - 10 mg PO Q4H PRN PRN 7 Days #28 tab PRN Reason: Mod-Severe Pain (4-07/16) Oxycodone [Oxyir] 5 mg PO Q6H PRN PRN 5 Days #20 tablet PRN Reason: Severe Pain (6-07/16) Docusate Sodium [Colace] 100 mg PO BID PRN PRN #60 capsule PRN Reason: Constipation Ferrous Sulfate 325 mg PO BID #60 tablet. Labetalol [Trandate (Beta José Miguel)] 600 mg PO TID #90 tab Ibuprofen 600 mg PO 4X/DAY #30 tab Please Follow Up With: Gavino Cortez MD - Blood pressure, incision check When: 7-10 days Please Follow Up With: Gavino Cortez MD - visit When: 6 weeks Patient Instructions: Discharge Instructions for High Blood Pressure (Hypertension) Disposition: Home Minutes spent on discharge:: 15 Patient Condition:: Good Medical Necessity - Tobacco Use Smoking Status: Never smoker Meaningful Use Info Meaningful Use Diagnoses (Choose all that apply): None applicable 08/06/18 0837 <Electronically signed by Gavino Cortez MD> Date Gavino Cortez MD Cosigner Signature (if applicable): Date CC: Gavino Cortez MD Signed DISCHARGE INSTRUCTION Observed: 08/05/2018 Status: F Source: [place] 8:03 AM [facility] REPOSITORY [facility] Medical Records Department [address] [place] [address] Instructions for Home/Discharge Instructions 08/03/18 2147 MR#: [id number] Acct: [id number] Name: REI FLANAGAN Rep #: [id number] : 1985 33 From: Ana Lujan MD PCP: Status: ADM IN ADDENDUM by Ana Spivey MD on 08/05/18 at 0803 Take an iron supplement, ferrous sulfate 325mg, by mouth twice daily. This has been sent to your pharmacy. 08/05/18802 Date Ana Spivey MD cc: * Signed Discharge Diet: No Restrictions Discharge Activity: Return to Normal Activity, May not drive while taking narcotic pain medications., May Shower May resume sexual activity in: 6 weeks Lifting Restrictions: 10-20 lb Call your doctor if your incision/area has: Continuous Slow Oozing, Sudden Increased Bleeding, Increased Pain/ Swelling, Increased Redness, Foul Smelling Discharge Call your doctor if you observe: Fever of 101 or Higher, Inability to urinate, Inability to have a bowel movement, Using more than one pad per hour, Shortness of breath, Chest pain, Calf discomfort, Uncontrolled pain Suture Line Care: Avoid Pulling/Pushing Remove Dressing in (days):: 5 Cleanse incision/area with: Soap AND Water Instructions: Discharge Instructions for High Blood Pressure (Hypertension) Additional Instructions: If you experience any of the following, contact your healthcare provider. * Bleeding that soaks a pad every hour for 2 hours * Fever 100.4 or higher * Unrelieved incision or abdominal pain * Swelling, redness, discharge or bleeding from your incision or episiotomy site * Your incision begins to separate * Problems urinating (including inability to urinate or burning while urinating). * Visual changes * Severe headache * Flu-like symptoms * Pain or redness in one of both of your breasts * Pain, warmth, tenderness or swelling in your legs, especially the calf area * Frequent nausea and vomiting * Symptoms of depression or anxiety If you experience any of the following, call 911 or go to the nearest Emergency Room. * Chest pain * Problems breathing * Seizure activity * Partial or complete paralysis of a body part, slurred speech, weakness or drooping of the face, or a sudden inability to walk or hold your balance Allergies/Adverse Reactions: Allergies Sulfa (Sulfonamide Antibiotics) Adverse Reaction (Verified 04/24/17 13:17) Vomiting Medications to take at Discharge Docusate Sodium [Colace] 100 mg PO BID PRN PRN #60 capsule 08/03/18 Oxycodone [Oxyir] 5 mg PO Q6H PRN PRN 5 Days #20 tablet 08/03/18 The following prescriptions were given: Oxycodone [Oxyir] 5 mg PO Q6H PRN PRN 5 Days #20 tablet PRN Reason: Severe Pain (-07/16) Docusate Sodium [Colace] 100 mg PO BID PRN PRN #60 capsule PRN Reason: Constipation Follow-Up: Call to make an appointment with your doctor for an incision check in 1-2 weeks. You will also need a 6 week post- follow up appointment. Test results from this visit will be discussed in further detail at your follow-up appointment, if applicable. Please Follow Up With: Gavino Cortez MD - Blood pressure, incision check When: 7-10 days Please Follow Up With: Gavino Cortez MD - visit When: 6 weeks 08/03/182149 <Electronically signed by Ana Spivey MD> Date Ana Spivey MD CC: CBC W/DIFF, AUTOMATED Collected: 08/05/2018 Status: F Source: [place] 6:00 AM [facility] REPOSITORY TYPE CODE TESTS RESULT OUT OF RANGE REFERENCE UNITS LAB L100.1000 4.4-11.0 K/mm3 Normal WBC 5.2 LAB L100.1200 4.2-5.4 M/mm3 Low RBC 2.85 LAB L100.1300 12.0-15.0 g/dl Low HGB 8.8 LAB L100.1400 37-47 % Low HCT 27.2 LAB L100.1500 81-99 fL Normal MCV 95.4 LAB L100.1600 27.0-32.0 pg Normal MCH 30.9 LAB L100.1700 32-36 g/gl Normal MCHC 32.4 LAB L100.1810 11.6-14.6 % Normal RDW CV 14.1 LAB L100.1820 35.1-43.9 fl High RDW SD 46.3 LAB L100.1900 150-450 K/mm3 Low PLT 123 LAB L100.2000 6.2-12.0 fl Normal MPV 9.7 LAB L100.2100 47-70 % High NEUT% 77.7 LAB L100.2200 19-41 % Low LY% 16.1 LAB L100.2300 0-10 % Normal MONO% 5.0 LAB L100.2400 0-5 % Normal EO% 0.6 LAB L100.2500 0-1 % Normal BASO% 0.2 LAB L100.2550 0.0-0.9 % Normal IM GRAN % 0.400 Result Comment: IG% - Immature Granulocytes (promyelocytes, myelocytes and metamyelocytes) > 1% indicates that a LEFT SHIFT is Present. LAB L100.2620 2.0-7.7 X10 3/uL Normal Absolute Neut 4.0 LAB L100.2720 0.83-4.51 X10 3/ul Normal Absolute Lymph 0.83 Performed By: #### L100.0100 #### [facility] [address] [place], [address] CBC-COMPLETE BLOOD CNT Collected: 08/04/2018 Status: F Source: [place] NO DIFF 7:50 AM [facility] REPOSITORY Order Comment: Comments: Day #1 Reason for Laboratory Test TYPE CODE TESTS RESULT OUT OF RANGE REFERENCE UNITS LAB L100.1000 4.4-11.0 K/mm3 Normal WBC 5.8 LAB L100.1200 4.2-5.4 M/mm3 Low RBC 3.06 LAB L100.1300 12.0-15.0 g/dl Low HGB 9.5 LAB L100.1400 37-47 % Low HCT 29.0 LAB L100.1500 81-99 fL Normal MCV 94.8 LAB L100.1600 27.0-32.0 pg Normal MCH 31.0 LAB L100.1700 32-36 g/gl Normal MCHC 32.8 LAB L100.1810 11.6-14.6 % Normal RDW CV 14.2 LAB L100.1820 35.1-43.9 fl High RDW SD 48.6 LAB L100.1900 150-450 K/mm3 Low PLT 113 LAB L100.2000 6.2-12.0 fl Normal MPV 10.0 Performed By: #### L100.0500, L350.1800 #### [facility] [address] [place], [address] SERUM CREATININE AND Collected: 08/04/2018 Status: F Source: [place] GFR 7:50 AM [facility] REPOSITORY TYPE CODE TESTS RESULT OUT OF RANGE REFERENCE UNITS LAB L501.1100 0.55-1.02 mg/dL Normal 0.77 CREAT,SERUM Result Comment: The validity of the calculated GFR AND GFRAA in patients over 70 years has not been determined. Clinical correlation is essential. LAB L501.1110 >60 mL/min Normal EST GFR 91 Result Comment: Non- GFR Calc LAB L501.1115 >60 mL/min Normal EST GFR - AA 110 Result Comment: GFR Calc LAB L501.1255 ml/min Normal Estimated CRCL 84.36 Performed By: #### L501.1105 #### [facility] [address] [place], [address] PATHOLOGY SPECIMEN OB Collected: 08/03/2018 Status: F Source: [place] 9:31 PM [facility] REPOSITORY Order Comment: Reason for Laboratory Test Placenta for Lab studies Send Specimen For (Specify): Studies @ [facility] Lab:Routine Time of Procedure: 2130 Date of Procedure: 08/03/18 Reason specimen being sent to pathology (Hx/complications): chtn with superimposed preeclampsia, 37w, repeat C/S Type of specimen: Placenta Type of procedure performed: Repeat Section TYPE CODE TESTS RESULT OUT OF RANGE REFERENCE UNITS LAB L350.1800 SEE Normal PATH. PATHOLOGY Spec. OB REPORT Result Comment: Specimen submitted to Anatomical Pathology Department for testing. Performed By: #### L100.0500, L350.1800 #### [facility] [address] [place], [address] PLACENTA Observed: 08/03/2018 Status: F Source: [place] 9:31 PM [facility] REPOSITORY Patient: REI FLANAGAN : 1985 (33/F) Acct Num: [id number] Phys: Patric VELAZQUEZ,Summer Unit Num: [id number] Loc: WP [id number] Specimen: [id number] Received: 08/04/18402 Spec Type: PLACENTA TISSUES 1 TISSUES: Placenta, NOS GROSS DESCRIPTION SPECIMEN: PLACENTA / CLINICAL INFORMATION: A. Weight: 4.04 kg B. Gestational Age: 37 weeks C. Sex: Male PLACENTAL WEIGHT (POST FIXATION): 535 gm PLACENTAL DIMENSIONS: 21 x 15 x 3 cm PLACENTAL SHAPE: Usual ovoid PLACENTAL WEIGHT FOR GESTATIONAL AGE: Within 10-99th percentile MEMBRANES - Present A. Insertion: Marginal B. Site of rupture from edge: 5 cm from edge of placental disc. C. Color of membrane: Jaime-short D. Abnormalities: None UMBILICAL CORD - Present A. Color: Jaime-short B. Insertion: Paracentral C. Length: 28 cm D. Diameter: 1.5cm E. Number of vessels: Three F. Abnormalities: None PLACENTAL DISC - Present A. Color of surface: Jaime-short B. surface abnormalities: None C. Maternal cotyledons: Intact with minimal tears. Maternal surface is partly disrupted in one-half of the placenta. No obvious clots are identified in this portion. D. Attached retro placental clot: No clot E. Cut surface: Dark red and spongy F. Lesions: Sections reveal two jaime, hemorrhagic and indurated areas measuring 1.5 and 2 cm in greatest dimension. G. Separate clot: Absent SECTIONS SUBMITTED: 1. Membrane roll 2. Cord, maternal end 3. Cord, end, smaller lesion 4. Placental disc, and maternal surfaces, larger lesion 5. Placental disc, and maternal surfaces 6. Placental disc, and maternal surfaces :emmanuel 08/05/18 TC:5 CPT: 74137 HEADER OPERATION: Repeat section PRE-OP DIAGNOSIS: CHTN with superimposed preeclampsia, 37 weeks TISSUE SUBMITTED: Placenta MICROSCOPIC DESCRIPTION Slides are reviewed. MICROSCOPIC DIAGNOSIS Placenta: Placental disc - third trimester placenta (535 gm). Focal area of intraparenchymal hemorrhage (1.5 and 2 cm in greatest dimension). Membranes - no pathologic diagnosis. Umbilical cord - three blood vessels and no pathologic diagnosis. SIMA:emmanuel 08/06/18 Signed Ar Powell 08/06/18 <signature on file> Performed By: #### PPLAC #### [facility] [address] [place], [id number] OPERATIVE REPORT Observed: 08/03/2018 Status: F Source: [place] 9:29 PM [facility] REPOSITORY [facility] Medical Records Department [address] [place] [id number] Operative Report 08/03/18 2116 MR#: [id number] Acct: [id number] Name: REI FLANAGAN Rep #: [id number] : 1985 33 From: Ana Lujan MD PCP: Status: ADM IN Y Location: [place] [id number] - Problem List (1) Chronic hypertension with superimposed preeclampsia Status: Acute (2) 37 weeks gestation of Status: Acute (3) delivery delivered Status: Acute Delivery Classification: EVANS Final RICHARD: 08/27/18 Final RICHARD Source: US <20 weeks Gestational age: 36 Weeks and 4 Days doctor who attended delivery (if requested by OB): Ml Rowe Indications: 33year old @ 37 4/7wga with history of 2 prior sections admitted with chronic hypertension superimposed preeclampsia for repeat section. Risks, benefits, indications reviewed and informed consent obtained. Indications for : Repeat Elective , - - chronic hypertension with superimposed preeclampsia Description of Procedure: Patient was brought to the OR and sign in performed. Spinal analgesia was placed and the patient repositioned into dorsal supine position with left lateral tilt. FHR obtained 140 bpm. The abdominal retraction system was applied and sharma catheter placed. Time out performed. The abdomen was prepped and draped in sterile fashion and the spinal found to be adequate. A Pfannenstiel incision was made and brought down to incise the rectus fascia at the midline and the fascial incision extended laterally. The superior leaflet of the rectus fascia was bluntly and sharply dissected from the underlying muscle. In similar fashion the inferior rectus fascia was dissected from the underlying muscle. The rectus muscles were sharply and the midline and the peritoneum sharply entered. The peritoneal incision was extended. The bladder blade was placed into the abdomen. The vesicouterine peritoneum was identified and bladder flap created. The bladder blade was repositioned. A low transverse hysterotomy was performed using the Metzumbaum scissors. The hysterotomy was bluntly extended and the head brought to the hysterotomy. A vigorous male infant delivered. The cord was doubly clamped and cut after approximately 60 seconds. The was passed to the awaiting Pediatric Hospitalist. The placenta was expressed from the uterus and appeared intact on inspection. The uterus was cleared of debris. The hysterotomy was repaired using 0 Vicryl. A second imbricating layer was placed for additional hemostasis. There was however few sites of bleeding from venous sinuses. Several figure of eight sutures were placed with hemostasis attained. The peritoneum was reapproximated using 2-0 Vicryl. The rectus fascia was reapproximated using 0 Vicryl. The subcutaneous tissue was reapproximated in 3 layers using 0- Vicryl, 0-Vicryl and 3-0Vicryl, respectively. The skin was closed using 4-0 Monocryl by the [place]IL [employer]AY TECHNICIAN under my supervision. The patient was transferred to the recovery room without complication. She tolerated the procedure well. Sponge, needle and instrument counts were correct x 2. Infant 4040g Amniotic Membrane Rupture Type: Artificial Amniotic Fluid Description: Clear Placenta Disposition: Sent to Pathology Specimen(s) sent to pathology: placenta Drain: Sharma to straight drain Fluids Replaced: 2000ml Cord Entanglement: None Nuchal Cord Compression: Without compression Cord Vessel Description: 3 Vessels Esitmated Blood Loss (ml): 600 Gender: Male (1 minute): 9 (5 minute): 9 Delayed cord clamping: Yes Pre-op Antibiotic Given: - - Ancef 3g IV x 1 Pt instructed on risks of surgery: Bleeding, Anesthesia Risks, Infection, Need for Future C-Sections, Injury to surrounding structure(s) including bowel and bladder Complications: None - Admit VTE Documentation VTE Present on Admission: No VTE Mechan Device Prophylaxis: SCD's VTE Pharm Prophylaxis ordered?: No 08/03/182128 <Electronically signed by Ana Spivey MD> Date Ana Spivey MD CC: Ana Spivey MD Signed PROTEIN+CREATININE Collected: Status: F Source: [place] RATIO,URINE 08/03/2018 7:30 PM [facility] REPOSITORY TYPE CODE TESTS RESULT OUT OF RANGE REFERENCE UNITS LAB L501.1200 NO RANGE EST. mg/dL Normal UR CREAT 133.00 LAB L501.1930 <11.9 mg/dL High 109.2 PROTEIN,UR.R AN. LAB L501.1940 0-200 mg/g CRE High PROT:CRE 821 RATIO Performed By: #### L501.0900 #### [facility] [address] [place], [place], [id number] CBC-COMPLETE BLOOD CNT Collected: 08/03/2018 Status: F Source: [place] NO DIFF 7:10 PM [facility] REPOSITORY TYPE CODE TESTS RESULT OUT OF RANGE REFERENCE UNITS LAB L100.1000 4.4-11.0 K/mm3 Normal WBC 5.7 LAB L100.1200 4.2-5.4 M/mm3 Low RBC 3.73 LAB L100.1300 12.0-15.0 g/dl Low HGB 11.5 LAB L100.1400 37-47 % Low HCT 35.1 LAB L100.1500 81-99 fL Normal MCV 94.1 LAB L100.1600 27.0-32.0 pg Normal MCH 30.8 LAB L100.1700 32-36 g/gl Normal MCHC 32.8 LAB L100.1810 11.6-14.6 % Normal RDW CV 14.0 LAB L100.1820 35.1-43.9 fl High RDW SD 48.3 LAB L100.1900 150-450 K/mm3 Low PLT 149 LAB L100.2000 6.2-12.0 fl Normal MPV 10.3 Performed By: #### L100.0500 #### [facility] [address] [facility] [place], [place], [id number] PROTHROMBIN TIME W/INR Collected: 08/03/2018 Status: F Source: [place] 7:10 PM [facility] REPOSITORY TYPE CODE TESTS RESULT OUT OF RANGE REFERENCE UNITS LAB L300.4150 11.7-14.9 SECONDS Normal PROTIME 14.6 LAB L300.4200 Normal INR 1.1 Performed By: #### L300.3900, L300.4310 #### [facility] [address] [place], [place], [address] PARTIAL THROMBOPLAST Collected: 08/03/2018 Status: F Source: [place] TIME 7:10 PM [facility] REPOSITORY TYPE CODE TESTS RESULT OUT OF RANGE REFERENCE UNITS LAB L300.4310 24.1-36.2 Seconds Normal PTT 27.7 Performed By: #### L300.3900, L300.4310 #### [facility] [address] [place], [place], [address] COMPREHENSIVE METABOLIC Collected: 08/03/2018 Status: F Source: [place] PROFIL 7:10 PM [facility] REPOSITORY TYPE CODE TESTS RESULT OUT OF RANGE REFERENCE UNITS LAB L501.0100 74-106 mg/dL Low GLU 59 Result Comment: Please note revised GLUCOSE reference range effective 2017. LAB L501.1000 7-18 mg/dL Normal BUN 8 LAB L501.1100 0.55-1.02 mg/dL Low CREAT,SERUM 0.31 Result Comment: The validity of the calculated GFR AND GFRAA in patients over 70 years has not been determined. Clinical correlation is essential. LAB L501.1110 >60 mL/min Normal EST GFR 258 Result Comment: Non- GFR Calc LAB L501.1115 >60 mL/min Normal EST GFR - AA 312 Result Comment: GFR Calc LAB L501.1255 ml/min Normal Estimated CRCL 209.53 LAB L501.1300 10-20 RATIO High BUN/CRE 25.7 LAB L501.1500 6.4-8. g/dL Low 2 T PROT 3.5 LAB L501.1800 3.2-5. g/dL Low 0 ALB 1.3 LAB L501.1950 2.2-4. g/dL 2 GLOB Normal 2.2 LAB L501.2000 0.9-2. RATIO Low 4 A/G 0.6 LAB L501.2200 8.5-10 mg/dL Low .1 CA 7.2 LAB L501.4100 15-37 U/L Low AST 11 LAB L501.4305 45-117 U/L ALK P Normal 58 LAB L501.4405 13-56 U/L ALT Normal 13 LAB L501.4600 0.20-1 mg/dL Low .00 T BILI < 0.10 LAB L501.5300 136-14 mmol/L 5 NA Normal 139 LAB L501.5600 3.5-5. mmol/L 1 K Normal 4.1 LAB L501.5900 98-107 mmol/L High CL 108 LAB L501.6100 21.0-3 mmol/L Low 2.0 CO2 16.0 LAB L501.6200 5-15 GAP Normal 15 Performed By: #### L500.4050, L501.1400 #### [facility] [address] [place], [place], [address] URIC ACID Collected: 08/03/2018 Status: F Source: [place] 7:10 PM [facility] REPOSITORY TYPE CODE TESTS RESULT OUT OF RANGE REFERENCE UNITS LAB L501.1400 2.6-6.0 mg/dL Normal URIC 3.1 Result Comment: The drugs N-Acetylcysteine and Metamizole may falsely depress this assay. Performed By: #### L500.4050, L501.1400 #### [facility] [address] [facility] [place], [place], [id number] TYPE AND SCREEN Collected: 08/03/2018 Status: F Source: [place] 7:10 PM [facility] REPOSITORY Order Comment: Reason for Type AND Screen/Red Cells: SURGERY Type of Surgery: TYPE CODE TESTS RESULT OUT OF RANGE REFERENCE UNITS LAB B10.0800 A Normal BLOOD TYPE GEL POSITIVE LAB B100.4000 Normal Antibody NEGATIVE Screen Performed By: #### B101.7450 #### [facility] [address] [place], [place], [address] PROTHROMBIN TIME W/INR Collected: 08/01/2018 Status: F Source: [place] 11:39 AM [facility] REPOSITORY TYPE CODE TESTS RESULT OUT OF RANGE REFERENCE UNITS LAB L300.4150 11.7-14.9 SECONDS Normal PROTIME 12.8 LAB L300.4200 Normal INR 1.0 Performed By: #### L300.3900, L300.4310 #### [facility] [address] [place], [place], [address] PARTIAL THROMBOPLAST Collected: 08/01/2018 Status: F Source: [place] TIME 11:39 AM [facility] REPOSITORY TYPE CODE TESTS RESULT OUT OF RANGE REFERENCE UNITS LAB L300.4310 24.1-36.2 Seconds Normal PTT 25.1 Performed By: #### L300.3900, L300.4310 #### [facility] [address] [place], [address] CBC-COMPLETE BLOOD CNT Collected: 08/01/2018 Status: F Source: [place] NO DIFF 11:39 AM [facility] REPOSITORY TYPE CODE TESTS RESULT OUT OF RANGE REFERENCE UNITS LAB L100.1000 4.4-11.0 K/mm3 Normal WBC 5.9 LAB L100.1200 4.2-5.4 M/mm3 Low RBC 3.64 LAB L100.1300 12.0-15.0 g/dl Low HGB 11.4 LAB L100.1400 37-47 % Low HCT 33.8 LAB L100.1500 81-99 fL Normal MCV 92.9 LAB L100.1600 27.0-32.0 pg Normal MCH 31.3 LAB L100.1700 32-36 g/gl Normal MCHC 33.7 LAB L100.1810 11.6-14.6 % Normal RDW CV 13.6 LAB L100.1820 35.1-43.9 fl High RDW SD 44.6 LAB L100.1900 150-450 K/mm3 Low PLT 149 LAB L100.2000 6.2-12.0 fl Normal MPV 10.4 Performed By: #### L100.0500 #### [facility] [address] [place], [place], [address] SERUM CREATININE AND Collected: 08/01/2018 Status: F Source: [place] GFR 11:39 AM [facility] REPOSITORY TYPE CODE TESTS RESULT OUT OF RANGE REFERENCE UNITS LAB L501.1100 0.55-1.02 mg/dL Normal 0.79 CREAT,SERUM Result Comment: The validity of the calculated GFR AND GFRAA in patients over 70 years has not been determined. Clinical correlation is essential. LAB L501.1110 >60 mL/min Normal EST GFR 88 Result Comment: Non- GFR Calc LAB L501.1115 >60 mL/min Normal EST GFR - AA 106 Result Comment: GFR Calc Performed By: #### L501.1105, L501.1400, L501.4100, L501.4405 #### [facility] [address] [place], [address] URIC ACID Collected: 08/01/2018 Status: F Source: [place] 11:39 AM [facility] REPOSITORY TYPE CODE TESTS RESULT OUT OF RANGE REFERENCE UNITS LAB L501.1400 2.6-6.0 mg/dL Normal URIC 5.1 Result Comment: The drugs N-Acetylcysteine and Metamizole may falsely depress this assay. Performed By: #### L501.1105, L501.1400, L501.4100, L501.4405 #### [facility] [address] [place], [address] AST(SGOT) Collected: 08/01/2018 Status: F Source: [place] 11:39 AM [facility] REPOSITORY TYPE CODE TESTS RESULT OUT OF RANGE REFERENCE UNITS LAB L501.4100 15-37 U/L Normal AST 15 Performed By: #### L501.1105, L501.1400, L501.4100, L501.4405 #### [facility] [address] [place], [address] ALANINE AMINOTRANSFERAS Collected: 08/01/2018 Status: F Source: [place] (SGPT) 11:39 AM [facility] REPOSITORY TYPE CODE TESTS RESULT OUT OF RANGE REFERENCE UNITS LAB L501.4405 13-56 U/L Normal ALT 20 Performed By: #### L501.1105, L501.1400, L501.4100, L501.4405 #### [facility] [address] [place], [address] PROTEIN, URINE Collected: 08/01/2018 Status: F Source: [place] (RANDOM) 11:39 AM [facility] REPOSITORY TYPE CODE TESTS RESULT OUT OF RANGE REFERENCE UNITS LAB L501.1930 <11.9 mg/dL High 44.3 PROTEIN,UR.R AN. Performed By: #### L501.1930, L502.0250 #### [facility] [address] [place], [address] MICROALB:CREAT Collected: 08/01/2018 Status: F Source: [facility] UR 11:39 AM [facility] REPOSITORY TYPE CODE TESTS RESULT OUT OF RANGE REFERENCE UNITS LAB L501.1200 NO RANGE EST. mg/dL Normal UR CREAT 178.00 LAB L502.0500 NO RANGE EST. mg/L Normal 155.0 MICROALBUMIN ,UR LAB L502.0600 <30 mg/g CRE mg/g CRE High 87.1 MALB:CREAT Performed By: #### L501.1930, L502.0250 #### [facility] [address] [place], [place], [address] PROGRESS Observed: 07/24/2018 Status: COMPLETED Source: [place] 11:53 AM [facility] REPOSITORY HNO ID: [id number] Author: Dorothy Mantilla) Bob Service: (none) Author Type: Physician Bar Gauger And Lubricator Tender Type: Progress Notes Filed: 07/24/2018 1:32 PM Note Text: Subjective HPI Patient presents with chief complaint of left ear pain. She has currently 36 weeks . She has had some nasal congestion. No cough. No fever. No cold hearing. No recent swimming. Denies vomiting or abdominal pain. Review of Systems HENT: Positive for ear pain. All other systems reviewed and are negative. No past medical history on file. Current Outpatient Prescriptions: aspirin, enteric coated (ASPIRIN, ENTERIC COATED) 81 mg EC tablet Take 81 mg by mouth once daily. Disp: Rfl: FOLIC ACID ORAL Take by mouth. Disp: Rfl: ferrous sulfate (IRON ORAL) Take by mouth. Disp: Rfl: LABETALOL HCL (LABETALOL ORAL) Take by mouth. Disp: Rfl: amoxicillin (AMOXIL) 875 mg tablet Take 1 tablet by mouth twice daily for 10 days. Disp: 20 tablet Rfl: 0 sertraline (ZOLOFT) 50 mg tablet Take 50 mg by mouth once daily. Disp: Rfl: MEDICATION, NON-DATABASE OTC allergy med Disp: Rfl: clotrimazole-betamethasone (LOTRISONE) cream Apply to affected area.Use twice daily until rash resolved. Disp: 45 g Rfl: 0 topiramate (TOPAMAX) 100 mg ORAL tablet Take 1 tablet by mouth once daily. Disp: Rfl: 0 No current facility-administered medications for this visit. No past surgical history on file. No family history on file. Social History Substance Use Topics - Smoking status: Never Smoker - Smokeless tobacco: Never Used - Alcohol use Yes Comment: occasionally BP 130/80 Pulse 82 Temp 37.1 ?C (98.7 ?F) (Right Tympanic) Resp 16 Wt 131.1 kg (289 lb) BMI 51.19 kg/m? Objective Physical Exam Constitutional: She is oriented to person, place, and time and well-developed, well-nourished, and in no distress. HENT: Head: Normocephalic and atraumatic. Right Ear: Tympanic membrane, external ear and ear canal normal. Left Ear: External ear and ear canal normal. Tympanic membrane is erythematous and bulging. A middle ear effusion is present. Nose: Mucosal edema and rhinorrhea present. Mouth/Throat: Uvula is midline, oropharynx is clear and moist and mucous membranes are normal. Neck: Normal range of motion. Neck supple. Cardiovascular: Normal rate, regular rhythm and normal heart sounds. Pulmonary/Chest: Effort normal and breath sounds normal. Neurological: She is alert and oriented to person, place, and time. Skin: Skin is warm and dry. Psychiatric: Affect and judgment normal. Nursing note and vitals reviewed. ASSESSMENT/PLAN: 1. Acute otitis media, left - ICD9: 382.9, ICD10: H66.92 - Will begin treatment with Amoxicillin for 10 days - Supportive care with plenty of fluids, rest, and analgesia prn. - Follow up in one week if symptoms persist or worsen. ENRIKE Ludwig Observed: 07/24/2018 Status: COMPLETED Source: [place] 11:45 AM [facility] REPOSITORY Office Visit (WSTR) REI FLANAGAN ([id number]) 1985 F Date Time Provider Department 07/24/18 11:45 AM DOROTHY RICKETTS) [facility] During your visit today, we recorded the following information about you: Temperature Pulse Respiration Blood pressure 98.7 degrees 82/minute 16/minute 130/80 Weight 131.1 kg Dorothy Ricketts PA-C 07/24/2018 1:32 PM Signed Subjective HPI Patient presents with chief complaint of left ear pain. She has currently 36 weeks . She has had some nasal congestion. No cough. No fever. No cold hearing. No recent swimming. Denies vomiting or abdominal pain. Review of Systems HENT: Positive for ear pain. All other systems reviewed and are negative. No past medical history on file. Current Outpatient Prescriptions: aspirin, enteric coated (ASPIRIN, ENTERIC COATED) 81 mg EC tablet Take 81 mg by mouth once daily. Disp: Rfl: FOLIC ACID ORAL Take by mouth. Disp: Rfl: ferrous sulfate (IRON ORAL) Take by mouth. Disp: Rfl: LABETALOL HCL (LABETALOL ORAL) Take by mouth. Disp: Rfl: amoxicillin (AMOXIL) 875 mg tablet Take 1 tablet by mouth twice daily for 10 days. Disp: 20 tablet Rfl: 0 sertraline (ZOLOFT) 50 mg tablet Take 50 mg by mouth once daily. Disp: Rfl: MEDICATION, NON-DATABASE OTC allergy med Disp: Rfl: clotrimazole-betamethasone (LOTRISONE) cream Apply to affected area.Use twice daily until rash resolved. Disp: 45 g Rfl: 0 topiramate (TOPAMAX) 100 mg ORAL tablet Take 1 tablet by mouth once daily. Disp: Rfl: 0 No current facility-administered medications for this visit. No past surgical history on file. No family history on file. Social History Substance Use Topics - Smoking status: Never Smoker - Smokeless tobacco: Never Used - Alcohol use Yes Comment: occasionally BP 130/80 Pulse 82 Temp 37.1 ?C (98.7 ?F) (Right Tympanic) Resp 16 Wt 131.1 kg (289 lb) BMI 51.19 kg/m? Objective Physical Exam Constitutional: She is oriented to person, place, and time and well-developed, well-nourished, and in no distress. HENT: Head: Normocephalic and atraumatic. Right Ear: Tympanic membrane, external ear and ear canal normal. Left Ear: External ear and ear canal normal. Tympanic membrane is erythematous and bulging. A middle ear effusion is present. Nose: Mucosal edema and rhinorrhea present. Mouth/Throat: Uvula is midline, oropharynx is clear and moist and mucous membranes are normal. Neck: Normal range of motion. Neck supple. Cardiovascular: Normal rate, regular rhythm and normal heart sounds. Pulmonary/Chest: Effort normal and breath sounds normal. Neurological: She is alert and oriented to person, place, and time. Skin: Skin is warm and dry. Psychiatric: Affect and judgment normal. Nursing note and vitals reviewed. ASSESSMENT/PLAN: 1. Acute otitis media, left - ICD9: 382.9, ICD10: H66.92 - Will begin treatment with Amoxicillin for 10 days - Supportive care with plenty of fluids, rest, and analgesia prn. - Follow up in one week if symptoms persist or worsen. Dorothy Ricketts PA-C Referring Provider: SELF [200] Allergies As of Date: 07/24/2018 Noted Allergy Reaction SULFA (SULFONAMIDE ANTIBIOTICS) 08/26/2006 11 - Vomiting Date Reviewed: 07/24/2018 Reviewed by: Agustina Krause Ma - Fully Assessed Reason for Visit: Ear Pain [817] Cmt: Left ear Primary Visit Diagnosis:Acute otitis media, left [H66.92] Order(s):amoxicillin (AMOXIL) 875 mg tabletTake 1 tablet by mouth twice daily for 10 days.Disp: 20 tabletRfl: 0 Prescriptions as of 07/24/2018 Sig: ASPIRIN 81 MG TABLET,DELAYED * Take 81 mg by mouth once wesley* FOLIC ACID ORAL Take by mouth. IRON ORAL Take by mouth. LABETALOL ORAL Take by mouth. 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 Encounter Status:Closed by DOROTHY RICKETTS PA-C on 07/24/18 GROUP B STREP DNA Collected: 07/24/2018 Status: F Source: [place] BY PCR 11:05 AM [facility] REPOSITORY Order Comment: Source: Vaginal-Rectal TYPE CODE TESTS RESULT OUT OF RANGE REFERENCE UNITS LAB L8200.0100 Negative Normal GBS TEST Negative RESULT Performed By: #### L8200.0000 #### [facility] [address] [place], [address] Observed: 07/24/2018 Status: F Source: [place] CULTURE, GROUP B 12:00 AM [facility] STREPTOCOCCUS REPOSITORY GO Culture Group B Beta Streptococcus is not isolated. Performed By: #### M100.1800 #### [facility] [address] [place], [address] GLUCOSE CHALLENGE GEST Collected: 05/23/2018 Status: F Source: [place] 1H 50G 1:10 PM [facility] REPOSITORY TYPE CODE TESTS RESULT OUT OF RANGE REFERENCE UNITS LAB L501.0250 70-140 mg/dL Normal GLU GEST 108 50g 1H Performed By: #### L501.0250, L501.1105, L501.1400, L501.4100, L501.4405 #### [facility] [address] [place], [address] SERUM CREATININE AND Collected: 05/23/2018 Status: F Source: [place] GFR 1:10 PM [facility] REPOSITORY TYPE CODE TESTS RESULT OUT OF RANGE REFERENCE UNITS LAB L501.1100 0.55-1.02 mg/dL Normal 0.61 CREAT,SERUM Result Comment: The validity of the calculated GFR AND GFRAA in patients over 70 years has not been determined. Clinical correlation is essential. LAB L501.1110 >60 mL/min Normal EST GFR 120 Result Comment: Non- GFR Calc LAB L501.1115 >60 mL/min Normal EST GFR - AA 145 Result Comment: GFR Calc Performed By: #### L501.0250, L501.1105, L501.1400, L501.4100, L501.4405 #### [facility] [address] [place], [address] URIC ACID Collected: 05/23/2018 Status: F Source: [place] 1:10 PM [facility] REPOSITORY TYPE CODE TESTS RESULT OUT OF RANGE REFERENCE UNITS LAB L501.1400 2.6-6.0 mg/dL Normal URIC 2.9 Result Comment: The drugs N-Acetylcysteine and Metamizole may falsely depress this assay. Performed By: #### L501.0250, L501.1105, L501.1400, L501.4100, L501.4405 #### [facility] [address] [place], [address] AST(SGOT) Collected: 05/23/2018 Status: F Source: [place] 1:10 PM [facility] REPOSITORY TYPE CODE TESTS RESULT OUT OF RANGE REFERENCE UNITS LAB L501.4100 15-37 U/L Low AST 12 Performed By: #### L501.0250, L501.1105, L501.1400, L501.4100, L501.4405 #### [facility] [address] [place], [address] ALANINE AMINOTRANSFERAS Collected: 05/23/2018 Status: F Source: [place] (SGPT) 1:10 PM [facility] REPOSITORY TYPE CODE TESTS RESULT OUT OF RANGE REFERENCE UNITS LAB L501.4405 13-56 U/L Normal ALT 16 Performed By: #### L501.0250, L501.1105, L501.1400, L501.4100, L501.4405 #### [facility] [address] [place], [address] CREATININE, URINE Collected: 05/23/2018 Status: F Source: [place] (RANDOM) 1:10 PM [facility] REPOSITORY TYPE CODE TESTS RESULT OUT OF RANGE REFERENCE UNITS LAB L501.1200 NO RANGE EST. mg/dL Normal UR CREAT 138.00 Performed By: #### L501.1200, L501.1930 #### [facility] [address] [place], [place], [address] PROTEIN, URINE Collected: 05/23/2018 Status: F Source: [place] (RANDOM) 1:10 PM [facility] REPOSITORY TYPE CODE TESTS RESULT OUT OF RANGE REFERENCE UNITS LAB L501.1930 <11.9 mg/dL High 16.2 PROTEIN,UR.R AN. Performed By: #### L501.1200, L501.1930 #### [facility] [address] [place], [place], [address] CBC-COMPLETE BLOOD CNT Collected: 05/23/2018 Status: F Source: [place] NO DIFF 1:10 PM [facility] REPOSITORY TYPE CODE TESTS RESULT OUT OF RANGE REFERENCE UNITS LAB L100.1000 4.4-11.0 K/mm3 Normal WBC 7.8 LAB L100.1200 4.2-5.4 M/mm3 Low RBC 3.44 LAB L100.1300 12.0-15.0 g/dl Low HGB 10.8 LAB L100.1400 37-47 % Low HCT 32.2 LAB L100.1500 81-99 fL Normal MCV 93.6 LAB L100.1600 27.0-32.0 pg Normal MCH 31.4 LAB L100.1700 32-36 g/gl Normal MCHC 33.5 LAB L100.1810 11.6-14.6 % Normal RDW CV 13.3 LAB L100.1820 35.1-43.9 fl High RDW SD 44.0 LAB L100.1900 150-450 K/mm3 Normal PLT 194 LAB L100.2000 6.2-12.0 fl Normal MPV 9.6 Performed By: #### L100.0500 #### [facility] [address] [place], [address] PROTHROMBIN TIME W/INR Collected: 05/23/2018 Status: F Source: [place] 1:10 PM [facility] REPOSITORY TYPE CODE TESTS RESULT OUT OF RANGE REFERENCE UNITS LAB L300.4150 11.7-14.9 SECONDS Normal PROTIME 12.5 LAB L300.4200 Normal INR 0.9 Performed By: #### L300.3900, L300.4310 #### [facility] [address] [place], [address] PARTIAL THROMBOPLAST Collected: 05/23/2018 Status: F Source: [place] TIME 1:10 PM [facility] REPOSITORY TYPE CODE TESTS RESULT OUT OF RANGE REFERENCE UNITS LAB L300.4310 24.1-36.2 Seconds Normal PTT 25.4 Performed By: #### L300.3900, L300.4310 #### [facility] [address] [place], [address] URINE DRUG SCREEN Collected: 12/31/2017 Status: F Source: [place] (VISTA) 3:06 PM [facility] REPOSITORY Order Comment: List of Drugs Taken or Suspected? UNK TYPE CODE TESTS RESULT OUT OF RANGE REFERENCE UNITS LAB L505.0075 TO BE Normal CONFIRMED Result Comment: CONFIRMATORY TESTING FOR ALL POSITIVE URINE DRUG SCREEN RESULTS WILL ONLY BE SENT OUT UPON PHYSICIAN ORDER. VISTA Urine Drug Screen methods provide only preliminary analytical test results. A more specific alternate chemical method must be used in order to obtain a confirmed analytical result. Gas chromatography/mass spectrometery (GC/MS) is the preferred confirmatory method. Clinical consideration and professional judgement should be applied to any drug of abuse test result, particularly when preliminary positive results are used. URINE TCA TESTING MUST BE ORDERED SEPARATELY. USE TEST MNEMONIC: [facility] LAB L505.5005 VISTA UDS PH 5 Normal LAB L505.5015 <1000 ng/mL AMPHETAMINES Normal NEGATIVE LAB L505.5025 < 200 ng/mL BARBITIURATES Normal NEGATIVE LAB L505.5035 < 200 ng/mL BENZODIAZIPINE Normal NEGATIVE LAB L505.5045 < 300 ng/mL COCAINE Normal NEGATIVE LAB L505.5055 < 500 High ng/mL ECSTACY POSITIVE LAB L505.5065 < 300 ng/mL METHADONE Normal NEGATIVE LAB L505.5075 < 300 ng/mL OPIATES Normal NEGATIVE LAB L505.5085 < 25 ng/mL PCP Normal NEGATIVE LAB L505.5095 < 50 ng/mL THC Normal NEGATIVE Performed By: #### L505.5000, L505.6240 #### [facility] [address] [place], [place], [address] NICOTINE URINE DRUG Collected: 12/31/2017 Status: F Source: [place] SCREEN 3:06 PM [facility] REPOSITORY Order Comment: List of Drugs Taken or Suspected? UNK TYPE CODE TESTS RESULT OUT OF RANGE REFERENCE UNITS LAB L505.6250 TO BE Normal CONFIRMED Result Comment: CONFIRMATORY TESTING FOR ALL POSITIVE URINE DRUG SCREEN RESULTS WILL ONLY BE SENT OUT UPON PHYSICIAN ORDER. The results of Urine Drug Screen methods provide only preliminary analytical test results. A more specific alternate chemical method must be used in order to obtain a confirmed analytical result. Gas chromatography/mass spectrometery (GC/MS) is the preferred confirmatory method. Clinical consideration and professional judgement should be applied to any drug of abuse test result, particularly when preliminary positive results are used. LAB L505.6270 <200 ng/mL Normal COT DRG Negative SCREEN Result Comment: Cotinine is the first-stage metabolite of Nicotine. Performed By: #### L505.5000, L505.6240 #### [facility] [address] [place], [place], [address] URINALYSIS, ROUTINE Collected: 12/31/2017 Status: F Source: [place] (DIPSTICK) 3:06 PM [facility] REPOSITORY Order Comment: How was Urine Obtained? CLEAN CATCH TYPE CODE TESTS RESULT OUT OF RANGE REFERENCE UNITS LAB L400.3000 Yellow COLOR Normal Yellow LAB L400.3050 Clear Normal CLARITY Turbid LAB L400.3200 Normal mg/dl Normal GLUCOSE, UR Normal LAB L400.3300 Negative mg/dL Normal BILIRUBIN URINE Negative LAB L400.3400 Negative mg/dl Normal KETONE UR Negative LAB L400.3465 1.002-1.030 Normal SP.GR. DIPSTX 1.025 LAB L400.3550 5.0 - 8.0 pH UR Normal 5.0 LAB L400.3600 Negative mg/dl PROT Normal DIPSTX Negative LAB L400.3700 Normal mg/dl Normal UROBILI Normal LAB L400.3750 Negative Normal NITRITE UR Negative LAB L400.3780 Negative /ul High 10 OCCULT BLOOD-UR LAB L400.3800 Negative /ul High LEUK 25 ESTERASE Performed By: #### L400.2010 #### [facility] [address] [place], [place], [address] THYROID STIM HORMONE Collected: 12/31/2017 Status: F Source: [place] (TSH) 3:06 PM [facility] REPOSITORY TYPE CODE TESTS RESULT OUT OF RANGE REFERENCE UNITS LAB L501.9520 0.358-3.74 uIU/mL Normal TSH 1.16 Performed By: #### L501.9520 #### [facility] [address] [place], [address] CBC W/DIFF, AUTOMATED Collected: 12/31/2017 Status: F Source: [place] 3:06 PM [facility] REPOSITORY TYPE CODE TESTS RESULT OUT OF RANGE REFERENCE UNITS LAB L100.1000 4.4-11.0 K/mm3 Normal WBC 5.8 LAB L100.1200 4.2-5.4 M/mm3 Low RBC 4.08 LAB L100.1300 12.0-15.0 g/dl Normal HGB 12.0 LAB L100.1400 37-47 % Low HCT 36.9 LAB L100.1500 81-99 fL Normal MCV 90.4 LAB L100.1600 27.0-32.0 pg Normal MCH 29.4 LAB L100.1700 32-36 g/gl Normal MCHC 32.5 LAB L100.1810 11.6-14.6 % Normal RDW CV 14.5 LAB L100.1820 35.1-43.9 fl High RDW SD 46.8 LAB L100.1900 150-450 K/mm3 Normal PLT 222 LAB L100.2000 6.2-12.0 fl Normal MPV 10.0 LAB L100.2100 47-70 % High NEUT% 74.7 LAB L100.2200 19-41 % Normal LY% 19.2 LAB L100.2300 0-10 % Normal MONO% 5.0 LAB L100.2400 0-5 % Normal EO% 0.7 LAB L100.2500 0-1 % Normal BASO% 0.2 LAB L100.2550 0.0-0.9 % Normal IM GRAN % 0.200 Result Comment: IG% - Immature Granulocytes (promyelocytes, myelocytes and metamyelocytes) > 1% indicates that a LEFT SHIFT is Present. LAB L100.2620 2.0-7.7 X10 3/uL Normal Absolute Neut 4.4 LAB L100.2720 0.83-4.51 X10 3/ul Normal Absolute Lymph 1.12 Performed By: #### L100.0100 #### [facility] [address] [facility] [address] T AND S-NO Collected: 12/31/2017 Status: F Source: [place] CHARGE W/PNP 3:06 PM [facility] REPOSITORY Order Comment: Reason for Type AND Screen/Red Cells: Surgery? N TYPE CODE TESTS RESULT OUT OF RANGE REFERENCE UNITS LAB B10.0800 A Normal BLOOD POSITIVE TYPE GEL LAB B100.4050 Normal Ab SCREEN NEGATIVE GEL Performed By: #### B100.7550 #### [facility] [address] [place], [address] RUBELLA IGG Collected: 12/31/2017 Status: F Source: [place] 3:06 PM [facility] REPOSITORY TYPE CODE TESTS RESULT OUT OF RANGE REFERENCE UNITS LAB L509.4000 IU/mL Normal Rubella IgG 78.3 Result Comment: Antibody results Interpretation of Immune Status < 5 IU/ml Presumed Non-immune 5 - < 10 IU/ml Equivocal > or = 10 IU/ml Presumed Immune Performed By: #### L509.4000, L3890.6005 #### [facility] [address] [facility] [address] HIV - [facility] Collected: 12/31/2017 Status: F Source: [place] 3:06 PM [facility] REPOSITORY TYPE CODE TESTS RESULT OUT OF RANGE REFERENCE UNITS LAB L3890.6005 Nonreactive Normal HIV - [facility] Non-Reactive Performed By: #### L509.4000, L3890.6005 #### [facility] [address] [place], [address] HEPATITIS B SURFACE Collected: 12/31/2017 Status: F Source: [place] AG 3:06 PM [facility] REPOSITORY TYPE CODE TESTS RESULT OUT OF RANGE REFERENCE UNITS LAB L3100.0400 Negative Normal HB Negative SURF AG Result Comment: Performed at: [facility] [id number] Paving Supervisor: Ger Nix PhD, Phone: [phone] Performed By: #### L3100.0390, L3100.0625 #### [facility] (refer to report for specific site) refer to report for address and phone number HEPATITIS C ANTIBODIES Collected: 12/31/2017 Status: F Source: [place] 3:06 PM [facility] REPOSITORY TYPE CODE TESTS RESULT OUT OF RANGE REFERENCE UNITS LAB L3100.0650 0.0-0.9 s/co ratio Normal HEP C AB 0.1 Result Comment: Negative: < 0.8 Indeterminate: 0.8 - 0.9 Positive: > 0.9 The CDC recommends that a positive HCV antibody result be followed up with a HCV Nucleic Acid Amplification test ([id number]). Performed By: #### L3100.0390, L3100.0625 #### [facility] (refer to report for specific site) refer to report for address and phone number RPR Collected: 12/31/2017 Status: F Source: [place] 3:06 PM [facility] REPOSITORY TYPE CODE TESTS RESULT OUT OF REFERENCE UNITS RANGE LAB L700.5100 NONREACTIVE Normal RPR NONREACTIVE Performed By: #### L700.5100 #### [facility] [address] [place], [place], [address] (728) HCG TITER QUANT., Collected: 12/20/2017 Status: F Source: [place] SERUM 8:26 AM [facility] REPOSITORY TYPE CODE TESTS RESULT OUT OF RANGE REFERENCE UNITS LAB L700.8000 <9 non-preg mIU/mL High HCG 4923 QUANT. Performed By: #### L700.8000 #### [facility] [address] [place], [address] HCG TITER QUANT., Collected: 12/17/2017 Status: F Source: [place] SERUM 10:43 AM [facility] REPOSITORY TYPE CODE TESTS RESULT OUT OF RANGE REFERENCE UNITS LAB L700.8000 <9 non-preg mIU/mL High HCG 2059 QUANT. Performed By: #### L700.8000 #### [facility] [address] [place], [address] PROGESTERONE LEVEL Collected: 12/17/2017 Status: F Source: [place] 10:43 AM [facility] REPOSITORY TYPE CODE TESTS RESULT OUT OF REFERENCE UNITS RANGE LAB L509.4001 See Comment ng/mL Progesterone Normal 19.35 Result Comment: Progesterone Reference Table: UNITS Female: Follicular 0.15 - 1.40 ng/mL Luteal 3.34 - 25.56 ng/mL Mid-luteal 4.44 - 28.03 ng/mL Postmenopausal 0.0 - 0.73 ng/mL : 1st Trimester 11.22 - 90.00 ng/mL 2nd Trimester 25.55 - 89.40 ng/mL 3rd Trimester 48.40 -422.50 ng/mL Performed By: #### L509.4001 #### [facility] [address] [place], [address] CT/NG [facility] BY PCR Collected: 12/17/2017 Status: F Source: [place] 10:10 AM [facility] REPOSITORY TYPE CODE TESTS RESULT OUT OF RANGE REFERENCE UNITS LAB L8200.2100 Negative Normal Chlam Negative Trac PCR LAB L8200.2200 Negative Normal NG by Negative PCR Performed By: #### L8200.2000 #### [facility] [address] [place], [address] PAP I-G W/RFX HRHPV Collected: 12/17/2017 Status: F Source: [place] 10:10 AM [facility] REPOSITORY Order Comment: CYTOLOGY INFORMATION: - CLINICAL INFORMATION: - DATE LMP/MENOPAUSE: 10/30/17 LMP - COLLECTION VIAL: Thin Prep Vial - LIGHT BULB ASSEMBLER SOURCE: CERVICAL/ENDOCERVICAL - COLLECTION TECHNIQUE: BRUSH/SPATULA Specimen Comment: [id number] Specimen Comment: No. of containers..01 ThinPrep Vial TYPE CODE TESTS RESULT OUT OF RANGE REFERENCE UNITS LAB L7400.0800 . Normal DIAGN Comment Result Comment: NEGATIVE FOR INTRAEPITHELIAL LESION AND MALIGNANCY. THIS SPECIMEN WAS RESCREENED PART OF OUR BAR FINISH OPERATOR PROGRAM. LAB L7400.0900 . Normal ADEQ Comment Result Comment: Satisfactory for evaluation. Endocervical and/or squamous metaplastic cells (endocervical component) are present. LAB L7400.1400 . Normal PERFORM Comment Result Comment: Messi Guerrero, Osteopathic Neurologist (ASCP) LAB L7400.1500 . Normal QC Comment REV Result Comment: Courtney Streeter Osteopathic Neurologist (ASCP) LAB L7400.2575 . Normal TEST METHOD Comment Result Comment: This liquid based ThinPrep(R) pap test was screened with the use of an image guided system. LAB L7400.2600 . Normal . COMM LAB L7400.2700 . Normal PAPSMR Comment Result Comment: The Pap smear is a screening test designed to aid in the detection of premalignant and malignant conditions of the uterine cervix. It is not a diagnostic procedure and should not be used as the sole means of detecting cervical cancer. Both false-positive and false-negative reports do occur. LAB L7400.2800 . Normal HPV RFLX Comment Result Comment: The HPV DNA reflex criteria were not met with this specimen result therefore, no HPV testing was performed. Performed at: - [facility] [id number] Paving Supervisor: Sandy Aragon MD, Phone: [phone] Performed By: #### L7400.0350 #### [facility] (refer to report for specific site) refer to report for address and phone number ALLERGIES ALLERGIES DATE TYPE / NAME / CODE REACTION SEVERITY SOURCE CODE 08/12/2018 Drug Sulfa (Sulfonamide Vomiting Unknown [place] Allergy/41 Antibiotics)/[id number] [facility] [id number]([facility]) [facility]) Repository 08/26/2006 Drug SULFA (SULFONAMIDE Vomiting [place] Class/4195 ANTIBIOTICS) Clinic Main [address]([facility]) Repository Drug/18241 sulfamethoxazole Mandaen 1003([facility]) System Repository ENCOUNTERS ENCOUNTERS ADMIT/DISCHARGE ACCOUNT NUMBER ADMITTING ENCOUNTER LOCATION SOURCE CLASS 09/22/2018 [id number] Ambulatory [facility] ding:[facility] Repository 09/18/2018 [id number] Ambulatory [facility] [facility] ding:WOBLAB Repository 09/08/2018/09/08/20 [id number] AARTI, Ambulatory [address] ding:[facility] Repository IMRoom: Room 2 09/04/2018 [id number] Ambulatory [facility] ding:LAB.FUT Repository URE 08/18/2018/08/18/20 [id number] [place], Ambulatory [address] ding:[facility] Repository IMRoom: Room 2 08/12/2018/08/14/20 [id number] Phi Massey Inpatient [address] ding:WPRoom: Repository WF109Qsd: 1 08/12/2018 [id number] Phi Massey Ambulatory BMSBuilding: [place]ell BMS.[facility] Repository 08/12/2018 [id number] Phi Massey Ambulatory BMSBuilding: Gabrielle BMS.[facility] Repository 08/12/2018 [id number] Phi Massey Ambulatory BMSBuilding: [place] BMS.[facility] Repository 08/12/2018/08/14/20 [id number] Ambulatory BMSBuilding: Martell [facility] Repository 08/05/2018 [id number] Gavino Cortez Ambulatory [facility] ding:WP Repository 08/03/2018/08/06/20 [id number] Patric, Inpatient [address] ding:WPRoom: Repository WH576Cvw: 1 08/01/2018 [id number] Ambulatory [facility] ding:WOBLAB Repository 07/24/2018 [id number] Ambulatory [facility] ding:LABSPEC Repository 07/24/2018/07/24/20 [id number] Ambulatory [address] Repository 05/23/2018 [id number] Ambulatory [facility] ding:WOBLAB Repository 12/31/2017 [id number] Ambulatory [facility] ding:WOBLAB Repository 12/20/2017 [id number] Ambulatory [facility] ding:WOBLAB Repository 12/17/2017 [id number] Ambulatory [facility] ding:WOBLAB Repository 11/28/[id number] [facility] ding:[place] IM 11/28/2017/11/28/19 [id number] [place], [address] ding:[place] Repository IMRoom: Room 2 10/17/2017/10/17/[id number] [facility]oom: Room 2 PAYERS PAYERS ENCOUNTER GUARANTOR PAYER SUBSCRIBER SOURCE 09/22/2018 REI Bill Primary REI H Gabrielle [id number] Insurance:ANTHEMPolic EICHELBERGERDOB: Community CR y Number: [id number] Repository [place] [address]Amx: Date:2739-14-71WD [address] [place] [address] 95[address]XL: 09/22/2018 Secondary NOT GIVENUNK [place]ell Insurance:SELF PAY [facility] Number: Effective Repository Date:2018-09-22 09/18/2018 REI H Primary REI H Gabrielle [id number] Insurance:ANTHEMPolic EICHELBERGERDOB: Community CR y Number: [id number] [id number] Repository , [place] [address]Dgm: Date:0802-01-15IW [address] [place] [address]) 474[address]GZ: 09/18/2018 Secondary NOT GIVENUNK Gabrielle Insurance:SELF PAY [facility] Number: Effective Repository Date:2018-09-18 09/04/2018 REI H Primary REI H [place] [id number] Insurance:ANTHEMPolic EICHELBERGERDOB: Community CR y Number: [id number] [id number] Repository , [place] [address]Cgu: Date:0032-03-63LA [address] RONNIE [address]EVENSON () [address]HW: 09/04/2018 Secondary NOT GIVENUNK [place] Insurance:SELF PAY [facility] Number: Effective Repository Date:2018-08-19 08/12/2018 REI H Primary REI H Gabrielle [id number] Insurance:ANTHEMPolic EICHELBERGERDOB: Community CR y Number: [id number] [id number] Repository , [place] [address]Ytd: Date:8862-16-45NS [address]QOZCCHVRONNIE CONDE () [address]SC: 08/12/2018 Secondary NOT GIVENUNK Gabrielle Insurance:SELF PAY [facility] Number: Effective Repository Date:2018-08-11 08/12/2018 REI H Primary REI H [place]rielle [id number] Insurance:ANTHEMPolic EICHELBERGERDOB: Community CR y Number: [id number] [id number] Repository , [place] [address]Fzf: Date:8533-76-92SS [address]TMBNFADRONNIE CONDE () [address]WO: 08/12/2018 Secondary NOT GIVENUNK Gabrielle Insurance:SELF PAY [facility] Number: Effective Repository Date:2018-08-12 08/12/2018 REI H Primary REI H [place] [id number] Insurance:ANTHEMPolic EICHELBERGERDOB: Community CR y Number: [id number] [id number] Repository , [place] [address]Knu: Date:8589-86-88VE [address]GUAKTKTRONNIE CONDE () [address]BR: 08/12/2018 Secondary NOT GIVENUNK [place] Insurance:SELF PAY [facility] Number: Effective Repository Date:2018-08-12 08/12/2018 REI Khan Primary REI Anthony [id number] Insurance:ANTHEMPolic EICHELBERGERDOB: Community CR y Number: [id number] [id number] Repository , [place] [address]Ptg: Date:7202-71-17ND [address]AVZLULB, [facility]) [address]GY: 08/12/2018 Secondary NOT GIVENUNK Gabrielle Insurance:SELF PAY [facility] Number: Effective Repository Date:2018-08-12 08/12/2018 REI Khan Primary REI Anthony [id number] Insurance:ANTHEMPolic EICHELBERGERDOB: Community CR y Number: [id number] [id number] Repository , [place] [address]Cbe: Date:8710-16-49QB [address] [place] [address] [facility]) 59213BB: 08/12/2018 Secondary NOT GIVENUNK [place] Insurance:SELF PAY [facility] Number: Effective Repository Date:2018-08-12 08/05/2018 REI Khan Primary REI Anthony [id number] Insurance:ANTHEMPolic EICHELBERGERDOB: Community CR y Number: [id number] [id number] Repository , [place] [address]Dns: Date:2168-04-68RR [address] [place] [address] [facility]) 788[address]FS: 08/05/2018 Secondary NOT GIVENUNK [place] Insurance:SELF PAY [facility] Number: Effective Repository Date:2018-06-18 08/03/2018 REI Khan Primary REI Anthony [id number] Insurance:ANTHEMPolic EICHELBERGERDOB: Community CR y Number: [id number] Repository , [place] [address]Gpy: Date:8939-74-15AP [address]QDBONAKRONNIE CONDE () [address]OV: 08/03/2018 Secondary NOT GIVENUNK [place] Insurance:SELF PAY [facility] Number: Effective Repository Date:2018-08-03 08/01/2018 Rei Bill Primary Rei Bill Gabrielle [id number] Insurance:ANTHEMPolic EichelbergerDOB: Community CR y Number: [id number] [id number] Repository , [place] [address]Vwi: Date:9681-55-87GG [address] R[address]EVENSON () [address]DR: 08/01/2018 Secondary NOT GIVENUNK [place] Insurance:SELF PAY [facility] Number: Effective Repository Date:2018-08-01 07/24/2018 Rei H Primary Rei H Gabrielle [id number] Insurance:ANTHEMPolic EichelbergerDOB: Community CR y Number: [id number] [id number] Repository , [place] [address]Tmd: Date:8300-56-88TY [address]MNQKIAORONNIE CONDE () [address]YG: 07/24/2018 Secondary NOT GIVENUNK Gabrielle Insurance:SELF PAY [facility] Number: Effective Repository Date:2018-07-24 05/23/2018 Rei H Primary Rei H Gabrielle [id number] Insurance:ANTHEMPolic EichelbergerDOB: [address] y Number: [id number] Repository , [place] [address]Umb: Date:2156-85-44UU [address]YFFPNLARONNIE CONDE () [address]ZQ: 05/23/2018 Secondary NOT GIVENUNK Gabrielle Insurance:SELF PAY [facility] Number: Effective Repository Date:2018-05-23 12/31/2017 Rei H Primary Rei H Gabrielle [id number] Insurance:ANTHEMPolic EichelbergerD[facility] Number: [id number] [id number] Repository , [place] [address]Sqj: Date:4793-90-04AL [phone] [id number], [place] -2 () [address]TP: 12/31/2017 Secondary NOT GIVENUNK Gabrielle Insurance:SELF PAY [facility] Number: Effective Repository Date:2017-12-31 12/20/2017 Rei Khan Primary Rei Anthony [id number] Insurance:ANTHEMPolic EichelbergerDOB[place] [facility] [place] Number: [id number] [id number] Repository , [place] [address]Jdd: Date:2245-93-15YS [phone] [id number], [place] 2 () [address]HB: 12/20/2017 Secondary NOT GIVENUNK [place] Insurance:SELF PAY [facility] Number: Effective Repository Date:2017-12-20 12/17/2017 Rei Khan Primary Rei Anthony [id number] Insurance:ANTHEMPolic EichelbergerDOB: [facility] [place] Number: [id number] [id number] Repository , [place] [address]Fms: Date:0989-54-53QI [phone] [id number], [place] -2 () [address]MF: 12/17/2017 Secondary NOT GIVENUNK [place] Insurance:SELF PAY [facility] Number: Effective Repository Date:2017-12-17 11/28/2017 REI Khan Primary REI Palacios EICKALYANBERGERDOB: Insurance:[facility] EICHELBERGERDOB: [facility] ANTHEMPolicy Number: [id number] [facility] Repository [address] [place] [address] Date:2017-11-28 - [address] [place] [address] 7880-35-19Blmf , [place] [id number]: Name:CD:[id number] O [id number]: [address] [place] [address] (HP) [phone]: (800) (HP) [phone] (WP) 11/28/2017 REI Khan Primary REI CARBONEB: Insurance:1500 [facility]: [facility] ANTHEMPolicy Number: [id number] [address] Date:2017-10-17 - [address] [place] [address] [id number] , [place] [id number]: Name:CD:[id number] O [id number]: [address] [place] [address] (HP) [phone]: (800) (HP) [phone] (WP) 10/17/2017 REI Khan Primary [facility]I [facility]: Insurance:1500 [facility]: [facility] ANTHEMPolicy Number: [id number] [place] [address] Date:2017-10-17 - [address] [place] [address] [id number] , [place] [id number]: Name:CD:[id number] O [id number]: [address] [place] [address] MD (HP) [phone]: (800) (HP) [phone] (WP)
== END ==
PROVIDERS: Family Provider Physician Assistant Medical; PCP Physician Assistant Medical; Referring Provider Physician Assistant Medical; Visit Provider Physician Assistant Medical
DX: O14.90 Unspecified pre-eclampsia, unspecified trimester (principal); O26.899 Other specified pregnancy related conditions, unspecified trimester; I50.9 Heart failure, unspecified; Z79.899 Other long term (current) drug therapy; Z3A.00 Weeks of gestation of pregnancy not specified
CPT/HCPCS: 36415; 80048; 83880

== ENCOUNTER → 2018-09-18 09:51 | Outpatient (CLI) | payer BC, SELFPAY ==
[2018-09-18 12:01] LABS: Progesterone Level 0.16 ng/mL (See Comment)
[2018-09-18 12:15] LABS: hCG Titer Quant., Serum < 1 mIU/mL (<9 non-preg)
--- OUTSIDE RECORDS SUMMARY | 2018-11-04 03:53 | XMS RPT_ITS ---
:1985 Author Organization OHIP Support Name Relationship Address Phone MESSI RIVER Unavailable [address] + [place] [address] CHATA FLANAGAN Unavailable [address] + [place] [id number] MESSI RIVER Unavailable [address] + [place] [address] CHATA FLAANGAN Unavailable [address] + [place] [phone] MESSI RIVER Unavailable [address] + [place] [address] CHATA FLANAGAN Unavailable [address] + [place] [phone] MESSI RIVER Unavailable [address] + [place] [address] CHATA FLANAGAN Unavailable [address] + [place] [phone] MESSI RIVER Unavailable [address] + [place] [address] CHATA FLANAGAN Unavailable [address] + [place] [phone] MESSI RIVER Unavailable [address] + [place] [id number] CHATA FLANAGAN Unavailable [address] + [place] [address] MESSI RIVER Unavailable [address] + [place] [phone] CHATA FLANAGAN Unavailable [address] + [place] [phone] MESSI RIVER Unavailable [address] + [place] [address] CHATA FLANAGAN Unavailable [address] + [place] [phone] MESSI RIVER Unavailable [address] + [place] [address] CHATA FLANAGAN Unavailable [address] + [place] [phone] MESSI RIVER Unavailable [address] + [place] [address] CHATA FLANAGAN Unavailable [address] + [place] [phone] MESSI RIVER Unavailable [address] + [place] [address] CHATA FLANAGAN Unavailable [address] + [place] [phone] MESSI RIVER Unavailable [address] + [place] [address] CHATA FLANAGAN Unavailable [address] + [place] [phone] MESSI RIVER Unavailable [address] + [place] [address] CHATA FLANAGAN Unavailable [address] + [place] [phone] MESSI RIVER Unavailable [address] + [place] [address] CHATA FLANAGAN Unavailable [address] + [place] [phone] MESSI RIVER Unavailable [address] + [place] [address] CHATA FLANAGAN Unavailable [address] [facility] [address] + [place] [phone] MESSI RIVER Unavailable [address] + [place] [address] CHATA FLANAGAN Unavailable [address] [facility] [address] + [place] [phone] MESSI RIVER Unavailable [address] + [place] [address] CHATA FLANAGAN Unavailable [address] + [place] [phone] MESSI RIVER Unavailable [address] + [place] [address] MUNDO FLANAGANIAN Unavailable [address] + [place] [phone] Care Team Providers Name Role Phone MEGGAN BROUSSARD Attending Unavailable MEGGAN BROUSSARD Primary Care Unavailable AARTI, MEGGAN B Admitting Unavailable AARTI, MEGGAN B Attending Unavailable AARTI, MEGGAN B Primary Care Unavailable AARTI, MEGGAN B Admitting Unavailable AARTI, MEGGAN B Attending Unavailable AARTI, MEGGAN B Primary Care Unavailable AARTI, MEGGAN B Admitting Unavailable AARTI, MEGGAN B Attending Unavailable AARTI, MEGGAN B Primary Care Unavailable AARTI, MEGGAN B Admitting Unavailable AARTI, MEGGAN B Attending Unavailable AARTI, MEGGAN B Primary Care Unavailable Seals, Gavino Attending Unavailable Aarti, Meggan Primary Care Unavailable Seals, Gavino Attending Unavailable Seals, Gavino Attending Unavailable Seals, Gavino Attending Unavailable Aarti, Meggan Attending Unavailable [place], Meggan Referring Unavailable Aarti, Meggan Primary Care Unavailable [place], Meggan Attending Unavailable Aarti, Meggan Primary Care Unavailable Seals, Gavino Attending Unavailable Seals, Gavino Attending Unavailable Seals, Gavino Admitting Unavailable Seals, Gavino Attending Unavailable [place], [place] Primary Care Unavailable Seals, Gavino Attending Unavailable Seals, Gavino Attending Unavailable Patric, Ana Attending Unavailable Ana Spivey Referring Unavailable Ana Spivey Admitting Unavailable Aarti, Meggan Primary Care Unavailable Phi Massey Admitting Unavailable Shilpa, Phi Attending Unavailable Shilpa, Phi Admitting Unavailable [place], Gavino Attending Unavailable [place], Meggan Primary Care Unavailable Phi Massey Consulting Unavailable Shilpa, Phi Admitting Unavailable Kitmarcelo, Gavino Attending Unavailable Aarti, Meggan Primary Care Unavailable Phi Massey Consulting Unavailable Shilpa, Phi Admitting Unavailable [place], Gavino Attending Unavailable [place], [place] Primary Care Unavailable Phi Massey Consulting Unavailable [place], Meggan Attending Unavailable [place], Meggan Primary Care Unavailable Aarti, Meggan Referring Unavailable Gilberto Suh Attending Unavailable Phi Massey Referring Unavailable PROBLEMS PROBLEMS DATE TYPE CONDITION / CODE ATTENDING STATUS SOURCE 10/21/2018 Unknown N18.2 - Chronic Alix Broussard kidney disease, Meggan Community stage 2 (mild) / Hospital N18.2(ICD-10) Repository 09/22/2018 Unknown Z11.3 - Encounter Gavino Cortez for screening for Community infections with a Hospital predominantly sexual Repository mode of transmission / Z11.3(ICD-10) 09/02/2018 Unknown R07.9 - Chest pain, Gilberto Suh Active [facility] unspecified / Community R07.9(ICD-10) Hospital Repository 08/06/2018 Unknown O82 - Encounter for Patric, Active Gabrielle delivery Summer [facility] without indication / Hospital O82(ICD-10) Repository 08/06/2018 Unknown G89.18 - Other acute Patric, Active [facility] postprocedural pain Summer [facility] / G89.18(ICD-10) Hospital Repository 07/24/2018 Unknown Z36.85 - Encounter SealsGavino Active [place]rielle for Community screening for Hospital Streptococcus B / Repository Z36.85(ICD-10) 05/23/2018 Unknown Z34.83 - Encounter Seals, Gavino Active [place]elle for supervision of [facility] other normal Hospital , third Repository trimester / Z34.83(ICD-10) 12/31/2017 Unknown Z34.81 - Encounter Seals, Gavino Active [place]elle for supervision of [facility] other normal Hospital , first Repository trimester / Z34.81(ICD-10) 12/20/2017 Unknown O20.0 - Threatened Seals, Gavino Active [facility] / Community O20.0(ICD-10) Hospital Repository 12/17/2017 Unknown Z12.4 - Encounter SealsGavino Active [facility] for screening for Community malignant neoplasm [facility] cervix / Repository Z12.4(ICD-10) 12/17/2017 Unknown Z32.01 - Encounter Seals, Gavino Active [place] for test, Community result positive / Hospital Z32.01(ICD-10) Repository PROCEDURES PROCEDURES No Procedure Records FoundRESULTS RESULTS COMPREHENSIVE METABOLIC Collected: 10/21/2018 Status: F Source: GABRIELLE PROFIL 11:04 AM [facility] HOSPITAL REPOSITORY TYPE CODE TESTS RESULT OUT OF RANGE REFERENCE UNITS LAB L501.0100 74-106 mg/dL Normal GLU 83 Result Comment: Please note revised GLUCOSE reference range effective 2017. LAB L501.1000 7-18 mg/dL Normal BUN 15 LAB L501.1100 0.55-1.02 mg/dL Normal CREAT,SERUM 0.75 Result Comment: The validity of the calculated GFR AND GFRAA in patients over 70 years has not been determined. Clinical correlation is essential. LAB L501.1110 >60 mL/min Normal EST GFR 93 Result Comment: Non- GFR Calc LAB L501.1115 >60 mL/min Normal EST GFR - AA 112 Result Comment: GFR Calc LAB L501.1300 10-20 RATIO Normal BUN/CRE 19.9 LAB L501.1500 6.4-8.2 g/dL T Normal PROT 7.1 LAB L501.1800 3.2-5.0 g/dL Normal ALB 3.7 LAB L501.1950 2.2-4.2 g/dL Normal GLOB 3.4 LAB L501.2000 0.9-2.4 RATIO Normal A/G 1.1 LAB L501.2200 8.5-10.1 mg/dL CA Normal 8.9 LAB L501.4100 15-37 U/L Normal AST 21 LAB L501.4305 45-117 U/L High ALK P 123 LAB L501.4405 13-56 U/L Normal ALT 42 LAB L501.4600 0.20-1.00 mg/dL T Normal BILI 0.40 LAB L501.5300 136-145 mmol/L NA Normal 143 LAB L501.5600 3.5-5.1 mmol/L K Normal 3.9 LAB L501.5900 98-107 mmol/L High CL 108 LAB L501.6100 21.0-32.0 mmol/L Normal CO2 27.0 LAB L501.6200 5-15 Normal GAP 8 Performed By: #### L500.4050 #### [facility] [address] [place], [address] CT/NG WCH BY PCR Collected: 09/22/2018 Status: F Source: GABRIELLE 9:45 AM [facility] REPOSITORY TYPE CODE TESTS RESULT OUT OF RANGE REFERENCE UNITS LAB L8200.2100 Negative Normal Chlam Negative Trac PCR LAB L8200.2200 Negative Normal NG by Negative PCR Performed By: #### L8200.2000 #### [facility] [address] [place], [address] PROGESTERONE LEVEL Collected: 09/18/2018 Status: F Source: SEALY 9:54 AM [facility] REPOSITORY TYPE CODE TESTS RESULT OUT OF [...] -422.50 ng/mL Performed By: #### L509.4001 #### [facility] [address] [facility] [place], [address] HCG TITER QUANT., Collected: 09/18/2018 Status: F Source: GABRIELEL SERUM 9:54 AM [facility] REPOSITORY TYPE CODE TESTS RESULT OUT OF RANGE REFERENCE UNITS LAB L700.8000 <9 non-preg mIU/mL Normal HCG < 1 QUANT. Performed By: #### L700.8000 #### [facility] [address] [facility] [place], [address] BASIC METABOLIC Collected: 09/04/2018 Status: F Source: GABRIELLE PROFILE (BMP) 8:40 AM [facility] REPOSITORY TYPE CODE TESTS RESULT OUT OF [...] GAP 7 Performed By: #### L500.2500 #### [facility] [address] [place], [address] BNP,B-TYPE NATRIURETIC Collected: 09/04/2018 Status: F Source: SEALY PEPTIDE 8:40 AM [facility] REPOSITORY TYPE CODE TESTS RESULT OUT OF RANGE REFERENCE UNITS LAB L503.6620 0-100 pg/mL Normal B-TYPE 12.1 SHAUNA PEP Performed By: #### L503.6620 #### [facility] [address] [facility] [place], [address] 12 LEAD ELECTROCARDIOGRAM Observed: 08/14/2018 Status: F Source: GABRIELLE 3:29 PM [facility] REPOSITORY [facility] Cardiovascular Services [address] [place] [address] 12 Lead EKG 08/11/18 2210 MR#: [id number] Acct: [id number] Name: REI FLANAGAN Rep #: [id number] : 1985 33 From: Geo Loco MD Attending Dr: Phi Massey MD Status: DIS IN Ordering Dr: Rommel Dumont Date: 08/11/18 Location: Sex: F C Admitted: [...] Left atrial enlargement Borderline ECG Confirmed by GEO LOCO MD ([id number]), staff editor HANNAH MAI ([id number]) on 08/14/2018 3:29:20 PM Referred By: LORIE Confirmed By:GEO LOCO MD 08/14/18 1529 Date Geo Loco MD CC: Meggan Broussard; ED PHYSICIAN PROVIDER; Phi Massey MD Signed DISCHARGE SUMMARY Observed: 08/14/2018 Status: F Source: GABRIELLE 8:11 AM [facility] REPOSITORY [facility] Medical Records Department [address] [place] [address] Discharge Summary 08/14/18 0802 MR#: [id number] Acct: [id number] Name: REI FLANAGAN Rep #: [id number] : 1985 33 From: Gavino Cortez MD PCP: Meggan Broussard Status: ADM IN Y Location: [place] [address] Discharge Date and Diagnosis - Problem List [...] DISCHARGE INSTRUCTION Observed: 08/14/2018 Status: F Source: GABRIELLE 7:54 AM [facility] REPOSITORY [facility] Medical Records Department [address] [place] [address] Instructions for Home/Discharge Instructions 08/14/18 0751 MR#: [id number] Acct: [id number] Name: REI FLANAGAN Rep #: [id number] : 1985 33 From: Gavino Cortez MD [...] 6:35 AM [facility] REPOSITORY TYPE CODE TESTS RESULT OUT OF [...] MPV 8.9 Performed By: #### L100.0500 #### [facility] [address] [place], [address] BASIC METABOLIC Collected: 08/14/2018 Status: F Source: GABRIELLE PROFILE (BMP) 6:35 AM [facility] REPOSITORY TYPE CODE TESTS RESULT OUT OF [...] GAP 9 Performed By: #### L500.2500 #### [facility] [address] [place], [place], [address] MAGNESIUM Collected: 08/14/2018 Status: F Source: GABRIELLE 6:35 AM [facility] REPOSITORY TYPE CODE TESTS RESULT OUT OF RANGE REFERENCE UNITS LAB L501.5200 1.6-2.6 mg/dL High MG 3.2 Performed By: #### L501.5200 #### [facility] [address] [place], [place], [address] CBC-COMPLETE BLOOD CNT Collected: 08/13/2018 Status: F Source: GABRIELLE NO DIFF 6:46 AM [facility] REPOSITORY TYPE CODE TESTS RESULT OUT OF [...] MPV 8.7 Performed By: #### L100.0500 #### [facility] [address] [place], [address] BASIC METABOLIC Collected: 08/13/2018 Status: F Source: SEALY PROFILE ([facility]) 6:46 AM [facility] REPOSITORY TYPE CODE TESTS RESULT OUT OF [...] 12 Performed By: #### L500.2500, L501.5200 #### [facility] [address] [place], [address] MAGNESIUM Collected: 08/13/2018 Status: F Source: SEALY 6:46 AM [facility] REPOSITORY TYPE CODE TESTS RESULT OUT OF RANGE REFERENCE UNITS LAB L501.5200 1.6-2.6 mg/dL High alert MG 7.2 Result Comment: Critical Result(s) Called at: 07:21:29 08/13/2018 by: Urszula Rollins Performed By: #### L500.2500, L501.5200 #### [facility] [address] [place], [address] ECHOCARDIOGRAM COMPLETE Observed: 08/12/2018 Status: F Source: SEALY 5:18 PM [facility] REPOSITORY [facility] Cardiovascular Services [address] [place] [address] Echo Complete 08/12/18 1416 MR#: [id number] Acct: [id number] Name: REI FLANAGAN Rep #: [id number] : 1985 33 From: Gilberto Suh MD [...] Date Dictated: 08/12/18 1416 Date Transcribed: 08/12/181717 Private Detective: Signed VENOUS DUPLEX LOWER Observed: 08/12/2018 Status: F Source: SEALY EXTREMITY 3:39 PM [facility] REPOSITORY [facility] Cardiovascular Services [address] [place] [address] Venous Duplex US - Luke Extrem 08/12/18 1014 MR#: [id number] Acct: [id number] Name: REI FLANAGAN Rep #: [id number] : 1985 33 From: Salbador Rodrigues MD [...] Ordering Physician: Gavino Haddad Performed By: Jhoan Trujillo RVT 08/12/18 1538 Date Salbador Rodrigues MD CC: Meggan Broussard; Gavino Haddad MD; Phi Massey MD Date Dictated: 08/12/18 1014 Date Transcribed: 08/12/18 1538 Private Detective: Signed CONSULTATION Observed: 08/12/2018 Status: F Source: SEALY 12:50 PM [facility] REPOSITORY [facility] Medical Records Department [address] [place] [address] Consultation 08/12/18 0754 MR#: [id number] Acct: [id number] Name: REI FLANAGAN Rep #: [id number] : 1985 33 From: Gavino Haddad MD PCP: Meggan Broussard Status: ADM IN Y Location: [id number] Problem List (1) CHF (congestive heart failure) [...] advised Code Visit Office Visits / Consults: [id number] IP Consult L5 08/12/18 1250 <Electronically signed by Gavino Haddad MD> Date Gavino Haddad MD Cosigner Signature (if applicable): Date CC: Meggan Broussard Signed EMERGENCY DEPARTMENT Observed: 08/12/2018 Status: F Source: SEALY SUMMARY 8:56 AM [facility] REPOSITORY [facility] Medical Records Department [address] [place] [address] Emergency Department Summary 08/12/18 0840 MR#: [id number] Acct: [id number] Name: REI FLANAGAN Rep #: [id number] : 1985 33 From: Ranjeet Mendez MD [...] emergency department. I discussed patient's case with CLINICAL RESEARCH ANALYST on-call Dr. Massey and we are in agreement that the patient should be started on a magnesium drip. Ultimately I was able to bring the patient's blood pressure down to 184/100. Patient will be admitted to the [facility] at this time. Disposition: Admission Impression: 1. Preeclampsia, severe Critical care time 40 minutes This note was generated with [employer] dictation software. It may contain incorrect words, spelling, and punctuation that were not noted in review of the chart prior to signing ED Disposition - Plan for ED Patient: Disposition: Acute Care Hospital [facility] Chief Complaint: Chest Pain What to do if you have Problems For any increased pain, shortness of breath, bleeding, nausea or vomiting, chest pain, or any unexpected problems, contact your Primary Care Provider. Call [facility] ([phone]) or report to the closest Emergency Room. Call 911 if necessary. 08/12/18 0856 <Electronically signed by Ranjeet Mendez MD> Date Ranjeet Mendez MD Cosigner Signature (If Indicated): Date CC: Meggan Broussard HISTORY AND PHYSICAL Observed: 08/12/2018 Status: F Source: SEALY EXAM 8:13 AM [facility] REPOSITORY [facility] Medical Records Department [address] [place] [address] History and Physical 08/12/18 0804 MR#: [id number] Acct: [id number] Name: REI FLANAGAN Rep #: [id number] : 1985 33 From: Phi Massey MD PCP: Meggan Broussard Status: ADM IN Location: LE850-8 History and Physical Date of Admission: 08/11/18 [...] Continuing to monitor closely. Appreciate hospitalist input. 08/12/18812 <Electronically signed by Phi Massey MD> Date Phi Massey MD Cosign Signature: Date (if applicable) CC: Meggan Broussard; Phi Massey MD Signed CTA CHEST W/WO Observed: 08/12/2018 Status: F Source: GABRIELLE CONTRAST 7:54 AM [facility] REPOSITORY [facility] Imaging Services [address] [place] [address] CTA Chest W/WO Contrast MR#: [id number] Acct: [id number] Name: REI FLANAGAN Rep #: [id number] : 1985 F 33 From: Sergey Bowers MD PCP: Meggan Broussard Status: ADM IN Study: CTA Chest W/WO Contrast Date of Exam: 08/12/18 Exam# [id number] Ordering Dr: Gavino Haddad MD STUDY: CTA [...] Sergey Bowers MD at 9:18 EST Tel [phone], Service support , CC: Meggan Broussard; Gavino Haddad MD Private Detective: Signed CBC W/DIFF, AUTOMATED Collected: 08/11/2018 Status: F Source: GABRIELLE 11:03 PM [facility] REPOSITORY TYPE CODE TESTS RESULT OUT OF [...] 1.17 Performed By: #### L100.0100, L300.3900 #### [facility] [address] [place], [place], [address] PROTHROMBIN TIME W/INR Collected: 08/11/2018 Status: F Source: GABRIELLE 11:03 PM [facility] REPOSITORY TYPE CODE TESTS RESULT OUT OF RANGE REFERENCE UNITS LAB L300.4150 11.7-14.9 SECONDS Normal PROTIME 13.1 LAB L300.4200 Normal INR 1.0 Performed By: #### L100.0100, L300.3900 #### [facility] [address] [place], [place], [address] BASIC METABOLIC Collected: 08/11/2018 Status: F Source: GABRIELLE PROFILE (BMP) 11:03 PM [facility] REPOSITORY TYPE CODE TESTS RESULT OUT OF [...] By: #### L500.2500, L500.3400, L501.4010, L504.2610 #### [facility] [address] [place], [address] LIVER PROFILE Collected: 08/11/2018 Status: F Source: GABRIELLE 11:03 PM [facility] REPOSITORY TYPE CODE TESTS RESULT OUT OF [...] By: #### L500.2500, L500.3400, L501.4010, L504.2610 #### [facility] [address] [facility] [place], [place], [address] TROPONIN-I Collected: 08/11/2018 Status: F Source: SEALY 11:03 PM [facility] REPOSITORY TYPE CODE TESTS RESULT OUT OF RANGE REFERENCE UNITS LAB L501.4010 <0.045 ng/mL Normal 0.020 TROPONIN-I Result Comment: TROPONIN-I EXPECTED VALUES <0.045 Negative 0.045 - 0.590 Consistent with Cardiac Damage > OR = 0.600 Critical Value Not every elevated troponin is indicative of FL. These values should be used with clinical judgement in examining the patient's clinical picture for diagnosis. To establish a diagnosis of FL versus myocardial injury, there must be a demonstrated rise and/or fall in the troponin values, in addition to ischemic symptoms, EKG changes, new regional wall motion abnormality, and/or angiographical evidence. PLEASE NOTE: REFERENCE RANGES EDITED 18 Performed By: #### L500.2500, L500.3400, L501.4010, L504.2610 #### [facility] [address] [facility] [place], [place], [address] LDH Collected: 08/11/2018 Status: F Source: SEALY 11:03 PM [facility] REPOSITORY TYPE CODE TESTS RESULT OUT OF RANGE REFERENCE UNITS LAB L504.2610 84-246 U/L Normal LDH 238 Performed By: #### L500.2500, L500.3400, L501.4010, L504.2610 #### [facility] [address] [place], [address] CHEST 1 VIEW Observed: 08/11/2018 Status: F Source: GABRIELLE (PORTABLE) 9:59 PM [facility] HOSPITAL REPOSITORY [facility] Imaging Services [address] [place] [address] Chest 1 View (Portable) MR#: [id number] Acct: [id number] Name: REI FLANAGAN Rep #: [id number] : 1985 F 33 From: Winston Singh MD PCP: Meggan Broussard Status: PRE ER Study: Chest 1 View (Portable) Date of Exam: 08/11/18 Exam# [id number] Ordering Dr: Ranjeet Mendez MD STUDY: X-RAY CHEST REASON FOR EXAM: Female, 33 years old. Shortness of breath and chest pain TECHNIQUE: Single AP portable view of the chest. COMPARISON: None. FINDINGS: door liner helper leads are present. There are bilateral pulmonary [...] support , CC: Meggan Broussard; Ranjeet Mendez Private Detective: Signed DISCHARGE SUMMARY Observed: 08/06/2018 Status: F Source: GABRIELLE 8:37 AM [facility] Medical Records Department [address] [place] [address] Discharge Summary 08/06/18 0834 MR#: [id number] Acct: [id number] Name: REI FLANAGAN Rep #: [id number] : 1985 33 From: Gavino Cortez MD PCP: Status: ADM IN Y Location: [place] [address] Discharge Date and Diagnosis - Problem List [...] Sulfate 325 mg PO BID #60 tablet. 08/05/18 Ibuprofen 600 mg PO 4X/DAY #30 tab 08/06/18 Labetalol [Trandate (Beta José Miguel)] 600 mg PO TID #90 tab 08/06/18 Oxycodone [Oxyir] 5 - 10 mg PO Q4H PRN PRN 7 Days #28 tab 08/06/18 Following Prescrptions Were Given to Patient: Oxycodone [Oxyir] 5 - 10 mg PO Q4H PRN PRN 7 Days #28 tab PRN Reason: Mod-Severe Pain (4-10) Oxycodone [Oxyir] 5 mg PO Q6H PRN PRN 5 Days #20 tablet PRN Reason: Severe Pain (6-10) Docusate Sodium [Colace] 100 mg PO BID [...] Gavino Cortez MD> Date Gavino Cortez MD [facility] Signature (if applicable): Date CC: Gavino Cortez MD Signed DISCHARGE INSTRUCTION Observed: 08/05/2018 Status: F Source: GABRIELLE 8:03 AM [facility] REPOSITORY [facility] Medical Records Department [address] [place] [address] Instructions for Home/Discharge Instructions 08/03/18 2147 MR#: [id number] Acct: [id number] Name: REI FLANAGAN Rep #: [id number] : 1985 33 From: Ana Lujan MD PCP: Status: ADM IN ADDENDUM by Ana Spivey MD on 08/05/18 at 0803 Take an iron supplement, ferrous sulfate 325mg, by mouth twice daily. This has been sent to your pharmacy. 08/05/18 0803 Date Ana Spivey MD cc: * Signed [...] Cortez MD - visit When: 6 weeks 08/03/18 7270 <Electronically signed by Ana Spivey MD> Date Ana Spivey MD CC: ANN W/DIFF, AUTOMATED Collected: 08/05/2018 Status: F Source: GABRIELLE 6:00 AM [facility] REPOSITORY TYPE CODE TESTS RESULT OUT OF [...] Lymph 0.83 Performed By: #### L100.0100 #### [facility] [address] [place], [place], [address] CBC-COMPLETE BLOOD CNT Collected: 08/04/2018 Status: F Source: GABRIELLE NO DIFF 7:50 AM [facility] REPOSITORY Order Comment: Comments: Day #1 Reason [...] 10.0 Performed By: #### L100.0500, L350.1800 #### [facility] [address] [place], [place], [address] SERUM CREATININE AND Collected: 08/04/2018 Status: F Source: SEALY GFR 7:50 AM [facility] REPOSITORY TYPE CODE TESTS RESULT OUT OF [...] CRCL 84.36 Performed By: #### L501.1105 #### [facility] [address] [place], [address] PATHOLOGY SPECIMEN OB Collected: 08/03/2018 Status: F Source: SEALY 9:31 PM [facility] REPOSITORY Order Comment: Reason for Laboratory Test Placenta for Lab studies Send Specimen For (Specify): Studies @ [facility] Lab:Routine Time of Procedure: 2130 Date of [...] testing. Performed By: #### L100.0500, L350.1800 #### [facility] [address] [place], [address] PLACENTA Observed: 08/03/2018 Status: F Source: SEALY 9:31 PM [facility] REPOSITORY Patient: REI FLANAGAN : 1985 (33/F) Acct Num: [id number] Phys: Patric VELAZQUEZ,Summer Unit Num: [id number] Loc: WP [id number] Specimen: [id number] Received: 08/04/18 - 3 Spec Type: PLACENTA TISSUES 1 TISSUES: Placenta, [...] surfaces 6. Placental disc, and maternal surfaces SJ:emmanuel 08/05/18 TC:5 CPT: 25783 HEADER OPERATION: Repeat section PRE-OP DIAGNOSIS: CHTN with superimposed preeclampsia, 37 weeks TISSUE SUBMITTED: Placenta MICROSCOPIC DESCRIPTION Slides are reviewed. MICROSCOPIC DIAGNOSIS Placenta: Placental disc - third trimester placenta (535 gm). Focal area of intraparenchymal hemorrhage (1.5 and 2 cm in greatest dimension). Membranes - no pathologic diagnosis. Umbilical cord - three blood vessels and no pathologic diagnosis. SJ:emmanuel 08/06/18 Signed Ar Powell 08/06/18 <signature on file> Performed By: #### PPLAC #### [facility] [address] [place], [address] OPERATIVE REPORT Observed: 08/03/2018 Status: F Source: SEALY 9:29 PM [facility] REPOSITORY [facility] Medical Records Department [address] [place] [address] Operative Report 08/03/18 2116 MR#: [id number] Acct: [id number] Name: REI FLANAGAN Rep #: [id number] : 1985 33 From: Ana Lujan MD PCP: Status: ADM IN Y [id number] - Problem List (1) Chronic hypertension with [...] and cut after approximately 60 seconds. The infant was passed to the awaiting Pediatric Hospitalist. [...] was closed using 4-0 Monocryl by the B2B SALES MANAGER under my supervision. The patient was transferred [...] MD Signed PROTEIN+CREATININE Collected: Status: F Source: [facility],URINE 08/03/2018 7:30 PM [facility] REPOSITORY TYPE CODE TESTS RESULT OUT OF RANGE REFERENCE UNITS LAB L501.1200 NO RANGE EST. mg/dL Normal UR CREAT 133.00 LAB L501.1930 <11.9 mg/dL High 109.2 PROTEIN,UR.R AN. LAB L501.1940 0-200 mg/g CRE High PROT:CRE 821 RATIO Performed By: #### L501.0900 #### [facility] [address] [place], [address] CBC-COMPLETE BLOOD CNT Collected: 08/03/2018 Status: F Source: SEALY NO DIFF 7:10 PM [facility] REPOSITORY TYPE CODE TESTS RESULT OUT OF [...] MPV 10.3 Performed By: #### L100.0500 #### [facility] [address] [place], [address] PROTHROMBIN TIME W/INR Collected: 08/03/2018 Status: F Source: SEALY 7:10 PM [facility] REPOSITORY TYPE CODE TESTS RESULT OUT OF RANGE REFERENCE UNITS LAB L300.4150 11.7-14.9 SECONDS Normal PROTIME 14.6 LAB L300.4200 Normal INR 1.1 Performed By: #### L300.3900, L300.4310 #### [facility] [address] [place], [address] PARTIAL THROMBOPLAST Collected: 08/03/2018 Status: F Source: SEALY TIME 7:10 PM [facility] REPOSITORY TYPE CODE TESTS RESULT OUT OF RANGE REFERENCE UNITS LAB L300.4310 24.1-36.2 Seconds Normal PTT 27.7 Performed By: #### L300.3900, L300.4310 #### [facility] [address] [place], [address] COMPREHENSIVE METABOLIC Collected: 08/03/2018 Status: F Source: SEALY PROFIL 7:10 PM [facility] REPOSITORY TYPE CODE TESTS RESULT OUT OF [...] 15 Performed By: #### L500.4050, L501.1400 #### [facility] [address] [place], [address] URIC ACID Collected: 08/03/2018 Status: F Source: SEALY 7:10 PM [facility] REPOSITORY TYPE CODE TESTS RESULT OUT OF RANGE REFERENCE UNITS LAB L501.1400 2.6-6.0 mg/dL Normal URIC 3.1 Result Comment: The drugs N-Acetylcysteine and Metamizole may falsely depress this assay. Performed By: #### L500.4050, L501.1400 #### [facility] [address] [facility] [place], [place], [address] TYPE AND SCREEN Collected: 08/03/2018 Status: F Source: SEALY 7:10 PM [facility] REPOSITORY Order Comment: Reason for Type AND Screen/Red Cells: SURGERY Type of Surgery: TYPE CODE TESTS RESULT OUT OF RANGE REFERENCE UNITS LAB B10.0800 A Normal BLOOD TYPE GEL POSITIVE LAB B100.4000 Normal Antibody NEGATIVE Screen Performed By: #### B101.7450 #### [facility] [address] [place], [address] PROTHROMBIN TIME W/INR Collected: 08/01/2018 Status: F Source: GABRIELLE 11:39 AM [facility] REPOSITORY TYPE CODE TESTS RESULT OUT OF RANGE REFERENCE UNITS LAB L300.4150 11.7-14.9 SECONDS Normal PROTIME 12.8 LAB L300.4200 Normal INR 1.0 Performed By: #### L300.3900, L300.4310 #### [facility] [address] [place], [address] PARTIAL THROMBOPLAST Collected: 08/01/2018 Status: F Source: SEALY TIME 11:39 AM [facility] REPOSITORY TYPE CODE TESTS RESULT OUT OF RANGE REFERENCE UNITS LAB L300.4310 24.1-36.2 Seconds Normal PTT 25.1 Performed By: #### L300.3900, L300.4310 #### [facility] [address] [facility] [address] CBC-COMPLETE BLOOD CNT Collected: 08/01/2018 Status: F Source: GABRIELLE NO DIFF 11:39 AM [facility] REPOSITORY TYPE CODE TESTS RESULT OUT OF [...] MPV 10.4 Performed By: #### L100.0500 #### [facility] [address] [place], [address] SERUM CREATININE AND Collected: 08/01/2018 Status: F Source: SEALY GFR 11:39 AM [facility] REPOSITORY TYPE CODE TESTS RESULT OUT OF [...] By: #### L501.1105, L501.1400, L501.4100, L501.4405 #### [facility] [address] [place], [address] URIC ACID Collected: 08/01/2018 Status: F Source: SEALY 11:39 AM [facility] REPOSITORY TYPE CODE TESTS RESULT OUT OF RANGE REFERENCE UNITS LAB L501.1400 2.6-6.0 mg/dL Normal URIC 5.1 Result Comment: The drugs N-Acetylcysteine and Metamizole may falsely depress this assay. Performed By: #### L501.1105, L501.1400, L501.4100, L501.4405 #### [facility] [address] [place], [address] AST(SGOT) Collected: 08/01/2018 Status: F Source: SEALY 11:39 AM [facility] REPOSITORY TYPE CODE TESTS RESULT OUT OF RANGE REFERENCE UNITS LAB L501.4100 15-37 U/L Normal AST 15 Performed By: #### L501.1105, L501.1400, L501.4100, L501.4405 #### [facility] [address] [place], [address] ALANINE AMINOTRANSFERAS Collected: 08/01/2018 Status: F Source: GABRIELLE (SGPT) 11:39 AM [facility] REPOSITORY TYPE CODE TESTS RESULT OUT OF RANGE REFERENCE UNITS LAB L501.4405 13-56 U/L Normal ALT 20 Performed By: #### L501.1105, L501.1400, L501.4100, L501.4405 #### [facility] [address] [place], [address] PROTEIN, URINE Collected: 08/01/2018 Status: F Source: GABRIELLE (RANDOM) 11:39 AM [facility] REPOSITORY TYPE CODE TESTS RESULT OUT OF RANGE REFERENCE UNITS LAB L501.1930 <11.9 mg/dL High 44.3 PROTEIN,UR.R AN. Performed By: #### L501.1930, L502.0250 #### [facility] [address] [facility] [place], [address] MICROALB:CREAT Collected: 08/01/2018 Status: F Source: GABRIELLE RATIO,RANDOM UR 11:39 AM [facility] REPOSITORY TYPE CODE TESTS RESULT OUT OF RANGE REFERENCE UNITS LAB L501.1200 NO RANGE EST. mg/dL Normal UR CREAT 178.00 LAB L502.0500 NO RANGE EST. mg/L Normal 155.0 MICROALBUMIN ,UR LAB L502.0600 <30 mg/g CRE mg/g CRE High 87.1 MALB:CREAT Performed By: #### L501.1930, L502.0250 #### [facility] [address] [place], [address] PROGRESS Observed: 07/24/2018 Status: COMPLETED Source: KEMMERER 11:53 AM [facility] REPOSITORY O ID: [id number] Author: Dorothy Ricketts (Pa) Service: (none) Author Type: Physician Mill Operator Type: Progress Notes Filed: 07/24/2018 1:32 PM [...] symptoms persist or worsen. Dorothy Ricketts PA-C CNOV Observed: 07/24/2018 Status: COMPLETED Source: KEMMERER 11:45 AM [facility] REPOSITORY Office Visit (WSTR) REI FLANAGAN ([id number]) 1985 F Date Time Provider Department 07/24/18 11:45 AM DOROTHY RICKETTS (AV) WSTR During your visit today, we recorded the [...] one week if symptoms persist or worsen. Dorohty Ricketts PA-C Referring Provider: SELF [200] Allergies [...] 11:05 AM [facility] REPOSITORY Order Comment: Source: Vaginal-Rectal TYPE CODE TESTS RESULT OUT OF RANGE REFERENCE UNITS LAB L8200.0100 Negative Normal GBS TEST Negative RESULT Performed By: #### L8200.0000 #### [facility] [address] [facility] [place], [place], [address] Observed: 07/24/2018 Status: F Source: GABRIELLE CULTURE, GROUP B 12:00 AM [facility] STREPTOCOCCUS REPOSITORY GO Culture Group B Beta Streptococcus is not isolated. Performed By: #### M100.1800 #### [facility] [address] [place], [place], [address] GLUCOSE CHALLENGE GEST Collected: 05/23/2018 Status: F Source: GABRIELLE 1H 50G 1:10 PM [facility] REPOSITORY TYPE CODE TESTS RESULT OUT OF RANGE REFERENCE UNITS LAB L501.0250 70-140 mg/dL Normal GLU GEST 108 50g 1H Performed By: #### L501.0250, L501.1105, L501.1400, L501.4100, L501.4405 #### [facility] [address] [place], [address] SERUM CREATININE AND Collected: 05/23/2018 Status: F Source: SEALY GFR 1:10 PM [facility] REPOSITORY TYPE CODE TESTS RESULT OUT OF [...] #### L501.0250, L501.1105, L501.1400, L501.4100, L501.4405 #### [facility] [address] [place], [address] URIC ACID Collected: 05/23/2018 Status: F Source: SEALY 1:10 PM [facility] REPOSITORY TYPE CODE TESTS RESULT OUT OF RANGE REFERENCE UNITS LAB L501.1400 2.6-6.0 mg/dL Normal URIC 2.9 Result Comment: The drugs N-Acetylcysteine and Metamizole may falsely depress this assay. Performed By: #### L501.0250, L501.1105, L501.1400, L501.4100, L501.4405 #### [facility] [address] [place], [address] AST(SGOT) Collected: 05/23/2018 Status: F Source: SEALY 1:10 PM [facility] REPOSITORY TYPE CODE TESTS RESULT OUT OF RANGE REFERENCE UNITS LAB L501.4100 15-37 U/L Low AST 12 Performed By: #### L501.0250, L501.1105, L501.1400, L501.4100, L501.4405 #### [facility] [address] [place], [address] ALANINE AMINOTRANSFERAS Collected: 05/23/2018 Status: F Source: GABRIELLE (SGPT) 1:10 PM [facility] REPOSITORY TYPE CODE TESTS RESULT OUT OF RANGE REFERENCE UNITS LAB L501.4405 13-56 U/L Normal ALT 16 Performed By: #### L501.0250, L501.1105, L501.1400, L501.4100, L501.4405 #### [facility] [address] [place], [address] CREATININE, URINE Collected: 05/23/2018 Status: F Source: GABRIELLE (RANDOM) 1:10 PM [facility] REPOSITORY TYPE CODE TESTS RESULT OUT OF RANGE REFERENCE UNITS LAB L501.1200 NO RANGE EST. mg/dL Normal UR CREAT 138.00 Performed By: #### L501.1200, L501.1930 #### [facility] [address] [facility] [place], [address] PROTEIN, URINE Collected: 05/23/2018 Status: F Source: GABRIELLE (RANDOM) 1:10 PM [facility] REPOSITORY TYPE CODE TESTS RESULT OUT OF RANGE REFERENCE UNITS LAB L501.1930 <11.9 mg/dL High 16.2 PROTEIN,UR.R AN. Performed By: #### L501.1200, L501.1930 #### [facility] [address] [facility] [place], [address] CBC-COMPLETE BLOOD CNT Collected: 05/23/2018 Status: F Source: GABRIELLE NO DIFF 1:10 PM [facility] REPOSITORY TYPE CODE TESTS RESULT OUT OF [...] MPV 9.6 Performed By: #### L100.0500 #### [facility] [address] [place], [place], [address] PROTHROMBIN TIME W/INR Collected: 05/23/2018 Status: F Source: GABRIELLE 1:10 PM [facility] REPOSITORY TYPE CODE TESTS RESULT OUT OF RANGE REFERENCE UNITS LAB L300.4150 11.7-14.9 SECONDS Normal PROTIME 12.5 LAB L300.4200 Normal INR 0.9 Performed By: #### L300.3900, L300.4310 #### [facility] [address] [place], [place], [address] PARTIAL THROMBOPLAST Collected: 05/23/2018 Status: F Source: GABRIELLE TIME 1:10 PM [facility] REPOSITORY TYPE CODE TESTS RESULT OUT OF RANGE REFERENCE UNITS LAB L300.4310 24.1-36.2 Seconds Normal PTT 25.4 Performed By: #### L300.3900, L300.4310 #### [facility] [address] [place], [address] URINE DRUG SCREEN Collected: 12/31/2017 Status: F Source: GABRIELLE (VISTA) 3:06 PM [facility] REPOSITORY Order Comment: List of Drugs Taken [...] NEGATIVE Performed By: #### L505.5000, L505.6240 #### [facility] [address] [facility] [address] [place], [place], [address] NICOTINE URINE DRUG Collected: 12/31/2017 Status: F Source: GABRIELLE SCREEN 3:06 PM [facility] REPOSITORY Order Comment: List of Drugs Taken [...] Nicotine. Performed By: #### L505.5000, L505.6240 #### [facility] [address] [place], [place], [address] URINALYSIS, ROUTINE Collected: 12/31/2017 Status: F Source: GABRIELLE (DIPSTICK) 3:06 PM [facility] REPOSITORY Order Comment: How was Urine Obtained? [...] 25 ESTERASE Performed By: #### L400.2010 #### [facility] [address] [place], [address] THYROID STIM HORMONE Collected: 12/31/2017 Status: F Source: GABRIELLE (TSH) 3:06 PM [facility] REPOSITORY TYPE CODE TESTS RESULT OUT OF RANGE REFERENCE UNITS LAB L501.9520 0.358-3.74 uIU/mL Normal TSH 1.16 Performed By: #### L501.9520 #### [facility] [address] [place], [address] CBC W/DIFF, AUTOMATED Collected: 12/31/2017 Status: F Source: GABRIELLE 3:06 PM [facility] REPOSITORY TYPE CODE TESTS RESULT OUT OF [...] Lymph 1.12 Performed By: #### L100.0100 #### [facility] [address] [place] [address], [address] T AND S-NO Collected: 12/31/2017 Status: F Source: SEALY CHARGE W/PNP 3:06 PM [facility] REPOSITORY Order Comment: Reason for Type AND Screen/Red Cells: Surgery? N TYPE CODE TESTS RESULT OUT OF RANGE REFERENCE UNITS LAB B10.0800 A Normal BLOOD POSITIVE TYPE GEL LAB B100.4050 Normal Ab SCREEN NEGATIVE GEL Performed By: #### B100.7550 #### [facility] [address] [place], [place], [address] RUBELLA IGG Collected: 12/31/2017 Status: F Source: SEALY 3:06 PM [facility] REPOSITORY TYPE CODE TESTS RESULT OUT OF RANGE REFERENCE UNITS LAB L509.4000 IU/mL Normal Rubella IgG 78.3 Result Comment: Antibody results Interpretation of Immune Status < 5 IU/ml Presumed Non-immune 5 - < 10 IU/ml Equivocal > or = 10 IU/ml Presumed Immune Performed By: #### L509.4000, L3890.6005 #### [facility] [address] [facility] [place], [place], [address] HIV - [facility] Collected: 12/31/2017 Status: F Source: SEALY 3:06 PM [facility] REPOSITORY TYPE CODE TESTS RESULT OUT OF RANGE REFERENCE UNITS LAB L3890.6005 Nonreactive Normal HIV - [facility] Non-Reactive Performed By: #### L509.4000, L3890.6005 #### [facility] [address] [facility] [place], [address] HEPATITIS B SURFACE Collected: 12/31/2017 Status: F Source: SEALY AG 3:06 PM [facility] REPOSITORY TYPE CODE TESTS RESULT OUT OF RANGE REFERENCE UNITS LAB L3100.0400 Negative Normal HB Negative SURF AG Result Comment: Performed at: [facility] [address] [id number] Diagnostic Technologist: Ger Nix PhD, Phone: [phone] Performed By: #### L3100.0390, L3100.0625 #### [facility] (refer to report for specific site) refer to report for address and phone number HEPATITIS C ANTIBODIES Collected: 12/31/2017 Status: F Source: SEALY 3:06 PM [facility] REPOSITORY TYPE CODE TESTS RESULT OUT OF RANGE REFERENCE UNITS LAB L3100.0650 0.0-0.9 s/co ratio Normal HEP C AB 0.1 Result Comment: Negative: < 0.8 Indeterminate: 0.8 - 0.9 Positive: > 0.9 The CDC recommends that a positive HCV antibody result be followed up with a HCV Nucleic Acid Amplification test (061683). Performed By: #### L3100.0390, L3100.0625 #### [facility] (refer to report for specific site) refer to report for address and phone number RPR Collected: 12/31/2017 Status: F Source: SEALY 3:06 PM [facility] REPOSITORY TYPE CODE TESTS RESULT OUT OF REFERENCE UNITS RANGE LAB L700.5100 NONREACTIVE Normal RPR NONREACTIVE Performed By: #### L700.5100 #### [facility] [address] [place], [address] HCG TITER QUANT., Collected: 12/20/2017 Status: F Source: SE[place]Y SERUM 8:26 AM [facility] REPOSITORY TYPE CODE TESTS RESULT OUT OF RANGE REFERENCE UNITS LAB L700.8000 <9 non-preg mIU/mL High HCG 4923 QUANT. Performed By: #### L700.8000 #### [facility] [address] [facility] [address] [place], [address] HCG TITER QUANT., Collected: 12/17/2017 Status: F Source: SEALY SERUM 10:43 AM [facility] REPOSITORY TYPE CODE TESTS RESULT OUT OF RANGE REFERENCE UNITS LAB L700.8000 <9 non-preg mIU/mL High HCG 2059 QUANT. Performed By: #### L700.8000 #### [facility] [address] [facility] [place], [address] PROGESTERONE LEVEL Collected: 12/17/2017 Status: F Source: SEALY 10:43 AM [facility] REPOSITORY TYPE CODE TESTS RESULT OUT OF [...] -422.50 ng/mL Performed By: #### L509.4001 #### [facility] [address] [place], [address] CT/NG [facility] BY PCR Collected: 12/17/2017 Status: F Source: SEALY 10:10 AM [facility] REPOSITORY TYPE CODE TESTS RESULT OUT OF RANGE REFERENCE UNITS LAB L8200.2100 Negative Normal Chlam Negative Trac PCR LAB L8200.2200 Negative Normal NG by Negative PCR Performed By: #### L8200.2000 #### [facility] [address] [place], [address] PAP I-G W/RFX HRHPV Collected: 12/17/2017 Status: F Source: GABRIELLE 10:10 AM [facility] REPOSITORY Order Comment: CYTOLOGY INFORMATION: - CLINICAL INFORMATION: - DATE LMP/MENOPAUSE: 10/30/17 LMP - COLLECTION VIAL: Thin Prep Vial - DRUG ABUSE PROGRAM COORDINATOR SOURCE: CERVICAL/ENDOCERVICAL - COLLECTION TECHNIQUE: BRUSH/SPATULA Specimen Comment: [id number] Specimen Comment: No. of containers..01 ThinPrep Vial TYPE CODE TESTS RESULT OUT OF RANGE REFERENCE UNITS LAB L7400.0800 . Normal DIAGN Comment Result Comment: NEGATIVE FOR INTRAEPITHELIAL LESION AND MALIGNANCY. THIS SPECIMEN WAS RESCREENED PART OF OUR DIFFERENTIAL REPAIRER PROGRAM. LAB L7400.0900 . Normal ADEQ Comment Result Comment: Satisfactory for evaluation. Endocervical and/or squamous metaplastic cells (endocervical component) are present. LAB L7400.1400 . Normal PERFORM Comment Result Comment: Messi Guerrero, Journeyman Pressman (ASCP) LAB L7400.1500 . Normal QC Comment REV Result Comment: Courtney Streeter, Journeyman Pressman (ASCP) LAB L7400.2575 . Normal TEST METHOD [...] no HPV testing was performed. Performed at: [facility] [place] [id number] Diagnostic Technologist: Sandy Aragon MD, Phone: [phone] Performed By: #### L7400.0350 #### [facility] (refer to report for specific site) refer to report for address and phone number ALLERGIES ALLERGIES DATE TYPE / NAME / CODE REACTION SEVERITY SOURCE CODE 08/12/2018 Drug Sulfa (Sulfonamide Vomiting Unknown Gabrielle Allergy/41 Antibiotics)/[id number] Community [id number]([facility]) [facility]) Repository 08/26/2006 Drug SULFA (SULFONAMIDE Vomiting [place] Class/4195 ANTIBIOTICS) Clinic Main [address]([facility]) Repository Drug/75953 sulfamethoxazole [facility] 100[address]([facility]) System Repository ENCOUNTERS ENCOUNTERS ADMIT/DISCHARGE ACCOUNT NUMBER ADMITTING ENCOUNTER LOCATION SOURCE CLASS 10/29/2018 [id number] [facility] ding:LAB.FUT Repository URE 10/28/2018/10/28/[id number] ding:[place] Repository IMRoom: Room 2 10/21/2018 [id number] [facility] ding:LAB Repository 09/22/2018 [id number] [facility] ding:LABSPEC Repository 09/18/2018 [id number] [facility] ding:WOBLAB Repository 09/08/2018/09/08/[id number] ding:[place] Repository IMRoom: Room 2 09/04/2018 [id number] [facility] ding:LAB.FUT Repository URE 08/18/2018/08/18/[id number] ding:[place] Repository IMRoom: Room 2 08/12/2018/08/14/20 [id number] Phi Massey Inpatient [address] ding:W[place]oom: Repository [id number]: 1 08/12/2018 [id number] Phi Massey Ambulatory BMS[facility]: [place] [facility] Repository 08/12/2018 [id number] Phi Massey Ambulatory BMSBuilding: [place] [facility] Repository 08/12/2018 [id number] Phi Massey Ambulatory BMSBuilding: [place] [facility] Repository 08/12/2018/08/14/20 [id number] Ambulatory BMSBuilding: [place] [address] [facility] Repository 08/05/2018 [id number] Dana Gavino Ambulatory [facility] ding:WP Repository 08/03/2018/08/06/20 [id number] Patric, Inpatient [address] ding:WPRoom: Repository [id number]: 1 08/01/2018 [id number] Ambulatory [facility] ding:WOBLAB Repository 07/24/2018 [id number] Ambulatory [facility] ding:LABSPEC Repository 07/24/2018/07/24/20 [id number] Ambulatory [address] Repository 05/23/2018 [id number] Ambulatory [facility] ding:WOBLAB Repository 12/31/2017 [id number] Ambulatory [facility] ding:WOBLAB Repository 12/20/2017 [id number] Ambulatory [facility] ding:WOBLAB Repository 12/17/2017 [id number] [facility] ding:WOBLAB Repository 11/28/2017 [id number] Ambulatory [facility] ding:[facility] Repository IM 11/28/2017/11/28/19 [id number] AARTI, [address] ding:[place] Repository IMRoom: Room 2 PAYERS PAYERS ENCOUNTER GUARANTOR PAYER SUBSCRIBER SOURCE 10/29/2018 REI Khan Primary REI Beyoster [id number] [facility] y Number: [id number] [place] [id number] Repository , [place] [address]Dwe: Date:6035-81-49[address]ZPYTDZ[address] () [id number]: 10/29/2018 Secondary NOT GIVENUNK [place]elle Insurance[facility]LF [facility] Effective Repository Date:2018-10-29 10/21/2018 REI H Primary REI Khan [place] [id number] Insurance:ANTHEMPolic EICHELBERGERDOB: Community CR y Number: [id number] Repository , [place] [address]Umj: Date:[id number]JOHNVIL[address] () [address]JW: 10/21/2018 Secondary NOT GIVENUNK Gabrielle Insurance:SELF PAY [facility] Number: Effective Repository Date:2018-10-21 09/22/2018 REI H Primary REI Khan [place] [id number] Insurance:ANTHEMPolic EICHELBERGERDOB: Community CR y Number: [id number] [id number] Repository , [place] [address]Bxn: Date:4131-97-36[address] R[address]IE STEVENSON () [address]WM: 09/22/2018 Secondary NOT GIVENUNK [place] Insurance:SELF PAY [facility] Number: Effective Repository Date:2018-09-22 09/18/2018 REI H Primary REI Khan [place] [id number] Insurance:ANTHEMPolic EICHELBERGERDOB: Community CR y Number: [id number] Repository , [place] [address]Dan: Date:8173-35-63VZ [address] () [address]UZ: 09/18/2018 Secondary NOT GIVENUNK [place] Insurance:SELF PAY [facility] Number: Effective Repository Date:2018-09-18 09/04/2018 REI H Primary REI H [place] [id number] Insurance:ANTHEMPolic EICHELBERGERDOB: Community CR y Number: [id number] [id number] Repository , [place] [address]Arp: Date:5819-37-51DX [address] () [address]JA: 09/04/2018 Secondary NOT GIVENUNK [place] Insurance:SELF PAY [facility] Number: Effective Repository Date:2018-08-19 08/12/2018 REI H Primary REI H Gabrielle [id number] Insurance:ANTHEMPolic EICHELBERGERDOB: Community CR y Number: [id number] [id number] Repository , [place] [address]Obo: Date:1169-37-54IA [address]JRDMGOERONNIE CONDE () [address]GO: 08/12/2018 Secondary NOT GIVENUNK Gabrielle Insurance:SELF PAY [facility] Number: Effective Repository Date:2018-08-11 08/12/2018 REI H Primary REI H [place] [id number] Insurance:ANTHEMPolic EICHELBERGERDOB: Community CR y Number: [id number] [id number] Repository , [place] [address]Zzk: Date:4906-39-69KQ [address]NTRTGUDRONNIE CONDE () [address]SD: 08/12/2018 Secondary NOT GIVENUNK Gabrielle Insurance:SELF PAY [facility] Number: Effective Repository Date:2018-08-12 08/12/2018 REI H Primary REI H Gabrielle [id number] Insurance:ANTHEMPolic EICHELBERGERDOB: Community CR y Number: [id number] [id number] Repository , [place] [address]Wvd: Date:4592-77-48JD [address]EFWZGCLRONNIE CONDE () [address]MJ: 08/12/2018 Secondary NOT GIVENUNK [place] Insurance:SELF PAY [facility] Number: Effective Repository Date:2018-08-12 08/12/2018 REI Khan Primary REI Anthony [id number] Insurance:ANTHEMPolic EICHELBERGERDOB: Community CR y Number: [id number] [id number] Repository , [place] [address]Yck: Date:5522-56-57JE [address]GTBHGIH, [facility]) [address]DK: 08/12/2018 Secondary NOT GIVENUNK [place] Insurance:SELF PAY [facility] Number: Effective Repository Date:2018-08-12 08/12/2018 REI Khan Primary REI Anthony [id number] Insurance:ANTHEMPolic EICHELBERGERDOB: Community CR y Number: [id number] [id number] Repository , [place] [address]Hrj: Date:3748-29-15KW [address] [place] [address] [facility]) [address]BE: 08/12/2018 Secondary NOT GIVENUNK [place] Insurance:SELF PAY [facility] Number: Effective Repository Date:2018-08-12 08/05/2018 REI Khan Primary REI Anthony [id number] Insurance:ANTHEMPolic EICHELBERGERDOB: Community CR y Number: [id number] [id number] Repository , [place] [address]Gtw: Date:1797-87-24NZ [address] [place] [address] [facility]) [address]79[address]RX: 08/05/2018 Secondary NOT GIVENUNK [place] Insurance:SELF PAY [facility] Number: Effective Repository Date:2018-06-18 08/03/2018 REI Khan Primary REI Anthony [id number] Insurance:ANTHEMPolic EICHELBERGERDOB: Community CR y Number: [id number] Repository , [place] [address]Hwp: Date:6773-67-65RL [address]FZZZSTFRONNIE CONDE () [address]XU: 08/03/2018 Secondary NOT GIVENUNK [place] Insurance:SELF PAY [facility] Number: Effective Repository Date:2018-08-03 08/01/2018 Rei Bill Primary Rei Bill [place] [id number] Insurance:ANTHEMPolic EichelbergerDOB: Community CR y Number: [id number] [id number] Repository , [place] [address]Zop: Date:8215-85-37EN [address] () [address]IN: 08/01/2018 Secondary NOT GIVENUNK [place] Insurance:SELF PAY [facility] Number: Effective Repository Date:2018-08-01 07/24/2018 Rei H Primary Rei H [place] [id number] Insurance:ANTHEMPolic EichelbergerDOB: Community CR y Number: [id number] [id number] Repository , [place] [address]Cvs: Date:7923-57-12LT [address]GANRCIURONNIE CONDE () [address]KZ: 07/24/2018 Secondary NOT GIVENUNK Gabrielle Insurance:SELF PAY [facility] Number: Effective Repository Date:2018-07-24 05/23/2018 Rei H Primary Rei H Gabrielle [id number] Insurance:ANTHEMPolic EichelbergerDOB: [address] y Number: [id number] [id number] Repository , [place] [address]Eak: Date:2216-11-56IO [address]OSNUWBTRONNIE CONDE () [address]KI: 05/23/2018 Secondary NOT GIVENUNK [place] Insurance:SELF PAY [facility] Number: Effective Repository Date:2018-05-23 12/31/2017 Rei H Primary Rei H Gabrielle [id number] Insurance:ANTHEMPolic EichelbergerDOB: [facility] y Number: [id number] [id number] Repository , [place] [address]Oho: Date:7344-51-52ES [phone] [id number], [place] -2 () [address]ZK: 12/31/2017 Secondary NOT GIVENUNK Gabrielle Insurance:SELF PAY [facility] Number: Effective Repository Date:2017-12-31 12/20/2017 Rei Khan Primary Rei Anthony [id number] Insurance:ANTHEMPolic EichelbergerDOB: [facility] y Number: [id number] [id number] Repository , [place] [address]Nyq: Date:9946-79-58BS [phone] [id number], [place] 2 () [address]PD: 12/20/2017 Secondary NOT GIVENUNK Gabrielle Insurance:SELF PAY [facility] Number: Effective Repository Date:2017-12-20 12/17/2017 Rei Khan Primary Rei Anthony [id number] Insurance:ANTHEMPolic EichelbergerDOB: [facility] y Number: [id number] [id number] Repository , [place] [address]Qdu: Date:8450-05-39SN [phone] [address]SFLSAWC, [place] -2 () [address]XR: 12/17/2017 Secondary NOT GIVENUNK [place] Insurance:SELF PAY [facility] Number: Effective Repository Date:2017-12-17 11/28/2017 REI Khan Primary REI Palacios EICKALYANBERGERDOB: Insurance:[facility] EICHELBERGERDOB: [facility] ANTHEMPolicy Number: [id number] [facility] Repository [address] [place] [address] Date:2017-11-28 - [address] [place] [address] 5628-03-29Hquo , [place] [id number]: Name:CD:[id number] O [id number]: [address], [place] (HP) [address]AF: ([phone]) (HP) [phone] (WP) 11/28/2017 REI Khan [facility] REI Bill [facility] Insurance:[address] [place], [place] [address]B: [facility] [id number] ANTHEMPolicy Number: [id number] [address] Date:2017-10-[address] [place] [address] 6720-67-58Nkvk , [place] [id number]: Name:CD:[id number] O [id number]: [address], [place] (HP) [address]NR: (371) (HP) [phone] (WP)
== END ==
PROVIDERS: Family Provider Physician Assistant Medical; PCP Physician Assistant Medical; Visit Provider Obstetrics & Gynecology
DX: Z30.014 Encounter for initial prescription of intrauterine contraceptive device (principal)
CPT/HCPCS: 36415; 84144; 84702

== ENCOUNTER → 2018-09-22 13:28 | Outpatient (CLI) | payer BC, SELFPAY ==
[2018-09-22 16:39] LABS: Chlamydia Trachomatis by PCR Negative (Negative); Neisserai gonorrhoeae by PCR Negative (Negative); Probe Check PASS; Sample Adequacy Control PASS; Specimen Processing Control PASS
--- OUTSIDE RECORDS SUMMARY | 2018-12-25 04:33 | XMS RPT_ITS ---
:1985 Author Organization OHIP Support Name Relationship Address Phone MESSI RIVER Unavailable [address] + [place] [address] CHATA FLANAGAN Unavailable [address] + [place] [phone] MESSI RIVER Unavailable [address] + [place] [address] HCATA FLANAGAN Unavailable [address] + [place] [phone] MESSI RIVER Unavailable [address] + [place] [address] CHATA FLANAGAN Unavailable [address] + [place] [phone] MESSI RIVER Unavailable [address] + [place] [address] CHATA FLANAGAN Unavailable [address] + [place] [phone] MESSI RIVER Unavailable [address] + [place] [address] CHATA FLANAGAN Unavailable [address] + [place] [phone] MESSI RIVER Unavailable [address] + [place] [phone] CHATA FLANAGAN Unavailable [address] + [place] [address] MESSI RIVER Unavailable [address] + [place] [phone] CHATA FLANAGAN Unavailable [address] + [place] [phone] MESSI RIVER Unavailable [address] + [place] [address] CHATA FLANAGAN Unavailable [address] + [place] [phone] MESSI RIVER Unavailable [address] + [place] [address] CHATA FLANAGAN Unavailable [address] + [place] [phone] MESSI RIVER Unavailable [address] + [place] [address] CHATA FLANAGAN Unavailable [address] + [place] [phone] MESSI RIVER Unavailable [address] + [place] [address] CHATA FLANAGAN Unavailable [address] + [place] [phone] MESSI RIVER Unavailable [address] + [place] [address] CHATA FLANAGAN Unavailable [address] + [place] [phone] MESSI RIVER Unavailable [address] + [place] [address] CHATA FLANAGAN Unavailable [address] + [place] [phone] MESSI RIVER Unavailable [address] + [place] [address] CHATA FLANAGAN Unavailable [address] + [place] [phone] MESSI RIVER Unavailable [address] + [place] [address] CHATA FLANAGAN Unavailable [address] + [place] [phone] MESSI RIVER Unavailable [address] + [place] [address] CHATA FLANAGAN Unavailable [address] + [place] [phone] MESSI RIVER Unavailable [address] + [place] [address] CHATA FLANAGAN Unavailable [address] + [place] [phone] MESSI RIVER Unavailable [address] + [place] [address] MUNDO FLANAGANIAN Unavailable [address] + [place] [phone] Care Team Providers Name Role Phone MEGGAN [...] Gavino Attending Unavailable Aarti, Meggan Attending Unavailable Wishek, Meggan Referring Unavailable Aarti, Meggan Primary Care Unavailable Wishek, Meggan Attending Unavailable Aarti, Meggan Primary Care Unavailable Seals, Gavino Attending Unavailable Seals, Gavino Attending Unavailable Seals, Gavino Admitting Unavailable Seals, Gavino Attending Unavailable Wishek, Thatcher Primary Care Unavailable Seals, Gavino Attending Unavailable Seals, Gavino Attending Unavailable Patric, Ana Attending Unavailable Ana Spivey Referring Unavailable Ana Spivey Admitting Unavailable Aarti, Meggan Primary Care Unavailable Phi Massey Admitting Unavailable Shilpa, Phi Attending Unavailable Shilpa, Phi Admitting Unavailable Kittowilner, Gavino Attending Unavailable Wishek, Meggan Primary Care Unavailable Phi Massey Consulting Unavailable Shilpa, Phi Admitting Unavailable Kitmarcelo, Gavino Attending Unavailable Aarti, Meggan Primary Care Unavailable Phi Massey Consulting Unavailable Shilpa, Phi Admitting Unavailable Kittowilner, Gavino Attending Unavailable Wishek, Thatcher Primary Care Unavailable Phi Massey Consulting Unavailable Wishek, Meggan Attending Unavailable Wishek, Meggan Primary Care Unavailable Aarti, Meggan Referring [...] R07.9 - Chest pain, Gilberto Suh Active [place] unspecified / Community R07.9(ICD-10) Hospital Repository 08/06/2018 Unknown O82 - Encounter for Patric, Active [facility] without indication / Hospital O82(ICD-10) Repository 08/06/2018 Unknown G89.18 - Other acute Patric, Active [place] postprocedural pain [facility] / G89.18(ICD-10) Hospital Repository 07/24/2018 Unknown Z36.85 - Encounter SealsGavion Active [facility] for Community screening for Hospital Streptococcus B / Repository Z36.85(ICD-10) 05/23/2018 Unknown Z34.83 - Encounter Seals, Gavino Active [facility] for supervision [facility] other normal Hospital , third Repository trimester / Z34.83(ICD-10) 12/31/2017 Unknown Z34.81 - Encounter Seals, Gavino Active [place] for supervision [facility] other normal Hospital , first Repository trimester / Z34.81(ICD-10) 12/20/2017 Unknown O20.0 - Threatened Seals, Gavino Active [place] / Community O20.0(ICD-10) Hospital Repository 12/17/2017 Unknown Z12.4 - Encounter SealsGavino Active [place] for screening for Community malignant neoplasm [facility] cervix / Repository Z12.4(ICD-10) 12/17/2017 Unknown Z32.01 - Encounter Seals, Gavino Active [place] for test, Community result positive / Hospital Z32.01(ICD-10) Repository PROCEDURES PROCEDURES No Procedure Records FoundRESULTS RESULTS COMPREHENSIVE METABOLIC Collected: 10/21/2018 Status: F Source: [place] PROFIL 11:04 AM [facility] REPOSITORY TYPE CODE TESTS RESULT OUT [...] GAP 8 Performed By: #### L500.4050 #### [facility] [address] [place], [address] CT/NG WCH BY PCR Collected: 09/22/2018 Status: F Source: [place] 9:45 AM [facility] REPOSITORY TYPE CODE TESTS RESULT OUT OF RANGE REFERENCE UNITS LAB L8200.2100 Negative Normal Chlam Negative Trac PCR LAB L8200.2200 Negative Normal NG by Negative PCR Performed By: #### L8200.2000 #### [facility] [address] [place], [address] PROGESTERONE LEVEL Collected: 09/18/2018 Status: F Source: [place] 9:54 AM [facility] REPOSITORY TYPE CODE TESTS RESULT OUT OF [...] -422.50 ng/mL Performed By: #### L509.4001 #### [facility] [address] [facility] [place], [address] HCG TITER QUANT., Collected: 09/18/2018 Status: F Source: [place] SERUM 9:54 AM [facility] REPOSITORY TYPE CODE TESTS RESULT OUT OF RANGE REFERENCE UNITS LAB L700.8000 <9 non-preg mIU/mL Normal HCG < 1 QUANT. Performed By: #### L700.8000 #### [facility] [address] [facility], [address] BASIC METABOLIC Collected: 09/04/2018 Status: F Source: [place] PROFILE (BMP) 8:40 AM [facility] REPOSITORY TYPE CODE TESTS RESULT OUT OF [...] GAP 7 Performed By: #### L500.2500 #### [facility] [address] [place], [address] BNP,B-TYPE NATRIURETIC Collected: 09/04/2018 Status: F Source: [place] PEPTIDE 8:40 AM [facility] REPOSITORY TYPE CODE TESTS RESULT OUT OF RANGE REFERENCE UNITS LAB L503.6620 0-100 pg/mL Normal B-TYPE 12.1 SHAUNA PEP Performed By: #### L503.6620 #### [facility] [address] [facility] [place], [address] 12 LEAD ELECTROCARDIOGRAM Observed: 08/14/2018 Status: F Source: [place] 3:29 PM [facility] REPOSITORY [facility] Cardiovascular Services [address] [place] [address] 12 Lead EKG 08/11/18 2210 MR#: [id number] Acct: [id number] Name: REI FLANAGAN Rep #: [id number] : 1985 33 From: Geo Loco MD [...] ECG Confirmed by GEO LOCO MD ([id number]), commercial production editor HANNAH MAI ([id number]) on 08/14/2018 3:29:20 PM Referred By: LORIE Confirmed By:GEO LOCO MD 08/14/18 1529 Date Geo Loco MD CC: Meggan Broussard; ED PHYSICIAN PROVIDER; Phi Massey MD Signed DISCHARGE SUMMARY Observed: 08/14/2018 Status: F Source: [place] 8:11 AM [facility] REPOSITORY [facility] Medical Records Department [address] [place] [address] Discharge Summary 08/14/18 0802 MR#: [id number] Acct: [id number] Name: REI FLANAGAN Rep #: [id number] : 1985 33 From: Gavino Cortez MD PCP: Meggan Broussard Status: ADM IN Y Location: [place] [address] Discharge Date and Diagnosis - Problem List [...] 08/14/2018 Status: F Source: [place] 7:54 AM [facility] REPOSITORY [facility] Medical Records Department [address] [place] [address] Instructions for Home/Discharge Instructions 08/14/18 0751 MR#: [id number] Acct: [id number] Name: REI FLANAGAN Rep #: [id number] : 1985 33 From: Gavino Cortez MD [...] F Source: [place] NO DIFF 6:35 AM [facility] REPOSITORY TYPE CODE TESTS RESULT OUT OF [...] MPV 8.9 Performed By: #### L100.0500 #### [facility] [address] [place], [address] BASIC METABOLIC Collected: 08/14/2018 Status: F Source: [place] PROFILE (BMP) 6:35 AM [facility] REPOSITORY TYPE CODE TESTS RESULT OUT OF [...] GAP 9 Performed By: #### L500.2500 #### [facility] [address] [place], [place], [address] MAGNESIUM Collected: 08/14/2018 Status: F Source: [place] 6:35 AM [facility] REPOSITORY TYPE CODE TESTS RESULT OUT OF RANGE REFERENCE UNITS LAB L501.5200 1.6-2.6 mg/dL High MG 3.2 Performed By: #### L501.5200 #### [facility] [address] [place], [place], [address] CBC-COMPLETE BLOOD CNT Collected: 08/13/2018 Status: F Source: [place] NO DIFF 6:46 AM [facility] REPOSITORY TYPE CODE TESTS RESULT OUT OF [...] MPV 8.7 Performed By: #### L100.0500 #### [facility] [address] [place], [address] BASIC METABOLIC Collected: 08/13/2018 Status: F Source: [place] PROFILE ([facility]) 6:46 AM [facility] REPOSITORY TYPE CODE TESTS RESULT OUT OF [...] 12 Performed By: #### L500.2500, L501.5200 #### [facility] [address] [place], [address] MAGNESIUM Collected: 08/13/2018 Status: F Source: [place] 6:46 AM [facility] REPOSITORY TYPE CODE TESTS RESULT OUT OF RANGE REFERENCE UNITS LAB L501.5200 1.6-2.6 mg/dL High alert MG 7.2 Result Comment: Critical Result(s) Called at: 07:21:29 08/13/2018 by: Urszula Rollins Performed By: #### L500.2500, L501.5200 #### [facility] [address] [place], [address] ECHOCARDIOGRAM COMPLETE Observed: 08/12/2018 Status: F Source: [place] 5:18 PM [facility] REPOSITORY [facility] Cardiovascular Services [address] [place] [address] Echo Complete 08/12/18 1416 MR#: [id number] Acct: [id number] Name: REI FLANAGAN Rep #: [id number] : 1985 33 From: Gilberto Suh MD [...] Date Dictated: 08/12/18 1416 Date Transcribed: 08/12/181717 Software Development Engineer: Signed VENOUS DUPLEX LOWER Observed: 08/12/2018 Status: F Source: [place] EXTREMITY 3:39 PM [facility] REPOSITORY [facility] Cardiovascular Services [address] [place] [address] Venous Duplex US - Luke Extrem 08/12/18 1014 MR#: [id number] Acct: [id number] Name: REI FLANAGAN Rep #: [id number] : 1985 33 From: Salbador Rodrigues MD [...] Dictated: 08/12/18 1014 Date Transcribed: 08/12/18 1538 Software Development Engineer: Signed CONSULTATION Observed: 08/12/2018 Status: F Source: [place] 12:50 PM [facility] REPOSITORY [facility] Medical Records Department [address] [place] [address] Consultation 08/12/18 0754 MR#: [id number] Acct: [id number] Name: REI FLANAGAN Rep #: [id number] : 1985 33 From: Gavino Haddad MD PCP: Meggan Broussard Status: ADM IN Y Location: [id number] Problem List (1) CHF (congestive heart failure) [...] advised Code Visit Office Visits / Consults: [id number] IP Consult L5 08/12/18 1250 <Electronically signed by Gavino Haddad MD> Date Gavino Haddad MD Cosigner Signature (if applicable): Date CC: Meggan Broussard Signed EMERGENCY DEPARTMENT Observed: 08/12/2018 Status: F Source: [place] SUMMARY 8:56 AM [facility] REPOSITORY [facility] Medical Records Department [address] [place] [address] Emergency Department Summary 08/12/18 0840 MR#: [id number] Acct: [id number] Name: REI FLANAGAN Rep #: [id number] : 1985 33 From: Ranjeet Mendez MD [...] emergency department. I discussed patient's case with PORTABLE PINCH RIVETER on-call Dr. Massey and we are in agreement that the patient should be started on a magnesium drip. Ultimately I was able to bring the patient's blood pressure down to 184/100. Patient [facility] be admitted to the [facility] [place] at this time. Disposition: Admission Impression: 1. Preeclampsia, severe Critical care time 40 minutes This note was generated with [employer] dictation software. It may contain incorrect words, spelling, and punctuation that were not noted in review of the chart prior to signing ED Disposition - Plan for ED Patient: Disposition: Acute Care Hospital [facility] Chief Complaint: Chest Pain What to do if you have Problems For any increased pain, shortness of breath, bleeding, nausea or vomiting, chest pain, or any unexpected problems, contact your Primary Care Provider. Call [facility] ([phone]) or report to the closest Emergency Room. Call 911 if necessary. 08/12/18 0856 <Electronically signed by Ranjeet Mendez MD> Date Ranjeet Mendez MD Cosigner Signature (If Indicated): Date CC: Meggan Broussard HISTORY AND PHYSICAL Observed: 08/12/2018 Status: F Source: [place] EXAM 8:13 AM [facility] REPOSITORY [facility] Medical Records Department [address] [place] [address] History and Physical 08/12/18 0804 MR#: [id number] Acct: [id number] Name: REI FLANAGAN Rep #: [id number] : 1985 33 From: Phi Massey MD PCP: Meggan Broussard Status: ADM IN Location: [id number] History and Physical Date of Admission: 08/11/18 [...] Status: F Source: [place] CONTRAST 7:54 AM [facility] REPOSITORY [facility] Imaging Services [address] [place] [address] CTA Chest W/WO Contrast MR#: [id number] Acct: [id number] Name: RIE FLANAGAN Rep #: [id number] : 1985 F 33 From: Sergey Bowers MD PCP: Meggan Broussard Status: ADM IN Study: CTA Chest W/WO Contrast Date of Exam: 08/12/18 Exam# [id number] Ordering Dr: Gavino Haddad MD STUDY: CTA [...] Sergey Bowers MD at 9:18 EST Tel [phone], Service support , CC: Meggan Broussard; Gavino Haddad MD Software Development Engineer: Signed CBC W/DIFF, AUTOMATED Collected: 08/11/2018 Status: F Source: [place] 11:03 PM [facility] REPOSITORY TYPE CODE TESTS RESULT OUT OF [...] 1.17 Performed By: #### L100.0100, L300.3900 #### [facility] [address] [place], [place], [address] PROTHROMBIN TIME W/INR Collected: 08/11/2018 Status: F Source: [place] 11:03 PM [facility] REPOSITORY TYPE CODE TESTS RESULT OUT OF RANGE REFERENCE UNITS LAB L300.4150 11.7-14.9 SECONDS Normal PROTIME 13.1 LAB L300.4200 Normal INR 1.0 Performed By: #### L100.0100, L300.3900 #### [facility] [address] [place], [place], [address] BASIC METABOLIC Collected: 08/11/2018 Status: F Source: [place] PROFILE (BMP) 11:03 PM [facility] REPOSITORY TYPE CODE TESTS RESULT OUT OF [...] By: #### L500.2500, L500.3400, L501.4010, L504.2610 #### [facility] [address] [place], [address] LIVER PROFILE Collected: 08/11/2018 Status: F Source: [place] 11:03 PM [facility] REPOSITORY TYPE CODE TESTS RESULT OUT OF [...] By: #### L500.2500, L500.3400, L501.4010, L504.2610 #### [facility] [address] [facility] [place], [place], [address] TROPONIN-I Collected: 08/11/2018 Status: F Source: [place] 11:03 PM [facility] REPOSITORY TYPE CODE TESTS RESULT OUT OF RANGE REFERENCE UNITS LAB L501.4010 <0.045 ng/mL Normal 0.020 TROPONIN-I Result Comment: TROPONIN-I EXPECTED VALUES <0.045 Negative 0.045 - 0.590 Consistent with Cardiac Damage > OR = 0.600 Critical Value Not every elevated troponin is indicative of [place]. These values should be used with clinical judgement in examining the patient's clinical picture for diagnosis. To establish a diagnosis of OH versus myocardial injury, there must be a demonstrated rise and/or fall in the troponin values, in addition to ischemic symptoms, EKG changes, new regional wall motion abnormality, and/or angiographical evidence. PLEASE NOTE: REFERENCE RANGES EDITED 18 Performed By: #### L500.2500, L500.3400, L501.4010, L504.2610 #### [facility] [address] [facility] [place], [place], [address] LDH Collected: 08/11/2018 Status: F Source: [place] 11:03 PM [facility] REPOSITORY TYPE CODE TESTS RESULT OUT OF RANGE REFERENCE UNITS LAB L504.2610 84-246 U/L Normal LDH 238 Performed By: #### L500.2500, L500.3400, L501.4010, L504.2610 #### [facility] [address] [place], [address] CHEST 1 VIEW Observed: 08/11/2018 Status: F Source: [place] (PORTABLE) 9:59 PM [facility] REPOSITORY [facility] Imaging Services [address] [place] [address] Chest 1 View (Portable) MR#: [id number] Acct: [id number] Name: REI FLANAGAN Rep #: [id number] : 1985 F 33 From: Winston Singh MD PCP: Meggan Broussard Status: PRE ER Study: Chest 1 View (Portable) Date of Exam: 08/11/18 Exam# [id number] Ordering Dr: Ranjeet Mendez MD STUDY: X-RAY CHEST REASON FOR EXAM: Female, 33 years old. Shortness of breath and chest pain TECHNIQUE: Single AP portable view of the chest. COMPARISON: None. FINDINGS: race car driver leads are present. There are bilateral pulmonary [...] support , CC: Meggan Broussard; Ranjeet Mendez Software Development Engineer: Signed DISCHARGE SUMMARY Observed: 08/06/2018 Status: F Source: [place] 8:37 AM [facility] Medical Records Department [address] [place] [address] Discharge Summary 08/06/18 0834 MR#: [id number] Acct: [id number] Name: REI FLANAGAN Rep #: [id number] : 1985 33 From: Gavino Cortez MD PCP: Status: ADM IN Y Location: [place] [address] Discharge Date and Diagnosis - Problem List [...] Gavino Cortez MD> Date Gavino Cortez MD [facility] Signature (if applicable): Date CC: Gavino Cortez MD Signed DISCHARGE INSTRUCTION Observed: 08/05/2018 Status: F Source: [place] 8:03 AM [facility] REPOSITORY [facility] Medical Records Department [address] [place] [address] Instructions for Home/Discharge Instructions 08/03/18 2147 MR#: [id number] Acct: [id number] Name: REI FLANAGAN Rep #: [id number] : 1985 33 From: Ana Lujan MD [...] MD - visit When: 6 weeks 08/03/18 8050 <Electronically signed by Ana Spivey MD> Date Ana Spivey MD CC: ANN W/DIFF, AUTOMATED Collected: 08/05/2018 Status: F Source: [place] 6:00 AM [facility] REPOSITORY TYPE CODE TESTS RESULT OUT OF [...] Lymph 0.83 Performed By: #### L100.0100 #### [facility] [address] [place], [place], [address] CBC-COMPLETE BLOOD CNT Collected: 08/04/2018 Status: F Source: [place] NO DIFF 7:50 AM [facility] REPOSITORY Order Comment: Comments: Day #1 Reason [...] 10.0 Performed By: #### L100.0500, L350.1800 #### [facility] [address] [place], [place], [address] SERUM CREATININE AND Collected: 08/04/2018 Status: F Source: [place] GFR 7:50 AM [facility] REPOSITORY TYPE CODE TESTS RESULT OUT OF [...] CRCL 84.36 Performed By: #### L501.1105 #### [facility] [address] [place], [address] PATHOLOGY SPECIMEN OB Collected: 08/03/2018 Status: F Source: [place] 9:31 PM [facility] REPOSITORY Order Comment: Reason for Laboratory Test Placenta for Lab studies Send Specimen For (Specify): Studies @ [facility] Lab:Routine Time of Procedure: 2130 [...] testing. Performed By: #### L100.0500, L350.1800 #### [facility] [address] [place], [address] PLACENTA Observed: 08/03/2018 Status: F Source: [place] 9:31 PM [facility] REPOSITORY Patient: REI FLANAGAN : 1985 (33/F) Acct Num: [id number] Phys: Patric VELAZQUEZ,Summer Unit Num: [id number] Loc: WP [id number] Specimen: [id number] Received: 08/04/18 - 3 Spec Type: PLACENTA [...] and maternal surfaces SJ:emmanuel 08/05/18 TC:5 CPT: 96224 HEADER OPERATION: Repeat section PRE-OP DIAGNOSIS: CHTN [...] on file> Performed By: #### PPLAC #### [facility] [address] [place], [address] OPERATIVE REPORT Observed: 08/03/2018 Status: F Source: [place] 9:29 PM [facility] REPOSITORY [facility] Medical Records Department [address] [place] [address] Operative Report 08/03/18 2116 MR#: [id number] Acct: [id number] Name: REI FLANAGAN Rep #: [id number] : 1985 33 From: Ana Lujan MD PCP: Status: ADM IN Y [facility] - Problem List (1) Chronic hypertension with [...] was closed using 4-0 Monocryl by the POWER ORIGINATOR under my supervision. The patient was transferred [...] MD Signed PROTEIN+CREATININE Collected: Status: F Source: [facility]INE 08/03/2018 7:30 PM [facility] REPOSITORY TYPE CODE TESTS RESULT OUT OF RANGE REFERENCE UNITS LAB L501.1200 NO RANGE EST. mg/dL Normal UR CREAT 133.00 LAB L501.1930 <11.9 mg/dL High 109.2 PROTEIN,UR.R AN. LAB L501.1940 0-200 mg/g CRE High PROT:CRE 821 RATIO Performed By: #### L501.0900 #### [facility] [address] [place], [address] CBC-COMPLETE BLOOD CNT Collected: 08/03/2018 Status: F Source: [place] NO DIFF 7:10 PM [facility] REPOSITORY TYPE CODE TESTS RESULT OUT OF [...] MPV 10.3 Performed By: #### L100.0500 #### [facility] [address] [place], [address] PROTHROMBIN TIME W/INR Collected: 08/03/2018 Status: F Source: [place] 7:10 PM [facility] REPOSITORY TYPE CODE TESTS RESULT OUT OF RANGE REFERENCE UNITS LAB L300.4150 11.7-14.9 SECONDS Normal PROTIME 14.6 LAB L300.4200 Normal INR 1.1 Performed By: #### L300.3900, L300.4310 #### [facility] [address] [place], [address] PARTIAL THROMBOPLAST Collected: 08/03/2018 Status: F Source: [place] TIME 7:10 PM [facility] REPOSITORY TYPE CODE TESTS RESULT OUT OF RANGE REFERENCE UNITS LAB L300.4310 24.1-36.2 Seconds Normal PTT 27.7 Performed By: #### L300.3900, L300.4310 #### [facility] [address] [place], [address] COMPREHENSIVE METABOLIC Collected: 08/03/2018 Status: F Source: [place] PROFIL 7:10 PM [facility] REPOSITORY TYPE CODE TESTS RESULT OUT OF [...] 15 Performed By: #### L500.4050, L501.1400 #### [facility] [address] [place], [address] URIC ACID Collected: 08/03/2018 Status: F Source: [place] 7:10 PM [facility] REPOSITORY TYPE CODE TESTS RESULT OUT OF RANGE REFERENCE UNITS LAB L501.1400 2.6-6.0 mg/dL Normal URIC 3.1 Result Comment: The drugs N-Acetylcysteine and Metamizole may falsely depress this assay. Performed By: #### L500.4050, L501.1400 #### [facility] [address] [facility] [place], [place], [address] TYPE AND SCREEN Collected: 08/03/2018 Status: F Source: [place] 7:10 PM [facility] REPOSITORY Order Comment: Reason for Type AND Screen/Red Cells: SURGERY Type of Surgery: TYPE CODE TESTS RESULT OUT OF RANGE REFERENCE UNITS LAB B10.0800 A Normal BLOOD TYPE GEL POSITIVE LAB B100.4000 Normal Antibody NEGATIVE Screen Performed By: #### B101.7450 #### [facility] [address] [place], [address] PROTHROMBIN TIME W/INR Collected: 08/01/2018 Status: F Source: [place] 11:39 AM [facility] REPOSITORY TYPE CODE TESTS RESULT OUT OF RANGE REFERENCE UNITS LAB L300.4150 11.7-14.9 SECONDS Normal PROTIME 12.8 LAB L300.4200 Normal INR 1.0 Performed By: #### L300.3900, L300.4310 #### [facility] [address] [place], [address] PARTIAL THROMBOPLAST Collected: 08/01/2018 Status: F Source: [place] TIME 11:39 AM [facility] REPOSITORY TYPE CODE TESTS RESULT OUT OF RANGE REFERENCE UNITS LAB L300.4310 24.1-36.2 Seconds Normal PTT 25.1 Performed By: #### L300.3900, L300.4310 #### [facility] [address] [facility] [address] CBC-COMPLETE BLOOD CNT Collected: 08/01/2018 Status: F Source: [place] NO DIFF 11:39 AM [facility] REPOSITORY TYPE CODE TESTS RESULT OUT OF [...] MPV 10.4 Performed By: #### L100.0500 #### [facility] [address] [place], [address] SERUM CREATININE AND Collected: 08/01/2018 Status: F Source: [place] GFR 11:39 AM [facility] REPOSITORY TYPE CODE TESTS RESULT OUT OF [...] By: #### L501.1105, L501.1400, L501.4100, L501.4405 #### [facility] [address] [place], [address] URIC ACID Collected: 08/01/2018 Status: F Source: [place] 11:39 AM [facility] REPOSITORY TYPE CODE TESTS RESULT OUT OF RANGE REFERENCE UNITS LAB L501.1400 2.6-6.0 mg/dL Normal URIC 5.1 Result Comment: The drugs N-Acetylcysteine and Metamizole may falsely depress this assay. Performed By: #### L501.1105, L501.1400, L501.4100, L501.4405 #### [facility] [address] [place], [address] AST(SGOT) Collected: 08/01/2018 Status: F Source: [place] 11:39 AM [facility] REPOSITORY TYPE CODE TESTS RESULT OUT OF RANGE REFERENCE UNITS LAB L501.4100 15-37 U/L Normal AST 15 Performed By: #### L501.1105, L501.1400, L501.4100, L501.4405 #### [facility] [address] [place], [address] ALANINE AMINOTRANSFERAS Collected: 08/01/2018 Status: F Source: [place] (SGPT) 11:39 AM [facility] REPOSITORY TYPE CODE TESTS RESULT OUT OF RANGE REFERENCE UNITS LAB L501.4405 13-56 U/L Normal ALT 20 Performed By: #### L501.1105, L501.1400, L501.4100, L501.4405 #### [facility] [address] [place], [address] PROTEIN, URINE Collected: 08/01/2018 Status: F Source: [place] (RANDOM) 11:39 AM [facility] REPOSITORY TYPE CODE TESTS RESULT OUT OF RANGE REFERENCE UNITS LAB L501.1930 <11.9 mg/dL High 44.3 PROTEIN,UR.R AN. Performed By: #### L501.1930, L502.0250 #### [facility] [address] [facility] [place], [address] MICROALB:CREAT Collected: 08/01/2018 Status: F Source: [place] RATIO,RANDOM UR 11:39 AM [facility] REPOSITORY TYPE CODE TESTS RESULT OUT OF RANGE REFERENCE UNITS LAB L501.1200 NO RANGE EST. mg/dL Normal UR CREAT 178.00 LAB L502.0500 NO RANGE EST. mg/L Normal 155.0 MICROALBUMIN ,UR LAB L502.0600 <30 mg/g CRE mg/g CRE High 87.1 MALB:CREAT Performed By: #### L501.1930, L502.0250 #### [facility] [address] 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 [address] [facility] [place], [place], [address] Observed: 07/24/2018 Status: F Source: [place] CULTURE, GROUP B 12:00 AM [facility] STREPTOCOCCUS REPOSITORY GO Culture Group B Beta Streptococcus is not isolated. Performed By: #### M100.1800 #### [facility] [address] [place], [place], [address] GLUCOSE CHALLENGE GEST Collected: 05/23/2018 Status: F Source: [place] 1H 50G 1:10 PM [facility] REPOSITORY TYPE CODE TESTS RESULT OUT OF RANGE REFERENCE UNITS LAB L501.0250 70-140 mg/dL Normal GLU GEST 108 50g 1H Performed By: #### L501.0250, L501.1105, L501.1400, L501.4100, L501.4405 #### [facility] [address] [place], [address] SERUM CREATININE AND Collected: 05/23/2018 Status: F Source: [place] GFR 1:10 PM [facility] REPOSITORY TYPE CODE TESTS RESULT OUT OF [...] #### L501.0250, L501.1105, L501.1400, L501.4100, L501.4405 #### [facility] [address] [place], [address] URIC ACID Collected: 05/23/2018 Status: F Source: [place] 1:10 PM [facility] REPOSITORY TYPE CODE TESTS RESULT OUT OF RANGE REFERENCE UNITS LAB L501.1400 2.6-6.0 mg/dL Normal URIC 2.9 Result Comment: The drugs N-Acetylcysteine and Metamizole may falsely depress this assay. Performed By: #### L501.0250, L501.1105, L501.1400, L501.4100, L501.4405 #### [facility] [address] [place], [address] AST(SGOT) Collected: 05/23/2018 Status: F Source: [place] 1:10 PM [facility] REPOSITORY TYPE CODE TESTS RESULT OUT OF RANGE REFERENCE UNITS LAB L501.4100 15-37 U/L Low AST 12 Performed By: #### L501.0250, L501.1105, L501.1400, L501.4100, L501.4405 #### [facility] [address] [place], [address] ALANINE AMINOTRANSFERAS Collected: 05/23/2018 Status: F Source: [place] (SGPT) 1:10 PM [facility] REPOSITORY TYPE CODE TESTS RESULT OUT OF RANGE REFERENCE UNITS LAB L501.4405 13-56 U/L Normal ALT 16 Performed By: #### L501.0250, L501.1105, L501.1400, L501.4100, L501.4405 #### [facility] [address] [place], [address] CREATININE, URINE Collected: 05/23/2018 Status: F Source: [place] (RANDOM) 1:10 PM [facility] REPOSITORY TYPE CODE TESTS RESULT OUT OF RANGE REFERENCE UNITS LAB L501.1200 NO RANGE EST. mg/dL Normal UR CREAT 138.00 Performed By: #### L501.1200, L501.1930 #### [facility] [address] [place], [address] PROTEIN, URINE Collected: 05/23/2018 Status: F Source: [place] (RANDOM) 1:10 PM [facility] REPOSITORY TYPE CODE TESTS RESULT OUT OF RANGE REFERENCE UNITS LAB L501.1930 <11.9 mg/dL High 16.2 PROTEIN,UR.R AN. Performed By: #### L501.1200, L501.1930 #### [facility] [address] [facility] [place], [address] CBC-COMPLETE BLOOD CNT Collected: 05/23/2018 Status: F Source: [place] NO DIFF 1:10 PM [facility] REPOSITORY TYPE CODE TESTS RESULT OUT OF [...] MPV 9.6 Performed By: #### L100.0500 #### [facility] [address] [place], [place], [address] PROTHROMBIN TIME W/INR Collected: 05/23/2018 Status: F Source: [place] 1:10 PM [facility] REPOSITORY TYPE CODE TESTS RESULT OUT OF RANGE REFERENCE UNITS LAB L300.4150 11.7-14.9 SECONDS Normal PROTIME 12.5 LAB L300.4200 Normal INR 0.9 Performed By: #### L300.3900, L300.4310 #### [facility] [address] [place], [place], [address] PARTIAL THROMBOPLAST Collected: 05/23/2018 Status: F Source: [place] TIME 1:10 PM [facility] REPOSITORY TYPE CODE TESTS RESULT OUT OF RANGE REFERENCE UNITS LAB L300.4310 24.1-36.2 Seconds Normal PTT 25.4 Performed By: #### L300.3900, L300.4310 #### [facility] [address] [place], [address] URINE DRUG SCREEN Collected: 12/31/2017 Status: F Source: [place] (VISTA) 3:06 PM [facility] REPOSITORY Order Comment: List of Drugs Taken [...] NEGATIVE Performed By: #### L505.5000, L505.6240 #### [facility] [address] [facility] [employer] [place], [place], [address] NICOTINE URINE DRUG Collected: 12/31/2017 Status: F Source: [place] SCREEN 3:06 PM [facility] REPOSITORY Order Comment: List of Drugs Taken [...] Nicotine. Performed By: #### L505.5000, L505.6240 #### [facility] [address] [place], [place], [address] URINALYSIS, ROUTINE Collected: 12/31/2017 Status: F Source: [place] (DIPSTICK) 3:06 PM [facility] REPOSITORY Order Comment: How was Urine Obtained? [...] 25 ESTERASE Performed By: #### L400.2010 #### [facility] [address] [place], [address] THYROID STIM HORMONE Collected: 12/31/2017 Status: F Source: [place] (TSH) 3:06 PM [facility] REPOSITORY TYPE CODE TESTS RESULT OUT OF RANGE REFERENCE UNITS LAB L501.9520 0.358-3.74 uIU/mL Normal TSH 1.16 Performed By: #### L501.9520 #### [facility] [address] [place], [address] CBC W/DIFF, AUTOMATED Collected: 12/31/2017 Status: F Source: [place] 3:06 PM [facility] REPOSITORY TYPE CODE TESTS RESULT OUT OF [...] Lymph 1.12 Performed By: #### L100.0100 #### [facility] [address] [place] [address], [address] T AND S-NO Collected: 12/31/2017 Status: F Source: [place] CHARGE W/PNP 3:06 PM [facility] REPOSITORY Order Comment: Reason for Type AND Screen/Red Cells: Surgery? N TYPE CODE TESTS RESULT OUT OF RANGE REFERENCE UNITS LAB B10.0800 A Normal BLOOD POSITIVE TYPE GEL LAB B100.4050 Normal Ab SCREEN NEGATIVE GEL Performed By: #### B100.7550 #### [facility] [address] [place], [place], [address] RUBELLA IGG Collected: 12/31/2017 Status: F Source: [place] 3:06 PM [facility] REPOSITORY TYPE CODE TESTS RESULT OUT OF RANGE REFERENCE UNITS LAB L509.4000 IU/mL Normal Rubella IgG 78.3 Result Comment: Antibody results Interpretation of Immune Status < 5 IU/ml Presumed Non-immune 5 - < 10 IU/ml Equivocal > or = 10 IU/ml Presumed Immune Performed By: #### L509.4000, L3890.6005 #### [facility] [address] [facility] [place], [place], [address] HIV - [facility] Collected: 12/31/2017 Status: F Source: [place] 3:06 PM [facility] REPOSITORY TYPE CODE TESTS RESULT OUT OF RANGE REFERENCE UNITS LAB L3890.6005 Nonreactive Normal HIV - [facility] Non-Reactive Performed By: #### L509.4000, L3890.6005 #### [facility] [address] [facility] [place], [address] HEPATITIS B SURFACE Collected: 12/31/2017 Status: F Source: [place] AG 3:06 PM [facility] REPOSITORY TYPE CODE TESTS RESULT OUT OF RANGE REFERENCE UNITS LAB L3100.0400 Negative Normal HB Negative SURF AG Result Comment: Performed at: [facility] [id number] Building Consultant: Ger Nix PhD, Phone: [phone] Performed By: #### L3100.0390, L3100.0625 #### [facility] (refer to report for specific site) refer to report for address and phone number HEPATITIS C ANTIBODIES Collected: 12/31/2017 Status: F Source: [place] 3:06 PM [facility] REPOSITORY TYPE CODE TESTS RESULT OUT OF RANGE REFERENCE UNITS LAB L3100.0650 0.0-0.9 s/co ratio Normal HEP C AB 0.1 Result Comment: Negative: < 0.8 Indeterminate: 0.8 - 0.9 Positive: > 0.9 The CDC recommends that a positive HCV antibody result be followed up with a HCV Nucleic Acid Amplification test ([id number]). Performed By: #### L3100.0390, L3100.0625 #### [facility] (refer to report for specific site) refer to report for address and phone number RPR Collected: 12/31/2017 Status: F Source: [place] 3:06 PM [facility] REPOSITORY TYPE CODE TESTS RESULT OUT OF REFERENCE UNITS RANGE LAB L700.5100 NONREACTIVE Normal RPR NONREACTIVE Performed By: #### L700.5100 #### [facility] [address] [place], [address] HCG TITER QUANT., Collected: 12/20/2017 Status: F Source: [place] SERUM 8:26 AM [facility] REPOSITORY TYPE CODE TESTS RESULT OUT OF RANGE REFERENCE UNITS LAB L700.8000 <9 non-preg mIU/mL High HCG 4923 QUANT. Performed By: #### L700.8000 #### [facility] [address] [facility] [place], [address] HCG TITER QUANT., Collected: 12/17/2017 Status: F Source: [place] SERUM 10:43 AM [facility] REPOSITORY TYPE CODE TESTS RESULT OUT OF RANGE REFERENCE UNITS LAB L700.8000 <9 non-preg mIU/mL High HCG 2059 QUANT. Performed By: #### L700.8000 #### [facility] [address] [place], [address] PROGESTERONE LEVEL Collected: 12/17/2017 Status: F Source: [place] 10:43 AM [facility] REPOSITORY TYPE CODE TESTS RESULT OUT OF [...] -422.50 ng/mL Performed By: #### L509.4001 #### [facility] [address] [place], [address] CT/NG [facility] BY PCR Collected: 12/17/2017 Status: F Source: [place] 10:10 AM [facility] REPOSITORY TYPE CODE TESTS RESULT OUT OF RANGE REFERENCE UNITS LAB L8200.2100 Negative Normal Chlam Negative Trac PCR LAB L8200.2200 Negative Normal NG by Negative PCR Performed By: #### L8200.2000 #### [facility] [address] [place], [address] PAP I-G W/RFX HRHPV Collected: 12/17/2017 Status: F Source: [place] 10:10 AM [facility] REPOSITORY Order Comment: CYTOLOGY INFORMATION: - CLINICAL INFORMATION: - DATE LMP/MENOPAUSE: 10/30/17 LMP - COLLECTION VIAL: Thin Prep Vial - WASTE DISPOSAL ATTENDANT SOURCE: CERVICAL/ENDOCERVICAL - COLLECTION TECHNIQUE: BRUSH/SPATULA Specimen Comment: [id number] Specimen Comment: No. of containers..01 ThinPrep Vial TYPE CODE TESTS RESULT OUT OF RANGE REFERENCE UNITS LAB L7400.0800 . Normal DIAGN Comment Result Comment: NEGATIVE FOR INTRAEPITHELIAL LESION AND MALIGNANCY. THIS SPECIMEN WAS RESCREENED PART OF OUR EVENTS AND PROMOTIONS ASSISTANT PROGRAM. LAB L7400.0900 . Normal ADEQ Comment Result Comment: Satisfactory for evaluation. Endocervical and/or squamous metaplastic cells (endocervical component) are present. LAB L7400.1400 . Normal PERFORM Comment Result Comment: Messi Guerrero, Tile Mechanic Helper (ASCP) LAB L7400.1500 . Normal QC Comment REV Result Comment: Courtney Streeter, Tile Mechanic Helper (ASCP) LAB L7400.2575 . Normal TEST METHOD [...] no HPV testing was performed. Performed at: [facility] [place] [id number] Building Consultant: Sandy Aragon MD, Phone: [phone] Performed By: #### L7400.0350 #### [facility] (refer to report for specific site) refer to report for address and phone number ALLERGIES ALLERGIES DATE TYPE / NAME / CODE REACTION SEVERITY SOURCE CODE 08/12/2018 Drug Sulfa (Sulfonamide Vomiting Unknown [place] Allergy/41 Antibiotics)/[id number] Community [id number]([facility]) [facility]) Repository 08/26/2006 Drug SULFA (SULFONAMIDE Vomiting [place] Class/4195 ANTIBIOTICS) Clinic Main [address]([facility]) Repository Drug/06445 sulfamethoxazole Religion 1003([facility]) System Repository ENCOUNTERS ENCOUNTERS ADMIT/DISCHARGE ACCOUNT NUMBER ADMITTING ENCOUNTER LOCATION SOURCE CLASS 10/29/2018 [id number] [facility] ding:LAB.FUT Repository URE 10/28/2018/10/28/[id number] ding:[place] Repository IMRoom: Room 2 10/21/2018 [id number] [facility] ding:LAB Repository 09/22/2018 [id number] [facility] ding:LABSPEC Repository 09/18/2018 [id number] [facility] ding:WOBLAB Repository 09/08/2018/09/08/[id number] ding:[place] Repository IMRoom: Room 2 09/04/2018 [id number] [facility] ding:LAB.FUT Repository URE 08/18/2018/08/18/[id number] ding:[place] Repository IMRoom: Room 2 08/12/2018/08/14/20 [id number] Phi Massey Inpatient [address] ding:WPRoom: Repository SS941Gfa: 1 08/12/2018 [id number] Phi Massey Ambulatory BMSBuilding: [place] BMS.[facility] Repository 08/12/2018 [id number] Phi Massey Ambulatory BMSBuilding: [place] BMS.[facility] Repository 08/12/2018 [id number] Phi Massey Ambulatory BMSBuilding: [place] BMS.[facility] Repository 08/12/2018/08/14/20 [id number] Ambulatory BMSBuilding: [place] [facility] Repository 08/05/2018 [id number] Dana Gavino Ambulatory [facility] ding:WP Repository 08/03/2018/08/06/20 [id number] Patric, Inpatient [address] ding:WPRoom: Repository QU108Vuz: 1 08/01/2018 [id number] Ambulatory [facility] ding:WOBLAB Repository 07/24/2018 [id number] Ambulatory [facility] ding:LABSPEC Repository 07/24/2018/07/24/20 [id number] Ambulatory [address] Repository 05/23/2018 [id number] Ambulatory [facility] ding:WOBLAB Repository 12/31/2017 [id number] Ambulatory [facility] ding:WOBLAB Repository 12/20/2017 [id number] Ambulatory [facility] ding:WOBLAB Repository 12/17/2017 [id number] [facility] ding:WOBLAB Repository 11/28/2017 [id number] Ambulatory [facility] ding:[place] Repository IM 11/28/2017/11/28/19 [id number] AARTI, [address] ding:[place] Repository IMRoom: Room 2 PAYERS PAYERS ENCOUNTER GUARANTOR PAYER SUBSCRIBER SOURCE 10/29/2018 REI Khan Primary REI [place] [id number] [facility] y Number: [id number] [id number] Repository , [place] [address]Wla: Date:1633-28-90[address]GARTHUCRONNIE CONDE () [address]JG: 10/29/2018 Secondary NOT GIVENUNK [place] Insurance[facility]: Effective Repository Date:2018-10-29 10/21/2018 REI H Primary REI Khan [place] [id number] Insurance:ANTHEMPolic EICHELBERGERDOB: Community CR y Number: [id number] Repository , [place] [address]Col: Date:5569-47-64YA [address]MPOZOQDRONNIE CONDE () [address]CU: 10/21/2018 Secondary NOT GIVENUNK [place] Insurance:SELF PAY [facility] Number: Effective Repository Date:2018-10-21 09/22/2018 REI H Primary REI Khan [place] [id number] Insurance:ANTHEMPolic EICHELBERGERDOB: Community CR y Number: [id number] Repository , [place] [address]Lhc: Date:7426-70-16DY [address] () [address]U: 09/22/2018 Secondary NOT GIVENUNK [place] Insurance:SELF PAY [facility] Number: Effective Repository Date:2018-09-22 09/18/2018 REI H Primary REI Khan [place] [id number] Insurance:ANTHEMPolic EICHELBERGERDOB: Community CR y Number: [id number] Repository , [place] [address]Bdg: Date:4337-59-75SX [address] () [address]MX: 09/18/2018 Secondary NOT GIVENUNK [place] Insurance:SELF PAY [facility] Number: Effective Repository Date:2018-09-18 09/04/2018 REI H Primary REI H [place] [id number] Insurance:ANTHEMPolic EICHELBERGERDOB: Community CR y Number: [id number] Repository , [place] [address]Mzj: Date:1217-40-04RD [address] () [address]OG: 09/04/2018 Secondary NOT GIVENUNK [place] Insurance:SELF PAY [facility] Number: Effective Repository Date:2018-08-19 08/12/2018 REI H Primary REI H [place] [id number] Insurance:ANTHEMPolic EICHELBERGERDOB: Community CR y Number: [id number] Repository , [place] [address]Mwi: Date:0367-91-10DH [address]VZUPOOSRONNIE CONDE () [address]HG: 08/12/2018 Secondary NOT GIVENUNK [place] Insurance:SELF PAY [facility] Number: Effective Repository Date:2018-08-11 08/12/2018 REI H Primary REI H [place] [id number] Insurance:ANTHEMPolic EICHELBERGERDOB: Community CR y Number: [id number] Repository , [place] [address]Dug: Date:6854-26-25KQ [address]EBRXEQNRONNIE [address] () [address]FU: 08/12/2018 Secondary NOT GIVENUNK [place] Insurance:SELF PAY [facility] Number: Effective Repository Date:2018-08-12 08/12/2018 REI H Primary REI H [place] [id number] Insurance:ANTHEMPolic EICHELBERGERDOB: Community CR y Number: [id number] Repository , [place] [address]Ips: Date:5401-68-67NN [address]QQWGPHGRONNIE CON[address] () [address]YD: 08/12/2018 Secondary NOT GIVENUNK [place] Insurance:SELF PAY [facility] Number: Effective Repository Date:2018-08-12 08/12/2018 REI Khan Primary REI Anthony [id number] Insurance:ANTHEMPolic EICHELBERGERDOB: Community CR y Number: [id number] Repository , [place] [address]Inu: Date:0803-68-18SY [address]UHTORYE, [facility]) [address]II: 08/12/2018 Secondary NOT GIVENUNK [place] Insurance:SELF PAY [facility] Number: Effective Repository Date:2018-08-12 08/12/2018 REI Khan Primary REI Anthony [id number] Insurance:ANTHEMPolic EICHELBERGERDOB: Community CR y Number: [id number] Repository , [place] [address]Fmf: Date:2258-87-49WM [address] [place] [address] [facility]) [address]AK: 08/12/2018 Secondary NOT GIVENUNK [place] Insurance:SELF PAY [facility] Number: Effective Repository Date:2018-08-12 08/05/2018 REI Khan Primary REI Anthony [id number] Insurance:ANTHEMPolic EICHELBERGERDOB: Community CR y Number: [id number] Repository , [place] [address]Fkp: Date:4386-86-93EV [address] [place] [address] [facility]) [address]ED: 08/05/2018 Secondary NOT GIVENUNK [place] Insurance:SELF PAY [facility] Number: Effective Repository Date:2018-06-18 08/03/2018 REI Khan Primary REI Anthony [id number] Insurance:ANTHEMPolic EICHELBERGERDOB: Community CR y Number: [id number] Repository , [place] [address]Gad: Date:2176-83-52LN [address]TCEIRTORONNIE CONDE () [address]QJ: 08/03/2018 Secondary NOT GIVENUNK [place] Insurance:SELF PAY [facility] Number: Effective Repository Date:2018-08-03 08/01/2018 Rei Bill Primary Rei Bill [place] [id number] Insurance:ANTHEMPolic EichelbergerDOB: Community CR y Number: [id number] Repository , [place] [address]Ifb: Date:2547-16-41SA [address] () [address]QB: 08/01/2018 Secondary NOT GIVENUNK [place] Insurance:SELF PAY [facility] Number: Effective Repository Date:2018-08-01 07/24/2018 Rei H Primary Rei [place] [id number] Insurance:ANTHEMPolic EichelbergerDOB: Community [place] y Number: [id number] Repository , [place] [address]Udz: Date:5826-67-32[address]NAAGPDIRONNIE CONDE () [address]VY: 07/24/2018 Secondary NOT GIVENUNK Gabrielle Insurance:SELF PAY [facility] Number: Effective Repository Date:2018-07-24 05/23/2018 Rei H Primary Rei H Gabrielle [id number] Insurance:ANTHEMPolic EichelbergerDOB: [address] y Number: [id number] Repository , [place] [address]Sii: Date:3612-61-53KJ [address]LSBLJIFRONNIE CONDE () [address]XT: 05/23/2018 Secondary NOT GIVENUNK [place] Insurance:SELF PAY [facility] Number: Effective Repository Date:2018-05-23 12/31/2017 Rei H Primary Rei H Gabrielle [id number] Insurance:ANTHEMPolic EichelbergerDOB: [facility] y Number: [id number] [id number] Repository , [place] [address]Rin: Date:4262-67-83LB [phone] [id number], [place] -2 () [address]AF: 12/31/2017 Secondary NOT GIVENUNK Gabrielle Insurance:SELF PAY [facility] Number: Effective Repository Date:2017-12-31 12/20/2017 Rei Khan Primary Rei Anthony [id number] Insurance:ANTHEMPolic EichelbergerDOB: [facility] y Number: [id number] [id number] Repository , [place] [address]Nij: Date:6591-08-10UB [phone] [id number], [place] 2 () [address]RB: 12/20/2017 Secondary NOT GIVENUNK Gabrielle Insurance:SELF PAY [facility] Number: Effective Repository Date:2017-12-20 12/17/2017 Rei Khan Primary Rei Anthony [id number] Insurance:ANTHEMPolic EichelbergerDOB: [facility] y Number: [id number] [id number] Repository , [place] [address]Svz: Date:9321-22-41RT [phone] 399[address]BRGWKSG, [place] -2 () [address]XZ: 12/17/2017 Secondary NOT GIVENUNK [place] Insurance:SELF PAY [facility] Number: Effective Repository Date:2017-12-17 11/28/2017 REI Khan Primary REI Palacios EICKALYANBERGERDOB: Insurance:[facility] EICHELBERGERDOB: [facility] ANTHEMPolicy Number: [id number] [facility] Repository [address] [place] [address] Date:2017-11-28 - [address] [place] [address] [id number] , [place] [id number]: Name:CD:[id number] O [id number]: [address]YNJTZAM, [place] (HP) [phone]: [phone] (HP) [phone] (WP) 11/28/2017 REI Khan [facility] REI [employer] [facility] Insurance:[address] [place], [place] [address]B: [facility] [id number] ANTHEMPolicy Number: [id number] [address] Date:2017-10-[address] [place] [address] [id number] , [place] [id number]: Name:CD:[id number] O [id number]: [address]XRMVNFB, [place] (HP) [phone]: [phone] (HP) [phone] (WP)
== END ==
PROVIDERS: Visit Provider Obstetrics & Gynecology
DX: Z11.3 Encounter for screening for infections with a predominantly sexual mode of transmission (principal)
CPT/HCPCS: 87491; 87591

== ENCOUNTER → 2018-10-21 10:59 | Outpatient (CLI) | payer BC, SELFPAY ==
[2018-08-12 01:55] VITALS: BMI 50.3
[2018-10-21 12:10] LABS: ALB/GLOB Ratio 1.1 RATIO (0.9-2.4); AST(SGOT) 21 U/L (15-37); Alanine Aminotransfer ALT/SGPT 42 U/L (13-56); Albumin, Serum 3.7 g/dL (3.2-5.0); Alkaline Phosphatase 123 U/L (45-117); Anion Gap 8 (5-15); BUN 15 mg/dL (7-18); BUN/Creat Ratio 19.9 RATIO (10-20); Calcium,Total 8.9 mg/dL (8.5-10.1); Chloride 108 mmol/L (98-107); Creatinine, Serum 0.75 mg/dL (0.55-1.02); EST Glomerular Filtration Rate 93 mL/min (>60); Est Glom Filt Rate - Afr Amer 112 mL/min (>60); Globulin 3.4 g/dL (2.2-4.2); Glucose 83 mg/dL (74-106); Potassium 3.9 mmol/L (3.5-5.1); Protein, Total 7.1 g/dL (6.4-8.2); Sodium Level 143 mmol/L (136-145)
== END ==
PROVIDERS: Family Provider Physician Assistant Medical; PCP Physician Assistant Medical; Referring Provider Physician Assistant Medical; Visit Provider Physician Assistant Medical
DX: N18.2 Chronic kidney disease, stage 2 (mild) (principal)
CPT/HCPCS: 36415; 80053

== ENCOUNTER → 2019-06-19 | Outpatient (CLI) | payer BC, SELFPAY ==
[2019-06-24 15:54] LABS: HPV APTIMA, High Risk Negative (Negative)
== END | disposition home or self-care (01) ==
LOC: LABSPEC 16:22
PROVIDERS: Family Provider Physician Assistant Medical; PCP Physician Assistant Medical; Referring Provider Obstetrics & Gynecology; Visit Provider Obstetrics & Gynecology
DX: Z12.4 Encounter for screening for malignant neoplasm of cervix (principal)
CPT/HCPCS: 87624; 88175; G0145

== ENCOUNTER → 2022-08-13 | Outpatient (CLI) | payer OTHER, SELFPAY ==
--- NOTE | 2022-08-13 12:49 | US_ITS ---
EXAM: US SOFT TISSUES HEAD AND NECK, THYROID CLINICAL INDICATION: NODULES, HYPOTHYROID TECHNIQUE: Cobos scale and color doppler imaging was performed of the thyroid gland. This report was created using [employer] report generation technology. COMPARISON: US Thyroid dated 04/04/2017 FINDINGS: LEFT THYROID LOBE: Left thyroid lobe measures 4.8 x 2.0 x 2.1 cm. Diffusely heterogeneous and nodular echotexture. Stable dominant 2.8 cm left lobe nodule. RIGHT THYROID LOBE: Right thyroid lobe measures 5.0 x 2.4 x 1.7 cm. Diffusely heterogeneous and nodular echotexture. Stable 7 and 6 mm right thyroid nodules. ISTHMUS: Normal. No thyroid nodules are present. OTHER FINDINGS: This was measures 7 mm in AP dimension. US/Thyroid IMPRESSION: Stable multinodular thyroid gland. Electronically Signed: Dwaine Duff MD at 16:33 EST ,
== END | disposition home or self-care (01) ==
PROVIDERS: PCP Physician Assistant Medical; Visit Provider Physician Assistant Medical
DX: E03.9 Hypothyroidism, unspecified (principal); E04.2 Nontoxic multinodular goiter
CPT/HCPCS: 76536

== ENCOUNTER → 2023-10-28 | Outpatient (CLI) | payer OTHER, SELFPAY ==
--- OUTSIDE RECORDS SUMMARY | 2023-10-28 17:17 | XMS RPT_ITS | CCD ---
Author Name Unknown Address [id number] [place] [address] Organization [facility] Care Team Providers Care Patent Clerk Name Role Phone MEGGAN BROUSSARD Unavailable Unavailable AATRI, MEGGAN B Unavailable Unavailable AARTI, MEGGAN B Unavailable Unavailable AARTI, MEGGAN B Unavailable Unavailable AARTI, MEGGAN B Unavailable Unavailable AARTI, MEGGAN B Unavailable Unavailable AARTI, MEGGAN B Unavailable Unavailable AARTI, MEGGAN B Unavailable Unavailable AARTI, MEGGAN B Unavailable Unavailable AARTI, MEGGAN B Unavailable Unavailable AARTI, MEGGAN B Unavailable Unavailable AARTI, MEGGAN B Unavailable Unavailable AARTI, MEGGAN B Unavailable Unavailable AARTI, MEGGAN B Unavailable Unavailable AARTI, MEGGAN B Unavailable Unavailable AARTI, MEGGAN B Unavailable Unavailable AARTI, MEGGAN B Unavailable Unavailable AARTI, MEGGAN B Unavailable Unavailable Aarti, Meggan B Unavailable Shasha Payne Unavailable Unavailable Meggan Hassan Primary Care Provider Meggan Broussard Unavailable Unavailable Unavailable Meggan Hassan Primary Care Provider Unavailable Unavailable Ms. MEGGAN BROUSSARD Referring Unavail able Ms. MEGGAN BROUSSARD Attending Unavail able Ms. MEGGAN BROUSSARD Primary Care Unavail Ms. MEGGAN Sheets Referring Unavail able Ms. MEGGAN BROUSSARD Attending Unavail Ms. MEGGAN Sheets Primary Care Unavail able Ms. MEGGAN BROUSSARD Referring Unavail able Ms. MEGGAN BROUSSARD Attending Unavail able AARTI, Ms. MEGGAN Goode Primary Care Unavail MD Ember Cason Referring Unavail MD Ember Cason Attending Unavail able AARTI, Ms. MEGGAN Goode Primary Care Unavail Charles Pereira Unavailable Unavailable Aarti, Meggan Mclain Attending Unav ailable Aarti, Jolanta Mclain Referring Unav ailable Aarti, Jolanta Mclain Primary Care Unav ailable Ben, Ms. Soto Elyssa Attending Unavai lable Aarti, Ms. Meggan Rayne Primary Care Unav ailable Meggan Broussard PA-C Primary Care Provider MEGGAN BROUSSARD Referring Unavaila ble MEGGAN BROUSSARD Attending Unavaila ble MEGGAN BROUSSARD Primary Care Unavaila ble DANIELLA ALLAN Attending Unavailable MEGGAN BROUSSARD Referring Unavailable MEGGAN BROUSSADR Primary Care Unavailable Allergies Allergy Classification Reported Allergen(s) Allergy Type Date of Onset Reaction(s) Facility Sulfonamides (antibiotic) (1 source) Sulfonamides (Antibiotic) Drug Allergy Unknown [facility] (4 sources) sulfamethoxazole ; Translations: [sulfamethoxazol e] Drug Allergy 3 Rash, Other [facility] (2 sources) Sulfonamides (Antibiotic) Propensity to adverse reactions 200 6 Vomiting [facility] (8 sources) Sulfamethoxazole ; Translations: [sulfa] Drug Allergy Vomiting, Rash [facility] Work Phone: (1 source) Sulfonamides (Antibiotic) Unknown [facility] Medications Current Medications Medication Drug Class(es) Dates Sig (Normalized) Sig (Original) amoxicillin 875 mg / clavulanate 125 mg oral tablet (3 sources) Penicillin-class Antibacterial Start: 12-06-2022 End: 12-15-2022 take 1 tablet by mouth twice daily at mealtime amoxicillin-clav ulanate 875 mg-125 mg oral tablet ; 875 milligram(s) orally 2 times a day Quantity: 20 Refills: 0 Ordered: 06-Dec-2022 Charles Contreras Start: 06-Dec-2022 End: 15-Dec-2022 Generic Substitution Allowed Comments: Finish all this medication unless otherwise directed by prescriber.Take with food or milk. Completed/Discontinued Medications Medication Drug Class(es) Dates Sig (Normalized) Sig (Original) Acetaminophen (2 sources) acetaminophen (T YLENOL 8 HOUR ORAL) Take by mouth. 0 Active Problems Active Problems Problem Classification Problem Date Documented Date Episodic/Chronic Anxiety disorders (11 sources) Mixed anxiety and depressive disorder; Translations: [Dysthymic disorder] Onset: 12-09-1905-22-2023 Chronic Diabetes mellitus with complications (11 sources) Type 2 diabetes mellitus; Translations: [Diabetes mellitus without mention of complication, type II or unspecified type, not stated as uncontrolled] Onset: 12-09-1905-22-2023 Chronic Diabetes mellitus without complication (2 sources) Hyperglycemia; Translations: [Other abnormal glucose] Episodic Disorders of lipid metabolism (11 sources) Mixed hypercholesterolemia and hypertriglyceridemia; Translations: [Mixed hyperlipidemia] Onset: 12-09-1905-22-2023 Chronic Essential hypertension (11 sources) Benign essential hypertension; Translations: [Benign essential hypertension] Onset: 12-09-1905-22-2023 Chronic Fever of unknown origin (1 source) Fever; Translations: [Fever, unspecified] Episodic Headache; including migraine (1 source) Headache; including migraine; Translations: [Headache, unspecified] Onset: 12-07-19 Immunizations and screening for infectious disease (8 sources) Patient encounter status; Translations: [Other specified vaccination] 05-22-2023 Episodic Intestinal infection (1 source) Traveler's diarrhea; Translations: [Infectious diarrhea] Episodic Mood disorders (10 sources) Mild major depression, single episode; Translations: [Major depressive affective disorder, single episode, mild] Onset: 12-09-1905-22-2023 Chronic Other endocrine disorders (2 sources) Adrenal hyperfunction; Translations: [Other adrenocortical overactivity] Onset: 01-11-20 07 01-10-2007 Chronic Other gastrointestinal disorders (1 source) Diarrhea; Translations: [Diarrhea] Episodic Other lower respiratory disease (1 source) Cough; Translations: [Acute cough] Episodic Other nutritional; endocrine; and metabolic disorders (2 sources) Metabolic syndrome X; Translations: [Metabolic syndrome] Onset: 03-07-2003-07-2011 Chronic Other nutritional; endocrine; and metabolic disorders (1 source) Cholesterol level - finding; Translations: [Unspecified disorder of lipoid metabolism] Chronic Other nutritional; endocrine; and metabolic disorders (1 source) Obesity; Translations: [Obesity, unspecified] Chronic Other nutritional; endocrine; and metabolic disorders (10 sources) Severe obesity; Translations: [Morbid obesity] Onset: 12-09-1905-22-2023 Chronic Other nutritional; endocrine; and metabolic disorders (2 sources) Abnormal weight loss; Translations: [Abnormal weight loss] Onset: 11-16-19 Episodic Other screening for suspected conditions (not mental disorders or infectious disease) (4 sources) Encounter for screening mammogram for malignant neoplasm of breast; Translations: [Encounter for screening for malignant neoplasm of colon] Onset: 07-24-20 Episodic Other upper respiratory disease (3 sources) Pain in throat 02-23-2021 Episodic Past or Other Problems Problem Classification Problem Date Documented Date Episodic/Chronic Abdominal pain (13 sources) Right upper quadrant pain; Translations: [Abdominal pain, right upper quadrant] Onset: 11-16-2022 Resolved: 05-22-2023 05-22-2023 Episodic Cardiac dysrhythmias (7 sources) Palpitations; Translations: [Palpitations] Onset: 12-08-2022 12-08-2022 Episodic Fluid and electrolyte disorders (2 sources) Hypokalemia; Translations: [Hypokalemia] Onset: 01-10-2007 01-10-2007 Episodic Malaise and fatigue (11 sources) Malaise and fatigue; Translations: [Other malaise and fatigue] Onset: 12-08-2022 05-22-2023 Episodic Nausea and vomiting (10 sources) Nausea and vomiting; Translations: [Nausea with vomiting] Onset: 12-08-2022 Resolved: 05-22-2023 05-22-2023 Episodic Other nutritional; endocrine; and metabolic disorders (5 sources) Weight loss; Translations: [Loss of weight] Onset: 12-08-2022 12-08-2022 Episodic Other upper respiratory disease (10 sources) Nasal congestion; Translations: [Other disease of nasal cavity and sinuses] Onset: 12-08-2022 12-08-2022 Episodic Residual codes; unclassified (8 sources) Past history of procedure; Translations: [Other postprocedural status] Onset: 10-07-2017 Episodic Results Test Name Value Interpretation Reference Range Facil ity Vital Signs Date Time Vital Sign Value Performing Clinician Facility 09-13-2023 09:00-0500 Diastolic blood pressure 83 mm[Hg] [address] 09-13-2023 09:00-0500 Heart rate 84 /min [address] 09-13-2023 09:00-0500 Respiratory rate 20 /min [address] 09-13-2023 09:00-0500 SaO2% (BldA) [Mass fraction] 99 % [address] 09-13-2023 09:00-0500 Systolic blood pressure 150 mm[Hg] [address] 09-13-2023 07:10-0500 Body height [address] 09-13-2023 07:10-0500 Body mass index (BMI) [Ratio] 49.15 kg/m2 [address] 09-13-2023 07:10-0500 Body temperature 97 [degF] [address] 09-13-2023 07:10-0500 Body weight 127.[address] 05-22-2023 09:03-0400 Body height 160 cm Meggan LEY-C Work Phone: [facility] 05-22-2023 09:03-0400 Body mass index (BMI) [Ratio] 47.65 kg/m2 Meggan Broussard PA-C Work Phone: [facility] 05-22-2023 09:03-0400 Body weight 122.02 kg Meggan Broussard PA-C Work Phone: [facility] 05-22-2023 09:03-0400 Diastolic blood pressure 80 mm[Hg] Meggan Broussard PA-C Work Phone: [facility] 05-22-2023 09:03-0400 Heart rate 73 /min Meggan LEY-C Work Phone: [facility] 05-22-2023 09:03-0400 Systolic blood pressure 126 mm[Hg] Meggan LEY-C Work Phone: [facility] 12-06-2022 14:24-0500 Body height 160 cm Meggan Broussard Other Phone: [facility] 12-06-2022 14:24-0500 Body temperature 97.7 [degF] Meggan Broussard Other Phone: [facility] 12-06-2022 14:24-0500 Diastolic blood pressure 86 mm[Hg] Meggan Broussard Other Phone: [facility] 12-06-2022 14:24-0500 Heart rate 68 /min Meggan Broussard Other Phone: [facility] 12-06-2022 14:24-0500 Respiratory rate 14 /min Meggan Broussard Other Phone: [facility] 12-06-2022 14:24-0500 SaO2% (BldA) [Mass fraction] 98 % Meggan Broussard Other Phone: [facility] 12-06-2022 14:24-0500 Systolic blood pressure 132 mm[Hg] Meggan Broussard Other Phone: [facility] 11-14-2022 12:42-0500 Body height 160.02 cm Meggan Broussard Work Phone: [facility] Work Phone: 11-14-2022 12:42-0500 Body mass index (BMI) [Ratio] 38.09 kg/m2 Meggan Broussard Work Phone: [facility] Work Phone: 11-14-2022 12:42-0500 Body surface area Derived from formula 1.99 m2 Meggan Broussard Work Phone: [facility] Work Phone: 11-14-2022 12:42-0500 Body weight 97.52 kg Meggan Broussard Work Phone: [facility] Work Phone: 11-14-2022 12:42-0500 Diastolic blood pressure 78 mm[Hg] Meggan Broussard Work Phone: [facility] Work Phone: 11-14-2022 12:42-0500 Heart rate 64 /min Meggan Broussard Work Phone: [facility] Work Phone: 11-14-2022 12:42-0500 Systolic blood pressure 115 mm[Hg] Meggan Broussard Work Phone: [facility] Work Phone: 07-30-2022 09:41-0400 Body height 160.02 cm Meggan Broussard Work Phone: [facility] Work Phone: 07-30-2022 09:41-0400 Body mass index (BMI) [Ratio] 45.35 kg/m2 Meggan Broussard Work Phone: [facility] Work Phone: 07-30-2022 09:41-0400 Body surface area Derived from formula 2.15 m2 Meggan Broussard Work Phone: [facility] Work Phone: 07-30-2022 09:41-0400 Body weight 116.12 kg Meggan Broussard Work Phone: [facility] Work Phone: 07-30-2022 09:41-0400 Diastolic blood pressure 76 mm[Hg] Meggan Broussard Work Phone: [facility] Work Phone: 07-30-2022 09:41-0400 Heart rate 64 /min Meggan Broussard Work Phone: [facility] Work Phone: 07-30-2022 09:41-0400 SaO2% (BldA) [Mass fraction] 99 % Meggan Broussard Work Phone: [facility] Work Phone: 07-30-2022 09:41-0400 Systolic blood pressure 114 mm[Hg] Meggan Broussard Work Phone: [facility] Work Phone: 07-17-2022 12:18-0400 Body temperature 97.81 [degF] Shasha Payne APRN.INVENTORY CONTROL/SHIPPING RECEIVING Work Phone: [facility] 07-17-2022 12:18-0400 Diastolic blood pressure 88 mm[Hg] Shasha Payne APRN.INVENTORY CONTROL/SHIPPING RECEIVING Work Phone: [facility] 07-17-2022 12:18-0400 Heart rate 96 /min Shasha Payne APRN.INVENTORY CONTROL/SHIPPING RECEIVING Work Phone: [facility] 07-17-2022 12:18-0400 Respiratory rate 18 /min Shasha Payne APRN.INVENTORY CONTROL/SHIPPING RECEIVING Work Phone: [facility] 07-17-2022 12:18-0400 SaO2% (BldA) [Mass fraction] 96 % hSasha Payne APRN.INVENTORY CONTROL/SHIPPING RECEIVING Work Phone: [facility] 07-17-2022 12:18-0400 Systolic blood pressure 138 mm[Hg] Shasha Payne APRN.INVENTORY CONTROL/SHIPPING RECEIVING Work Phone: [facility] 04-30-2022 09:49-0400 Body height 160.02 cm Meggan Russel Broussard Work Phone: [facility] Work Phone: 04-30-2022 09:49-0400 Body mass index (BMI) [Ratio] 51.73 kg/m2 Meggan Broussard Work Phone: [facility] Work Phone: 04-30-2022 09:49-0400 Body surface area Derived from formula 2.27 m2 Meggan Broussard Work Phone: [facility] Work Phone: 04-30-2022 09:49-0400 Body weight 132.45 kg Meggan Broussard Work Phone: [facility] Work Phone: 04-30-2022 09:49-0400 Diastolic blood pressure 82 mm[Hg] Meggan Broussard Work Phone: [facility] Work Phone: 04-30-2022 09:49-0400 Heart rate 72 /min Meggan Broussard Work Phone: [facility] Work Phone: 04-30-2022 09:49-0400 Systolic blood pressure 126 mm[Hg] Meggan Broussard Work Phone: [facility] Work Phone: 01-29-2022 10:40-0400 Body temperature 98.6 [degF] April Will POPCORN VENDOR.INVENTORY CONTROL/SHIPPING RECEIVING Work Phone: [facility] 01-29-2022 10:40-0400 Body weight 131.63 kg April Will POPCORN VENDOR.INVENTORY CONTROL/SHIPPING RECEIVING Work Phone: [facility] 01-29-2022 10:40-0400 Diastolic blood pressure 90 mm[Hg] April Will POPCORN VENDOR.INVENTORY CONTROL/SHIPPING RECEIVING Work Phone: [facility] 01-29-2022 10:40-0400 Heart rate 80 /min April Will POPCORN VENDOR.INVENTORY CONTROL/SHIPPING RECEIVING Work Phone: [facility] 01-29-2022 10:40-0400 Respiratory rate 22 /min April Will POPCORN VENDOR.INVENTORY CONTROL/SHIPPING RECEIVING Work Phone: [facility] 01-29-2022 10:40-0400 SaO2% (BldA) [Mass fraction] 98 % April Will KINGSLEY.INVENTORY CONTROL/SHIPPING RECEIVING Work Phone: [facility] 01-29-2022 10:40-0400 Systolic blood pressure 132 mm[Hg] April Hydehorace BOYDINVENTORY CONTROL/SHIPPING RECEIVING Work Phone: [facility] 02-23-2021 16:04-0400 Body height 160 cm Meggan Broussard Other Phone: [facility] 02-23-2021 16:04-0400 Body temperature 97.88 [degF] Meggan Broussard Other Phone: [facility] Encounters Encounter Date Encounter Type Care Provider Facility Start: 09-13-2023 End: 09-14-2023 ambulatory DANIELLA ALLAN [facility] Start: 09-13-2023 End: 09-13-2023 Subsequent hospital visit by physician Daniella Allan MD Work Phone: [facility] [place] Procedures Date Procedure Procedure Detail Performing Clinician Start: 09-13-2023 SURGICAL PATHOLOGY EXAM DANIELLA ALLAN Start: 09-13-2023 PLACE IN OUTPATIENT/HOSPITAL AMBULATORY SURGERY DANIELLA ALLAN Start: 09-13-2023 Colsc flx w/rmvl of tumor polyp lesion snare tq Meggan Broussard PA-C Work Phone: Start: 09-13-2023 Colonoscopy [facility] 04 Start: 07-24-2023 Mammography [facility] 04 Start: 11-13-2022 Thyrotropin [Units/v olume] in Serum or Plasma Meggan Broussard PA-C Work Phone: Start: 07-28-2022 Lipid 1996 panel - S mauro or Plasma Meggan Broussard PA-C Work Phone: Start: 12-11-2011 Operative procedure on ankle Meggan Broussard Work Phone: Plan of Treatment Date Care Activity Detail Author Start: 2033 Zoster Vaccines (1 o f 2) Zoster Vaccines (1 of 2) [facility] Start: 09-12-2026 Screening for malign ant neoplasm of colon [facility] Start: 07-24-2024 Screening for malign ant neoplasm of breast Mammogram [facility] Start: 11-13-2023 Thyroid stimulating hormone measurement TSH Level [facility] Start: 08-19-2023 End: 08-19-2023 Patient encounter procedure 08/19/2023 9:00 AM EST Office Visit [facility] [address] [place] [id number] Meggan Broussard, ENRIKE [address] [place] [address] [facility] Start: 07-28-2023 Lipid panel Lipid Panel [facility] Start: 07-28-2023 Urine screening for protein Diabetes: Urine Protein Screening [facility] Start: 06-07-2023 Influenza vaccination Influenza Vacc ine (#1) [facility] Start: 05-22-2023 End: 09-06-2023 Colonoscopy Colonoscopy Endoscopy Routine Screening for colon cancer Expected: 05/22/2023, Expires: 09/06/2023 [facility] Work Phone: Immunizations Immunization Date Immunization Notes Care Provider Fa cili 07-30-2022 influenza, injectabl e, quadrivalent, preservative free; Translations: [Flulaval Quadrivalent 0.5 ML Intramuscular Suspension Prefilled Syringe] Meggan Broussard Work Phone: [facility] Work Phone: Payers Date Payer Category Payer Private Health Insurance PAUL HOLLIS OAP [id number] 2020-Present [phone] LIBBY [id number] AUDELIA NORRIS [id number] Open Access [id number] 2020 Private Health Insurance [id number] 2020 Private Health Insurance [id number] 2017 Unknown 1983 Unknown [id number] 1983 Unknown [id number] 1983 Unknown [id number] 1983 Unknown [id number] 1983 Unknown [id number] 1983 Unknown [id number] 1983 Unknown [id number] 1983 Unknown [id number] Social History Date Type Detail Facility [facility] Tobacco smoking consumption unknown [facility] Start: 03-30-2011 End: 12-08-2022 Tobacco smoking status NHIS Never smoked tobacco [facility] Start: 01-29-2022 End: 09-13-2023 Alcohol intake Current drinker of alcohol (finding) [facility] Start: 11-18-2017 [facility] Start: 1985 Sex Assigned At Not on file C [facility] Start: 01-19-2022 End: 09-13-2023 Exposure to SARS-CoV-2 (event) Not sure [facility] Work Phone: Start: 05-22-2023 End: 09-13-2023 Occasional alcohol use Occasional alcohol use [facility] Work Phone: Start: 03-30-2011 End: 12-08-2022 Tobacco use and exposure Smokeless tobacco non-user [facility] Work Phone: Start: 05-22-2023 End: 09-13-2023 Tobacco use panel [facility] Work Phone: Clinical Notes 06-05-2021 to 09-13-2023 Discharge InstructionsDaniella Allan MD - 09/13/2023 8:00 AM ESTDaniella Allan MD - 09/13/2023 8:00 AM Erwin Broussard PA-C - 05/22/2023 9:00 AM EDTPatient Instructions Note Date & Type Note Facility 09-13-2023 Hospital Discharge instructions Rei Soliz RN - 09/13/2023 8:42 AM EST Patient Instructions after a Colonoscopy The anesthetics, sedatives or narcotics which were given to you today will be acting in your body for the next 24 hours, so you might feel a little sleepy or groggy. This feeling should slowly wear off. Carefully read and follow the instructions. You received sedation today: - Do not drive or operate any machinery or power tools of any kind. - No alcoholic beverages today, not even beer or wine. - Do not make any important decisions or sign any legal documents. - No over the counter medications that contain alcohol or that may cause drowsiness. - Do not make any important decisions or sign any legal documents. While it is common to experience mild to moderate abdominal distention, gas, or belching after your procedure, if any of these symptoms occur following discharge from the GI Lab or within one week of having your procedure, call the [facility] to be advised whether a visit to your nearest Urgent Care or Emergency Department is indicated. Take this paper with you if you go. - If you develop an allergic reaction to the medications that were given during your procedure such as difficulty breathing, rash, hives, severe nausea, vomiting or lightheadedness. - If you experience chest pain, shortness of breath, severe abdominal pain, fevers and chills. -If you develop signs and symptoms of bleeding such as blood in your spit, if your stools turn black, tarry, or bloody - If you have not urinated within 8 hours following your procedure. - If your IV site becomes painful, red, inflamed, or looks infected. If you received a biopsy/polypectomy/sphincterotomy the following instructions apply below: __ Do not use Aspirin containing products, non-steroidal medications or anti-coagulants for one week following your procedure. (Examples of these types of medications are: Advil, Arthrotec, Aleve, Coumadin, Ecotrin, Heparin, Ibuprofen, Indocin, Motrin, Naprosyn, Nuprin, Plavix, Vioxx, and Voltarin, or their generic forms. This list is not all-inclusive. Check with your physician or pharmacist before resuming medications.) __ Eat a soft diet today. Avoid foods that are poorly digested for the next 24 hours. These foods would include: nuts, beans, lettuce, red meats, and fried foods. Start with liquids and advance your diet as tolerated, gradually work up to eating solids. __ Do not have a Barium Study or Enema for one week. Your physician recommends the additional following instructions: -You have a contact number available for emergencies. The signs and symptoms of potential delayed complications were discussed with you. You may return to normal activities tomorrow. -Resume your previous diet. -Continue your present medications. -We are waiting for your pathology results. -Your physician has recommended a repeat colonoscopy (date to be determined after pending pathology results are reviewed) for surveillance based on pathology results. -The findings and recommendations have been discussed with you. -The findings and recommendations were discussed with your family. - Please see Medication Reconciliation Form for new medication/medications prescribed. If you experience any problems or have any questions following discharge from the GI Lab, please call: Nurse Signature Date Patient/Responsible Libertarian Signature Date documented in this encounter [facility] Work Phone: 09-13-2023 History and physical note Pre procedure H&P Pt feels fine , no complaint General appearance: Comfortable, no distress ROS: No SOB Medications reviewed Head: Normal Neck: Soft Heart: Regular Lungs: Clear Abdomen: soft Impression: clinically doing fine, proceed with procedure Problem List Items Addressed This Visit None Visit Diagnoses Encounter for screening for malignant neoplasm of colon Relevant Orders Colonoscopy Screening [facility] Work Phone: 09-13-2023 History and physical note Pre procedure H&P Pt feels fine , no complaint General appearance: Comfortable, no distress ROS: No SOB Medications reviewed Head: Normal Neck: Soft Heart: Regular Lungs: Clear Abdomen: soft Impression: clinically doing fine, proceed with procedure Problem List Items Addressed This Visit None Visit Diagnoses Encounter for screening for malignant neoplasm of colon Relevant Orders Colonoscopy Screening documented in this encounter [facility] Work Phone: 05-22-2023 History of Present illness Narrative Subjective Patient ID: Rei Sloan is a 38 y.o. female who presents for Follow-up (6 MO F/U-NO LABS DONE; C/O PANIC ATTACKS OFF/ON X 1 MO) HPI to Review labs- not done Med check mood-on zoloft - inc in anxiety HTN - stable on labetalol- - she has cut herself down and on ave taking 3 tab po bid morbid obese - working on diet and ex - was following [facility] a health coach [facility] but admits with inc stress stress eating HEVER - has CPAP Preventative testing PAP mammo DEXA colonoscopy Phq2 - - score of 2 - known depression Fall - NEG flu shot given in office in the fall 2021 Patient Active Problem List Diagnosis Benign essential hypertension Depression, major, single episode, mild (CMS/HCC) ANEUDY (generalized anxiety disorder) Heart palpitations Hypercholesterolemia with hypertriglyceridemia Nasal congestion Hypothyroidism Thyroid nodule Type 2 diabetes mellitus with hyperglycemia, without long-term current use of insulin (CMS/HCC) Malaise and fatigue HEVER on CPAP Weight loss Class 3 severe obesity due to excess calories with serious comorbidity and body mass index (BMI) of 45.0 to 49.9 in adult (CMS/HCC) Family history of colon cancer Review of Systems Constitutional: Positive for fatigue. Negative for chills and fever. HENT: Negative for congestion, rhinorrhea, sinus pain, sore throat and tinnitus. Eyes: Negative for discharge, redness and visual disturbance. Respiratory: Negative for cough, chest tightness, shortness of breath and wheezing. Cardiovascular: Negative for chest pain, palpitations and leg swelling. Gastrointestinal: Negative for abdominal pain, constipation, diarrhea, nausea and vomiting. Endocrine: Negative for cold intolerance and heat intolerance. Genitourinary: Negative for flank pain, frequency and urgency. Musculoskeletal: Negative for back pain, gait problem and neck pain. Skin: Negative for rash and wound. Neurological: Negative for dizziness, tremors, syncope, numbness and headaches. Hematological: Does not bruise/bleed easily. Psychiatric/Behavioral: Negative for confusion, sleep disturbance and suicidal ideas. The patient is nervous/anxious. Past Medical History: Diagnosis Date Other specified postprocedural states History of Papanicolaou smear Past Surgical History: Procedure Laterality Date ANKLE SURGERY 12/11/2011 LESION REMOVED 10MM IN SIZE KNEE SURGERY Left 1998 RECONSTRUCTION Family History Problem Relation Name Age of Onset Hypertension Mother Cancer Father COLON Diabetes Father Hypertension Father Stroke Father Cancer Other GRANDPARENT LUNG Diabetes Other GRANDPARENT Stroke Other GRANDPARENT Other (MYOCARDIAL INFRACTION) Other GRANDPARENT Social History Tobacco Use Smoking status: Never Smokeless tobacco: Never Vaping Use Vaping Use: Never used Substance Use Topics Alcohol use: Yes Drug use: Never Allergies Allergen Reactions Sulfamethoxazole Rash and Other Current Outpatient Medications Medication Sig Dispense Refill sertraline (Zoloft) 100 mg tablet Take 1 tablet (100 mg) by mouth once daily. busPIRone (Buspar) 5 mg tablet Take 1 tablet (5 mg) by mouth 3 times a day as needed (anxiety). 60 tablet 1 labetalol (Normodyne) 200 mg tablet TAKE 3 TABLETS BID 120 tablet 5 levothyroxine (Synthroid, Levoxyl) 25 mcg tablet Take 1 tablet (25 mcg) by mouth once daily. DIRECTED 30 tablet 5 No current facility-administered medications for this visit. Objective BP 126/80 Pulse 73 Ht 1.6 m (5' 3 ) Wt 122 kg (269 lb) BMI 47.65 kg/m Physical Exam Vitals reviewed. Constitutional: Appearance: Normal appearance. She is obese. HENT: Head: Normocephalic. Right Ear: External ear normal. Left Ear: External ear normal. Nose: Nose normal. No congestion or rhinorrhea. Mouth/Throat: Mouth: Mucous membranes are moist. Eyes: Extraocular Movements: Extraocular movements intact. Conjunctiva/sclera: Conjunctivae normal. Pupils: Pupils are equal, round, and reactive to light. Cardiovascular: Rate and Rhythm: Normal rate and regular rhythm. Pulses: Normal pulses. Pulmonary: Effort: Pulmonary effort is normal. Breath sounds: Normal breath sounds. Abdominal: General: Bowel sounds are normal. Palpations: Abdomen is soft. Tenderness: There is no abdominal tenderness. There is no right CVA tenderness or left CVA tenderness. Musculoskeletal: General: No tenderness. Normal range of motion. Cervical back: Normal range of motion and neck supple. No tenderness. Skin: General: Skin is warm and dry. Neurological: General: No focal deficit present. Mental Status: She is alert and oriented to person, place, and time. Psychiatric: Mood and Affect: Mood normal. Behavior: Behavior normal. Testing Reviewed old labs on file Explained the need for updated labs Impression MDM 1) COMPLEXITY: MORE THAN 1 STABLE CHRONIC CONDITION ADDRESSED 2)DATA: TESTS INTERPRETED AND OR ORDERED, TOOK INDEPENDENT HISTORY OR RECORDS REVIEWED 3)RISK: MODERATE RISK DUE TO NATURE OF MEDICAL CONDITIONS/COMORBIDITY OR MEDICATIONS ORDERED OR SURGICAL OR PROCEDURE REFERRAL, . Reviewed labs and Testing on file Patient to follow diet low in cholesterol, fat, and sodium. Patient is advised to increase Exercise. Patient is recommended to lose weight. Reviewed Meds and discussed common side effects Continue as directed Anxiety - add on buspar and cont on zoloft Work on this naturally Work on diet and ex Patient is strongly advised to be compliant with recommendations. Return to Clinic sooner if needed. Patient denies further questions/concerns at this time Assessment/Plan Problem List Items Addressed This Visit Benign essential hypertension Relevant Medications labetalol (Normodyne) 200 mg tablet Depression, major, single episode, mild (CMS/HCC) ANEUDY (generalized anxiety disorder) - Primary Relevant Medications busPIRone (Buspar) 5 mg tablet Hypercholesterolemia with hypertriglyceridemia Hypothyroidism Relevant Medications levothyroxine (Synthroid, Levoxyl) 25 mcg tablet Type 2 diabetes mellitus with hyperglycemia, without long-term current use of insulin (CMS/HCC) Malaise and fatigue HEVER on CPAP Class 3 severe obesity due to excess calories with serious comorbidity and body mass index (BMI) of 45.0 to 49.9 in adult (CMS/[facility]) Family history of colon cancer Other Visit Diagnoses Encounter for screening mammogram for breast cancer Relevant Orders BI mammo bilateral screening tomosynthesis Screening for colon cancer Relevant Orders Colonoscopy FU in 1-2 mo with med check Set up screening [facility]x of colon cancer documented in this encounter [facility] Work Phone: 07-17-2022 History of Present illness Narrative CC: Patient presents with: Nasal Congestion: Cough, x4 days, denied SOB, chest pain. HPI: Rei Sloan is a 37 year old female who presents to the office with complaint of head congestion, cough, nonproductive, and sinus symptoms for a few days. Symptoms are worsening Associated symptoms includes nasal congestion. Denies headache, body aches, fever, ear pain, decreased appetite, nausea, vomiting , and diarrhea. Treatments tried include nothing so far. with no relief of symptoms. Sick contacts: unknown. History of asthma, frequent episodes of bronchitis, chronic bronchitis, bronchiectasis or COPD: No Smoker: No Seasonal/environmental allergies: No The ROS is otherwise negative. The patient's pmh, medications, allergies, and past visits are reviewed. PHYSICAL EXAM: BP 138/88 Pulse 96 Temp 36.6 C (97.8 F) Resp 18 LMP 12/24/2016 SpO2 96% General appearance: alert, cooperative, pleasant, in no acute distress Head: Normocephalic Eyes: EOM's intact, conjunctiva pink and moist, no icterus, sclera white, non-injected Ears: Right ear: External ear/canal- Normal, TM - clear with good landmarks. Left ear: External ear/canal- Normal, TM - clear with good landmarks Oropharynx:moist without lesions, No erythema, exudates or tonsillar hypertrophy. Heart: Negative. RRR without obvious murmur, gallop, or rubs. No ectopy. Lungs: clear to auscultation, without rales or wheeze, good air exchange PAST MEDICAL HISTORY Diagnosis Date Anxiety and depression Dysmetabolic syndrome 03/07/2011 Essential hypertension Multinodular thyroid 03/07/2011 PAST SURGICAL HISTORY Procedure Laterality Date ANKLE SURGERY HX Right osteochondritis dessicans SECTION HX KNEE SURGERY HX Left ACL repair, screw removal ALLERGIES Sulfa (Sulfonamide Antibiotics) MEDICATIONS acetaminophen (TYLENOL 8 HOUR ORAL) Take by mouth. sertraline (ZOLOFT) 50 mg tablet Take 50 mg by mouth once daily. LABETALOL HCL (LABETALOL ORAL) Take by mouth. [START ON 07/21/2022] amoxicillin-clavulanic acid (AUGMENTIN) 875-125 mg per tablet Take 1 tablet by mouth twice daily for 5 days. predniSONE (DELTASONE) 20 mg tablet Take 2 tablets by mouth once daily for 5 days. loratadine (CLARITIN) 10 mg tablet Take 1 tablet by mouth once daily. No family history on file. Social History Tobacco Use Smoking status: Never Smokeless tobacco: Never Substance Use Topics Alcohol use: Yes Comment: occasionally Drug use: Never ASSESSMENT/PLAN: 1. Acute cough - ICD9: 786.2, ICD10: R05.1 Augmentin twice a day for 5 days was postdated for day 8 of sickness. Prednisone was prescribed to help alleviate congestion and discomfort Prescription instructions reviewed with patient as applicable. Potential red flag symptoms discussed with the patient. Reviewed appropriate action plan to take if red flag symptoms occur. Patient agreeable to treatment plan. Shasha Payne APRN.DEN documented in this encounter [facility] 01-29-2022 Influenza virus A and B RNA and SARS-CoV-2 (COVID-19) N gene panel MAE+probe (Resp) COVID 19 RESULT: SARS-CoV-2 (Agent of COVID-19) Not Detected by RT-PCR or equivalent method. danii [id number] (PARAMJIT)_EUA This test was developed and its performance characteristics determined by [facility] [place]. This test has been authorized by FDA under an Emergency Use Authorization (EUA). This test has been validated in accordance with the FDA's Guidance Document Policy for Diagnostics Testing in Laboratories Certified to Perform High Complexity Testing under CLIA prior to Emergency use Authorization for Coronavirus Disease 2019 during the Public Health Emergency issued on December 05, 2019. Test performed by [facility], [facility] [place], [address], [place] [address]. INFLUENZA A PCR: Positive for Influenza A by RT-PCR INFLUENZA B PCR: Negative for Influenza B by RT-PCR [facility] Acute cough- Primary [facility] Diagnosis ANEUDY (generalized anxiety disorder)- Primary Generalized anxiety disorder Benign essential hypertension Essential hypertension, benign Hypothyroidism, unspecified type Encounter for screening mammogram for breast cancer Screening for colon cancer Special screening for malignant neoplasms, colon Hypercholesterolemia with hypertriglyceridemia Class 3 severe obesity due to excess calories with serious comorbidity and body mass index (BMI) of 45.0 to 49.9 in adult ([facility]) Type 2 diabetes mellitus with hyperglycemia, without long-term current use of insulin ([facility]) Depression, major, single episode, mild ([facility]) HEVER on CPAP Malaise and fatigue Family history of colon cancer Family history of malignant neoplasm of gastrointestinal tract documented in this encounter [facility] Work Phone: Evaluation note* Diagnosis Encounter for screening for malignant neoplasm of colon documented in this encounter [facility] Work Phone: History of Present illness Narrative* Patient presents today for.... * 1 to Review labs -not done * 2 Med check * mood-on zoloft and believes is a good dose * HTN - stable on labetalol- consider change in med as she takes tid and sometimes is hard to get in the dose in the middle of the day * morbid obese - working on diet and ex [facility] Work Phone: History of Present illness Narrative* Patient presents today for.... * 1 to Review labs * 2 Med check * mood-on zoloft and believes is a good dose * HTN - stable on labetalol- * morbid obese - working on diet and ex - currently following with a health coach [employer] on a program [facility] * 3 heart palp x 1 week * pt denies inc in caffeine, inc in stress, poor sleep * pt has HEVER and is using machine faithfully * she denies CP, SOB, fatigue or other symptoms to make her thinks this is cardiac in nature * 4 Preventative testing * PAP * mammo * DEXA * colonoscopy * flu shot given in office [facility] Work Phone: History of Present illness Narrative* Patient presents today for.... * 1 to Review labs * 2 Med check * mood-on zoloft and believes is a good dose - thinking she may taper down comes spring /summer pending how she is feeling * HTN - stable on labetalol- - she has cut herself down and on ave taking 3 tab po bid but questions if she is still taking too much with her weight loss and how she is feeling * morbid obese - working on diet and ex - currently following with a health coach professional athletes on a program [employer] * HEVER - has CPAP but given her weight loss questions if the settings need adjusted - pt states she isreally gasey when she uses her CPAP over the last month and questions if the symptoms are secondaryto her CPAP need changing * 3 Abd Pain * she is waking up about 4 hr after using her CPAP machine with abd pain and gas - belching and flatulence. Pt denies diarrhea/constipation. occasional pain - burning in the RUQ. * unsure of triggers with food * pt denies feeling like she has heartburn but she is belching * she has been using gas ex as needed * 4 Preventative testing * PAP * mammo * DEXA * colonoscopy * flu shot given in office in the fall 2021 [facility] Work Phone: Summary Purpose Family History No Family History Records FoundUnknown Family Member Name Dates Details Primary malignant neoplasm o f colon: Father Status:Active Primary malignant neoplasm o f lung: Grandparent Status:Active Family history of type 2 warner betes mellitus: Father, Grandparent(V18.0, Z83.3) Status:Active Family history of myocardial infarction: Grandparent(V17.3, Z82.49) Status:Active Family history of hypertensi on: Mother, Father(V17.49, Z82.49) Status:Active Family history of cerebrovas cular accident (CVA): Grandparent, Father(V17.1, Z82.3) Status:Active Unknown Family Member Name Dates Details Primary malignant neoplasm o f colon: Father Status:Active Primary malignant neoplasm o f lung: Grandparent Status:Active Family history of type 2 warner betes mellitus: Father, Grandparent(V18.0, Z83.3) Status:Active Family history of myocardial infarction: Grandparent(V17.3, Z82.49) Status:Active Family history of hypertensi on: Mother, Father(V17.49, Z82.49) Status:Active Family history of cerebrovas cular accident (CVA): Grandparent, Father(V17.1, Z82.3) Status:Active Unknown Family Member Name Dates Details Primary malignant neoplasm o f colon: Father Status:Active Primary malignant neoplasm o f lung: Grandparent Status:Active Family history of type 2 warner betes mellitus: Father, Grandparent(V18.0, Z83.3) Status:Active Family history of myocardial infarction: Grandparent(V17.3, Z82.49) Status:Active Family history of hypertensi on: Mother, Father(V17.49, Z82.49) Status:Active Family history of cerebrovas cular accident (CVA): Grandparent, Father(V17.1, Z82.3) Status:Active Unknown Family Member Name Dates Details Primary malignant neoplasm o f colon: Father Status:Active Primary malignant neoplasm o f lung: Grandparent Status:Active Family history of type 2 warner betes mellitus: Father, Grandparent(V18.0, Z83.3) Status:Active Family history of myocardial infarction: Grandparent(V17.3, Z82.49) Status:Active Family history of hypertensi on: Mother, Father(V17.49, Z82.49) Status:Active Family history of cerebrovas cular accident (CVA): Grandparent, Father(V17.1, Z82.3) Status:Active Unknown Family Member Name Dates Details Primary malignant neoplasm o f colon: Father Status:Active Primary malignant neoplasm o f lung: Grandparent Status:Active Family history of type 2 warner betes mellitus: Father, Grandparent(V18.0, Z83.3) Status:Active Family history of myocardial infarction: Grandparent(V17.3, Z82.49) Status:Active Family history of hypertensi on: Mother, Father(V17.49, Z82.49) Status:Active Family history of cerebrovas cular accident (CVA): Grandparent, Father(V17.1, Z82.3) Status:Active Unknown Family Member Name Dates Details Family history of cerebrovas cular accident (CVA): Grandparent, Father(V17.1, Z82.3) Status:Active Family history of hypertensi on: Mother, Father(V17.49, Z82.49) Status:Active Family history of myocardial infarction: Grandparent(V17.3, Z82.49) Status:Active Family history of type 2 warner betes mellitus: Father, Grandparent(V18.0, Z83.3) Status:Active Primary malignant neoplasm o f lung: Grandparent Status:Active Primary malignant neoplasm o f colon: Father Status:Active Unknown Family Member Name Dates Details Primary malignant neoplasm o f colon: Father Status:Active Primary malignant neoplasm o f lung: Grandparent Status:Active Family history of type 2 warner betes mellitus: Father, Grandparent(V18.0, Z83.3) Status:Active Family history of myocardial infarction: Grandparent(V17.3, Z82.49) Status:Active Family history of hypertensi on: Mother, Father(V17.49, Z82.49) Status:Active Family history of cerebrovas cular accident (CVA): Grandparent, Father(V17.1, Z82.3) Status:Active Advance Directives No Advanced Directives Records FoundNo Advanced Directives Records FoundNo Advanced Directives Records FoundNo Advanced Directives Records FoundNo Advanced Directives Records FoundNo Advanced Directives Records FoundNo Advanced Directives Records Found Health Concerns Infection Onset Date Last Indicated Resolved Time COVID-19 Rule-Out 01/29/2022 01/29/2022 Chief Complaint GENERAL CHECK UP (OVERDUE) - LAST SEEN 02/23/21. C/O HIGHER B/P READINGS RECENTLY - AVERAGE B/P 130-140 SYSTOLIC AND 70-80 DIASTOLIC AT HOME. HOWEVER, SHE DOES ADMITS SHE TENDS TO FORGET TO TAKE HER THIRD DOSE OF LABETALOL. SHE HAD ONE DAY A COUPLE WEEKS AGO WHERE SHE FELT AWFUL AND B/P WAS 215/88. SYMPTOMS QUICKLY RESOLVED AND SHE HAS FELT FINE SINCE.GENERAL CHECK UP (OVERDUE) - LAST SEEN 02/23/21. C/O HIGHER B/P READINGS RECENTLY - AVERAGE B/P 130-140 SYSTOLIC AND 70- 80 DIASTOLIC AT HOME. HOWEVER, SHE DOES ADMITS SHE TENDS TO FORGET TO TAKE HER THIRD DOSE OF LABETALOL. SHE HAD ONE DAY A COUPLE WEEKS AGO WHERE SHE FELT AWFUL AND B/P WAS 215/88. SYMPTOMS QUICKLY RESOLVED AND SHE HAS FELT FINE SINCE.3 [facility] F/U LABS AND MED CHECK. PT WANTS FLU VACCINEF/U WITH LABS. DISCUSS CPAP SETTINGS. C/O ABD PAIN Reason for Referral Specialty Diagnoses / Procedures Referred By Yudi ortiz Referred To Contact Gastroenterology Diagnoses Screening for colon cancer Procedures Colonoscopy Meggan Broussard PA-C [address] [place] [address] Referral ID Status Reason Start Date Expiration Date V isits Requested Visits Authorized [id number] Authorized 05/22/2023 11/18/2023 1 1 Specialty Diagnoses / Procedures Referred By Yudi ortiz Referred To Contact Radiology Diagnoses Encounter for screening mammogram for breast cancer Procedures BI mammo bilateral screening tomosynthesis Meggan Broussard PA-C [address] [place] [address] Referral ID Status Reason Start Date Expiration Date Visits Requested Visits Authorized [id number] Authorized Perform Procedure 05/22/2023 11/18/2023 1 1 Specialty Diagnoses / Procedures Referred By Yudi ortiz Referred To Contact Gastroenterology Diagnoses Encounter for screening for malignant neoplasm of colon Procedures Colonoscopy Screening Colonoscopy Screening Colonoscopy Screening NE COLONOSCOPY FLX DX W/COLLJ SPEC WHEN PFRMD NE COLON CA SCRN NOT HI RSK IND NE COLORECTAL SCRN; HI RISK IND NE COLONOSCOPY W/BIOPSY SINGLE/MULTIPLE NE COLSC FLX W/RMVL OF TUMOR POLYP LESION SNARE TQ NE COLSC FLX W/REMOVAL LESION BY HOT BX FORCEPS Meggan Broussard PA-C [address] [place] [address] Referral ID Status Reason Start Date Expiration Date V isits Requested Visits Authorized [id number] Authorized 06/20/2023 12/17/2023 1 1 Additional Source Comments INFORMATION SOURCE (unrecogn ized section and content) DATE CREATED AUTHOR AUTHOR'S ORGANIZ ATION 01/30/[address] [facility] DATE CREATED AUTHOR AUTHOR'S ORGANIZ ATION 11/15/2022 [employer] DATE CREATED AUTHOR AUTHOR'S ORGANIZ ATION 11/23/2022 [facility] DATE CREATED AUTHOR AUTHOR'S ORGANIZ ATION 12/13/2022 [facility] DATE CREATED AUTHOR AUTHOR'S ORGANIZ ATION 07/28/2023 [facility] DATE CREATED AUTHOR AUTHOR'S ORGANIZ ATION 09/18/2023 [facility] <item><item> Privacy Markings (unrecogniz ed section and content) Section Author: Carole Andres PROHIBITION ON REDISCLOSURE OF CONFIDENTIAL INFORMATION This notice accompanies a disclosure of information concerning a client made to you with the consent of such client. Section Author: Carole Andres PROHIBITION ON REDISCLOSURE OF CONFIDENTIAL INFORMATION This notice accompanies a disclosure of information concerning a client made to you with the consent of such client. Source Comments (unrecognize d section and content) In the event this informatio n is protected by the Federal Confidentiality of Alcohol and Drug Abuse Patient Records regulations: The Federal rules restrict any use of the information to criminally investigate or prosecute any alcohol or drug abuse patient.[facility] the event this information is protected by the Federal Confidentiality of Alcohol and Drug Abuse Patient Records regulations: The Federal rules restrict any use of the information to criminally investigate or prosecute any alcohol or drug abuse patient.[facility] Reason for Visit (unrecogniz ed section and content) Reason Comments Nasal Congestion Cough, x4 days, virgen ed SOB, chest pain. Reason Comments Follow-up 6 MO F/U-NO LABS DON E; C/O PANIC ATTACKS OFF/ON X 1 MO Specialty Diagnoses / Procedures Referred By Yudi ortiz Referred To Contact Gastroenterology Diagnoses Encounter for screening for malignant neoplasm of colon Procedures Colonoscopy Screening Colonoscopy Screening Colonoscopy Screening NE COLONOSCOPY FLX DX W/COLLJ SPEC WHEN PFRMD NE COLON CA SCRN NOT HI RSK IND NE COLORECTAL SCRN; HI RISK IND NE COLONOSCOPY W/BIOPSY SINGLE/MULTIPLE NE COLSC FLX W/RMVL OF TUMOR POLYP LESION SNARE TQ NE COLSC FLX W/REMOVAL LESION BY HOT BX FORCEPS Meggan Broussard PA-C [address] [place] [address] Referral ID Status Reason Start Date Expiration Date V isits Requested Visits Authorized [id number] Authorized 06/20/2023 12/17/2023 1 1 Care Teams (unrecognized sec tion and content) Patent Clerk Relationship Specialty Start Date End Date Meggan Broussard PA [address] [place], [place] [id number] PCP - General Internal Medicine 08/25/18 Patent Clerk Relationship Specialty Start Date End Date Meggan Broussard PA-C [address] [place] [address] PCP - General 02/08/20 Patent Clerk Relationship Specialty Start Date End Date Meggan Broussard PA-C [address] [place] [address] PCP - General 02/08/20 FOR RECORDS PERTAINING TO PATIENTS WHO ARE OR HAVE BEEN ENROLLED IN A CHEMICAL DEPENDENCY/SUBSTANCEABUSE PROGRAM, SOME INFORMATION MAY BE OMITTED. This clinical summary was aggregated from multiple sources. Caution should be exercised in using it in the provision of clinical care. This summary normalizes information from multiple sources, and as a consequence, information in this document may materially change the coding, format and clinical context of patient data. In addition, data may be omitted in some cases. CLINICAL DECISIONS SHOULD BE BASED ON THE PRIMARY CLINICAL RECORDS. [facility] [employer], [facility]. provides no warranty or guarantee of the accuracy or completeness of information in this document.
[2023-10-31 14:09] LABS: HPV APTIMA, High Risk Negative (Negative)
== END | disposition home or self-care (01) ==
PROVIDERS: PCP Physician Assistant Medical; Visit Provider Obstetrics & Gynecology
DX: Z12.4 Encounter for screening for malignant neoplasm of cervix (principal)
CPT/HCPCS: 87624; 88175; G0145